=== PATIENT | male | born 1945 | race Caucasian/White ===

== ENCOUNTER → 2019-04-22 13:05 | Outpatient (BNVA) | payer MEDICARE, OTHER, SELFPAY | PROVIDERS: Family Provider Physician Assistant Medical; PCP Internal Medicine Medical Oncology; Visit Provider Nurse Practitioner Family | DX: R06.02 Shortness of breath (principal); R50.9 Fever, unspecified | CPT/HCPCS: 71046; 87804 ==

== ENCOUNTER 2019-05-22 06:00 | Outpatient (CLI) | payer OTHER, MEDICARE, SELFPAY ==
--- NOTE | 2019-05-25 07:37 | ONC FU_ITS ---
Dr. Linares Patient Follow-Up Note Patient: Sai Esqueda Unit #: [id number]: [id number] Dicatated By: Ajay Linares M.D.Date of Visit:May 22, 2019 Onc Med Follow-up/Prog Note Chief Complaint: Myeloma. History of Present Illness: This is a 74 year-old man with IGA myeloma. I had been following him for a low-level IgA kappa monoclonal gammopathy, initially discovered on protein electrophoresis in March of 2008. His previous evaluation, which included bone marrow aspiration/biopsy, had not shown any evidence of myeloma. However, on a followup electrophoresis study in January 2012, the kappa light chain was mildly elevated, and the kappa/lambda ratio was significantly elevated at 26.5. In addition, his IgA level was significantly elevated at 1700 mg/dL. Repeat bone marrow aspiration/biopsy on 01/25/2012 showed increased cellularity at 80% with plasma cells estimated at 14% of the differential. The plasma cells also showed moderate atypical features, including some with binucleation. The FISH panel for myeloma was abnormal, showing 3 copies of the CKS 1B locus at 1q 21 in 65% of the cells, 3 copies of ASS1 locus at 9q34 in 82.5% of the cells, 3 copies of the CCND1 locus at 11q13 in 80.5% of the cells, and 3 copies of the PML locus at 15q22 an 88.5% of cells. He had further staging with PET/CT which showed no evidence of lytic bone involvement. Based on the bone marrow aspiration/biopsy findings, he did appear to have multiple myeloma. His staging evaluation did not show any definite indication for treatment. However, he was increasingly symptomatic in terms of his extreme fatigue, generalized pain, and other symptoms. He was pretty much insistent on starting some form of treatment, and ultimately I did agree to give him a trial of therapy with Velcade/dexamethasone. He began his first cycle in March 2012. Treatment was stopped after the first week (second dose of Velcade) due to multiple side effects. As yet, he has not had any further treatment. He did have a second opinion evaluation at [facility] in October 2012. 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 He has had chronic complaints of profound fatigue and generalized pain. I have not been able to determine a specific cause it. It has been a long-standing problem, and he has attributed it to having had a significant exposure to agent orange during service in [place]. He does have posttraumatic stress disorder. In October of 2011 he was found to have multiple pulmonary emboli by CT pulmonary angiogram. He was anticoagulated initially with Lovenox and subsequently with warfarin, but he had poor tolerance for multiple anticoagulants, including warfarin, Pradaxa, and Xarelto. He has since then just remained on prophylaxis with aspirin, but with no further thromboembolism. In November 2014 he sustained a traumatic fracture of his right humerus. This apparently was a through and through but minimally displaced fracture of the mid humerus. He was seen by an orthopedic surgeon in [place]. There was no indication for surgery, and the fracture was managed conservatively with immobilization. A follow-up x-ray did show evidence of healing. He has continued observation/expectant management for the myeloma, thus far with no obvious progression. His medical illnesses, in addition to IgA myeloma, include COPD, peptic ulcer disease, and degenerative arthritis. He had an episode of pulmonary embolism in 2011. He has posttraumatic stress disorder, and he reports having had significant chemical exposure to agent orange during the [place]. He has chronic fatigue and chronic pain. He has a history of smoking 1 pack of cigarettes daily for approximately 25 years. He quit approximately 1984. He has had some alcohol use in the past, but never heavy. INTERIM HISTORY: A skeletal survey done through the [facility] on 10/19/2018 reported and ill defined lesion involving the midshaft of the right humerus with some expansion of the cortex and with the appearance of an expansile lesion. No other definite bone lesion was identified. There were degenerative changes noted to involve the spine, sacroiliac joints, shoulders, hips, knees, feet, wrists, and hands. He was seen for a scheduled visit on 11/21/2018. At that time he reported new pain in his upper back on the right side and in his lower back/left hip area. With the findings reported on the skeletal survey and with his having new bone pain, I had recommended a restaging PET/CT. That study was completed on 11/25/2018. It showed no findings to indicate osseous metastatic disease. However, compared to the prior study from December 2017, there was development of hypermetabolic lymph nodes in the subcarinal region, right hilum, and bilateral perihilar regions, suspicious for lymphoma. The largest was a right hilar node measuring 1.4 cm with SUV 7.7. As the adenopathy did not appear to correlate with his symptoms, I had recommended close observation/expectant management. He is seen for a scheduled visit. He complains that he is so tired that he cannot hardly lift up his feet. He is still doing light work at home. ECOG score is 1. He has good appetite. He has intermittent low-grade fever, maximum 101 degrees. He has chills and sweating. He recently has had 2 rounds of antibiotic therapy with Augmentin for symptoms of respiratory infection including productive cough and difficulty breathing. He has not been having chest pain. He says he has nausea all the time. He has ongoing problems with constipation. He has to take 4 Dulcolax tablets to get his bowels to move. He still sometimes has difficulty voiding, but his bladder function lately has been pretty good. His pain has been getting worse, and he says his pain pills aren't working. The pain is mainly in the lower back and legs. He also complains that for the past month and a half he has been getting pretty dizzy. He has no focal neurologic symptoms. Medications: B-6 1 (500 mg) Tablet Oral daily, Cholecalciferol 1 (5000 Units) Capsule Oral daily, Magnesium Capsule Oral daily, OxyCODONE HCl 1 (10 mg) Tablet Oral four times a day PRN, Pantoprazole Sodium 1 (40 mg) Tablet, enteric coated Oral daily, Spiriva HandiHaler Capsule Inhalation daily, Trelegy Ellipta 1 (100-62.5-25 mcg/inh) Aerosol Powder, Breath Activated Inhalation q 6 hours, Xanax 1 (0.5 mg) Tablet Oral t.i.d. Allergies: antiinflammatory drugs, Aspirin, Carafate, Codeine Sulfate, Pradaxa, and Prednisone. Review of Systems: Constitutional - He complains that he is so tired he can hardly lift up his feet. He is still doing light work at home. His appetite has been OK, and his weight is stable. He has had fever with his lung infection. The maximum has been 101???. He has chills and sweating. ECOG score is 1, ENMT - He is not having sinus congestion/drainage. No mouth sores. No sore throat or difficulty swallowing, Hematologic/Lymphatic - No abnormal bruising or bleeding, Respiratory - He has had bronchial infection and difficulty breathing. He has cough productive of green sputum. He has had 2 rounds of Augmenetin. He has no pleuritic pain or hemoptysis, Cardiovascular - He is not having chest pain or palpitations, Gastrointestinal - He complains that he is nauseated all the time. No vomiting. His acid reflux is managed adequately with Protonix. He has chronic constipation. No blood in the stool or black stools, Genitourinary (M) - His bladder function has been pretty good. He sometimes has trouble voiding when he first gets up in the morning. No dysuria or hematuria. No urinary frequency. No urgency or incontinence, Musculoskeletal - He has pain in his back and pain down the backs of his legs, Integumentary - He has a small area of skin rash on the left side of his neck, Neurologic - No headache. He has been pretty dizzy for the past 1 1/2 months. No numbness/paresthesias or other focal neurologic symptoms, Psychiatric - He has anxiety and depression. He has difficulty sleeping at night. Vital Signs: Blood pressure 102/68, pulse 73, respirations 17, temp 98.1 degrees, oxygen saturation 98%. Physical Examination: Constitutional - He appears somewhat weak generally, Eyes - Sclerae nonicteric. Conjunctivae clear, ENMT - No lesions noted in the oral cavity, Hematologic/Lymphatic - No cervical, clavicular, or axillary adenopathy, Respiratory - Lungs are clear with diminished air movement bilaterally, Cardiovascular - Heart rhythm is regular. There is no murmur, gallop, or rub noted, Abdomen - Soft. Liver and spleen are not enlarged. There is no abdominal mass or ascites noted and there is no inguinal adenopathy, Extremities - No edema, Neurologic - No focal neurologic deficits noted. Lab/Imaging: Test performed on May 15, 2019 13:25 LDH, Total 122 IU/L Test performed on May 15, 2019 10:51 Glucose 101 mg/dL BUN 13 mg/dL Creatinine 1.04 mg/dL Cr Clearance (Est) 72.27 mL/min Sodium 140 mmol/L Potassium 4.3 mmol/L Chloride 102 mmol/L CO2 27 mmol/L Calcium 9.0 mg/dL Protein, Total 7.2 g/dL Albumin 4.1 g/dL A/G Ratio 0.2 Absolute Value Bilirubin, Total 0.2 mg/dL Alkaline Phosphatase 90 IU/L AST (SGOT) 17 IU/L ALT (SGPT) 12 IU/L Sed Rate 14 mm/hr WBC 6.2 10^9/L RBC 4.36 10^12/L HGB 13.8 g/dL HCT 41.2 % MCV 94.5 fl MCH 31.7 pg MCHC 33.5 g/dL RDW 13.5 % Platelet Count 230 10^9/L MPV 9.4 fL Neutrophils (Gran) 3.34 10^9/L Lymphocytes 2.37 10^9/L Monocytes 0.37 10^9/L Eosinophils 0.04 10^9/L Basophils 0.02 10^9/L Manual Lymphocytes 39 % Manual Monocytes 6 % Manual Eosinophils 1 % Manual Basophils 0 % [place] / Lambda Ratio 26.69 Absolute Value Lambda Light Chain (Quant) 1.27 mg/dL [place] Light Chain (Quant) 33.90 mg/dL Test performed on May 15, 2019 10:50 IGA 2080 mg/dL IGG 230 mg/dL IGM 5 mg/dL PSA 4.24 ng/mL Impression: 1. The patient has IgA kappa monoclonal gammopathy. His previous evaluation was consistent with smoldering myeloma. He has not had any definite indication for treatment. Because of his multiple complaints, he did have a brief trial of therapy with Velcade/Dexamethasone beginning in March 2012. He tolerated it poorly, and he has since then been monitored on observation/expectant management. 2. He had an episode of pulmonary embolism in October 2011. He received suboptimal treatment due to intolerance to multiple anticoagulants. He has since then just remained on aspirin prophylaxis with no further thromboembolism. 3. He has multiple chronic complaints which appear to be unrelated. The most significant have been extreme weakness/fatigue and difficulty breathing. 4. He has had evidence of underlying COPD. 5. He has degenerative arthritis. 6. He has post traumatic stress disorder related to service in [place]. He had significant agent orange exposure during that time. 7. In July 2016 he was found to have a gastric ulcer by EGD, though he had been taking both Protonix and Tagamet. During followup he has continued to have multiple complaints, mainly profound weakness/fatigue and chronic pain. He also has had chronic shortness of breath. There has previously been no documented progression of the myeloma, but he is now reporting increased pain in his upper back on the right side and in his lower back/left hip area. A skeletal survey in October 2018 showed findings which were felt to be suspicious for an expansile lesion in the right humerus, though I had suspected that it was most likely related to the previous fracture. He was then seen on a follow-up visit on 11/21/2018. At that time reported new bone pain in the upper back on the right side and in the lower back/left hip area. With those complaints, he had a restaging PET/CT on 11/25/2018. It showed no evidence of any osseous metastatic disease. However, there was new FDG avid adenopathy in the subcarinal region, right hilum, and bilateral perihilar regions which was felt to be suspicious for lymphoma. The largest node was in the right hilum measuring 1.4 cm with SUV 7.7. As his symptoms did not appear to correlate with the PET/CT findings, I had initially recommended observation/expectant management. His repeat CT scans of the chest, abdomen, and pelvis on 03/09/2019 showed no progression of the lymphadenopathy in the mediastinum. There were inflammatory type changes in both lungs. There was no other lymphadenopathy noted and there were no lytic bone lesions reported. At this point he continues to complain of extreme fatigue. He has worsening pain in the lower back and in both legs, and he continues to complain of shortness of breath. His blood counts were normal, and he has normal renal function and normal calcium. His sed rate also is normal at 14 mm/hour. His quantitative immunoglobulin levels show significantly elevated IgA at 2080 mg/dL. The protein electrophoresis is still pending, but it does appear likely that the myeloma has progressed. It will still be very difficult to determine, though, to what extent it may actually be symptomatic. Plan: If he is confirmed to have a significant increase in the M protein, I will entertain the possibility of restarting treatment for the myeloma. The concerns are that it will be very difficult to determine which if any of his symptoms may actually be due to the myeloma and the fact that he tolerated his previous treatment very poorly. Signed By: Ajay Linares M.D. <<Signature on File>>
== END 2019-05-22 06:01 | disposition home or self-care (01) ==
PROVIDERS: Family Provider Physician Assistant Medical; PCP Physician Assistant Medical; Visit Provider Internal Medicine Medical Oncology
DX: C90.00 Multiple myeloma not having achieved remission (principal); F43.10 Post-traumatic stress disorder, unspecified; J44.9 Chronic obstructive pulmonary disease, unspecified; M19.90 Unspecified osteoarthritis, unspecified site; Z57.5 Occupational exposure to toxic agents in other industries; Z79.899 Other long term (current) drug therapy; Z79.891 Long term (current) use of opiate analgesic; Z79.82 Long term (current) use of aspirin; Z86.711 Personal history of pulmonary embolism; Z87.891 Personal history of nicotine dependence
CPT/HCPCS: 99214

== ENCOUNTER 2019-08-21 11:39 | Outpatient (CLI) | payer MEDICARE, OTHER, SELFPAY ==
--- NOTE | 2019-08-24 06:56 | ONC FU_ITS ---
Dr. Linares Patient Follow-Up Note Patient: Sai Esqueda Unit #: [id number]: 1945 Dicatated By: Ajay Linares M.D.Date of Visit:August 21, 2019 Onc Med Follow-up/Prog Note Chief Complaint: Myeloma. History of Present Illness: This is a 74 year-old man with IGA myeloma. I had been following him for a low-level IgA kappa monoclonal gammopathy, initially discovered on protein electrophoresis in March of 2008. His previous evaluation, which included bone marrow aspiration/biopsy, had not shown any evidence of myeloma. However, on a followup electrophoresis study in January 2012, the kappa light chain was mildly elevated, and the kappa/lambda ratio was significantly elevated at 26.5. In addition, his IgA level was significantly elevated at 1700 mg/dL. Repeat bone marrow aspiration/biopsy on 01/25/2012 showed increased cellularity at 80% with plasma cells estimated at 14% of the differential. The plasma cells also showed moderate atypical features, including some with binucleation. The FISH panel for myeloma was abnormal, showing 3 copies of the CKS 1B locus at 1q 21 in 65% of the cells, 3 copies of ASS1 locus at 9q34 in 82.5% of the cells, 3 copies of the CCND1 locus at 11q13 in 80.5% of the cells, and 3 copies of the PML locus at 15q22 an 88.5% of cells. He had further staging with PET/CT which showed no evidence of lytic bone involvement. Based on the bone marrow aspiration/biopsy findings, he did appear to have multiple myeloma. His staging evaluation did not show any definite indication for treatment. However, he was increasingly symptomatic in terms of his extreme fatigue, generalized pain, and other symptoms. He was pretty much insistent on starting some form of treatment, and ultimately I did agree to give him a trial of therapy with Velcade/dexamethasone. He began his first cycle in March 2012. Treatment was stopped after the first week (second dose of Velcade) due to multiple side effects. As yet, he has not had any further treatment. He did have a second opinion evaluation at [facility] in October 2012. 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 He has had chronic complaints of profound fatigue and generalized pain. I have not been able to determine a specific cause it. It has been a long-standing problem, and he has attributed it to having had a significant exposure to agent orange during service in [place]. He does have posttraumatic stress disorder. In October of 2011 he was found to have multiple pulmonary emboli by CT pulmonary angiogram. He was anticoagulated initially with Lovenox and subsequently with warfarin, but he had poor tolerance for multiple anticoagulants, including warfarin, Pradaxa, and Xarelto. He has since then just remained on prophylaxis with aspirin, but with no further thromboembolism. In November 2014 he sustained a traumatic fracture of his right humerus. This apparently was a through and through but minimally displaced fracture of the mid humerus. He was seen by an orthopedic surgeon in [place]. There was no indication for surgery, and the fracture was managed conservatively with immobilization. A follow-up x-ray did show evidence of healing. He has continued observation/expectant management for the myeloma, thus far with no obvious progression. His medical illnesses, in addition to IgA myeloma, include COPD, peptic ulcer disease, and degenerative arthritis. He had an episode of pulmonary embolism in 2011. He has posttraumatic stress disorder, and he reports having had significant chemical exposure to agent orange during the [place]. He has chronic fatigue and chronic pain. He has a history of smoking 1 pack of cigarettes daily for approximately 25 years. He quit approximately 1984. He has had some alcohol use in the past, but never heavy. INTERIM HISTORY: [facility] reported and ill defined lesion involving the midshaft of the right humerus with some expansion of the cortex and with the appearance of an expansile lesion. No other definite bone lesion was identified. There were degenerative changes noted to involve the spine, sacroiliac joints, shoulders, hips, knees, feet, wrists, and hands. He was seen for a scheduled visit on 11/21/2018. At that time he reported new pain in his upper back on the right side and in his lower back/left hip area. With the findings reported on the skeletal survey and with his having new bone pain, I had recommended a restaging PET/CT. That study was completed on 11/25/2018. It showed no findings to indicate osseous metastatic disease. However, compared to the prior study from December 2017, there was development of hypermetabolic lymph nodes in the subcarinal region, right hilum, and bilateral perihilar regions, suspicious for lymphoma. The largest was a right hilar node measuring 1.4 cm with SUV 7.7. As the adenopathy did not appear to correlate with his symptoms, I had recommended close observation/expectant management. Further evaluation with CT scans of the chest, abdomen, and pelvis on 03/09/2019 showed slightly prominent pretracheal and hilar lymph nodes, unchanged compared to the PET/CT from November 2018. The largest lymph nodes were noted to measure 8 to 9 mm. There were moderate chronic emphysematous changes with small micronodular infiltrates in the right middle lobe, right upper lobe, and anterior segment of the left upper lobe, felt to be most likely inflammatory/infectious. There was no adenopathy in the abdomen/pelvis. The prostate was noted to be enlarged measuring 5.6 x 4.1 x 4.3 cm. PSA was just slightly above normal range at 4.24 ng/mL. He was seen for a follow-up visit in May 2019. At that time he was having fever and symptoms of respiratory infection, for which he was given antibiotic therapy with azithromycin. There was no change in the monoclonal protein or in the free light chain studies. He is seen for a scheduled visit. He has still not been feeling good generally. He is still able to do light work. ECOG score is 1. His appetite lately has been okay. His weight is stable. 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 He has night sweating. He has allergy related sinus symptoms. He has had soreness in his mouth related to problems with lower dentures, specifically the posts. He also has had some sore throat. He has chronic shortness of breath, but his breathing has been pretty good with Trelegy. He has some cough productive of white or greenish phlegm. He does not complain of chest pain. He complains that he has nausea all the time. His acid reflux is adequately managed with Protonix. He has chronic constipation, but he has been able to manage that with Relistor, though he does have to take it every other day. His bladder function is not so good, but that is also chronic. He complains that his bones hurt, particularly in his lower back and down his hips and legs, especially the right leg. For the past several weeks he also has had numbness in his right leg. He has no other focal neurologic symptoms. Medications: B-6 1 (500 mg) Tablet Oral daily, Cholecalciferol 1 (5000 Units) Capsule Oral daily, Magnesium Capsule Oral daily, OxyCODONE HCl 1 (10 mg) Tablet Oral four times a day PRN, Pantoprazole Sodium 1 (40 mg) Tablet, enteric coated Oral daily, Spiriva HandiHaler Capsule Inhalation daily, Trelegy Ellipta 1 (100-62.5-25 mcg/inh) Aerosol Powder, Breath Activated Inhalation q 6 hours, Xanax 1 (0.5 mg) Tablet Oral t.i.d. Allergies: antiinflammatory drugs, Aspirin, Carafate, Codeine Sulfate, Pradaxa, and Prednisone. Review of Systems: Constitutional - His energy is okay. He does some light outside work. His appetite is good and weight is stable. He has low grade fevers. No chills. He has hot flashes with sweating at night. ECOG 1, ENMT - He has seasonal allergies. No mouth sores. His sore throat. No difficulty swallowing, Hematologic/Lymphatic - No abnormal bruising or bleeding, Respiratory - No shortness of breath. He has an occasional productive cough. No pleuritic pain or hemoptysis, Cardiovascular - No angina pain. No palpitations, Gastrointestinal - He has constant nausea. No vomiting. His heartburn is well managed with Protonix. No diarrhea. He takes Relistor to manage his constipation. No blood in the stool or black stools, Genitourinary (M) - No dysuria or hematuria. No urinary frequency. No urgency or incontinence, Musculoskeletal - He continues to have pain in his back, hip and legs. His bone pain is unchanged, Integumentary - No skin complications, Neurologic - No headache or dizziness. No numbness/paresthesias or other focal neurologic symptoms, Psychiatric - His anxiety is well managed with Alprazolam. No depression. He sleeps well with Alprazolam. Vital Signs: Performed on August 21, 2019 10:15 Height - 70.00 in Weight - 182.5 lbs (HIGH) BSA - 2.01 sq.m BMI - 26.19 Temperature - 97.8 F (LOW) Pulse - 72 /min Respiration - 16 /min BP - 120/60 mm(hg) O2 Sat - 98 % Pain - 9 Physical Examination: Constitutional - He looks pretty good generally, Eyes - Sclerae nonicteric. Conjunctivae clear, ENMT - No lesions noted in the oral cavity, Hematologic/Lymphatic - No cervical, clavicular, or axillary adenopathy, Respiratory - Lungs are clear with diminished air movement bilaterally, Cardiovascular - Heart rhythm is regular. There is no murmur, gallop, or rub noted, Abdomen - Soft. Liver and spleen are not enlarged. There is no abdominal mass or ascites noted and there is no inguinal adenopathy, Extremities - No edema, Neurologic - No focal neurologic deficits noted. Lab/Imaging: Test performed on August 17, 2019 10:55 Lambda Light Chain 1.07 Creighton Light Chain 27.62 Test performed on August 14, 2019 10:55 Glucose 126 mg/dL Protein, Total 7.4 g/dL Albumin, SPE 4.41 g/dL Creatinine 13 mg/dL Cr Clearance (Est) 5.78 mL/min BUN/Creatinine Ratio 1.10 Absolute Value Sodium 138 mmol/L Potassium 4.8 mmol/L Chloride 100 mmol/L CO2 27 mmol/L Calcium 9.1 mg/dL Albumin 4.1 g/dL Bilirubin, Total 0.3 mg/dL Alkaline Phosphatase 92 IU/L AST (SGOT) 16 IU/L ALT (SGPT) 10 IU/L WBC 6.0 10^9/L RBC 4.40 10^12/L HGB 14.0 g/dL HCT 41.2 % MCV 93.6 fl MCH 31.8 pg MCHC 34.0 g/dL RDW 12.9 % Platelet Count 221 10^9/L MPV 9.1 fL Neutrophils (Gran) 3.66 10^9/L Lymphocytes 1.94 10^9/L Monocytes 0.33 10^9/L Eosinophils 0.02 10^9/L Basophils 0.02 10^9/L Manual Lymphocytes 32 % Manual Monocytes 6 % Manual Eosinophils 0 % Manual Basophils 0 % Creighton / Lambda Ratio 25.81 Absolute Value Aeapm-0-gnngdfhc 0.21 g/dL Pseoj-3-oajupuhe 0.76 g/dL Beta Globulin 1.77 g/dL Gamma Globulin 0.24 g/dL SPE Interpretation No significant change in monoclonal proteinemia since prior study Impression: 1. The patient has IgA kappa monoclonal gammopathy. His previous evaluation was consistent with smoldering myeloma. He has not had any definite indication for treatment. Because of his multiple complaints, he did have a brief trial of therapy with Velcade/Dexamethasone beginning in March 2012. He tolerated it poorly, and he has since then been monitored on observation/expectant management. 2. He had an episode of pulmonary embolism in October 2011. He received suboptimal treatment due to intolerance to multiple anticoagulants. He has since then just remained on aspirin prophylaxis with no further thromboembolism. 3. He has multiple chronic complaints which appear to be unrelated. The most significant have been extreme weakness/fatigue and difficulty breathing. 4. He has had evidence of underlying COPD. 5. He has degenerative arthritis. 6. He has post traumatic stress disorder related to service in [place]. He had significant agent orange exposure during that time. 7. In July 2016 he was found to have a gastric ulcer by EGD, though he had been taking both Protonix and Tagamet. During followup he has continued to have multiple complaints, mainly profound weakness/fatigue and chronic pain. He also has had chronic shortness of breath. There has previously been no documented progression of the myeloma, but he is now reporting increased pain in his upper back on the right side and in his lower back/left hip area. A skeletal survey in October 2018 showed findings which were felt to be suspicious for an expansile lesion in the right humerus, though I had suspected that it was most likely related to the previous fracture. He was then seen on a follow-up visit on 11/21/2018. At that time reported new bone pain in the upper back on the right side and in the lower back/left hip area. With those complaints, he had a restaging PET/CT on 11/25/2018. It showed no evidence of any osseous metastatic disease. However, there was new FDG avid adenopathy in the subcarinal region, right hilum, and bilateral perihilar regions which was felt to be suspicious for lymphoma. The largest node was in the right hilum measuring 1.4 cm with SUV 7.7. As his symptoms did not appear to correlate with the PET/CT findings, I had initially recommended observation/expectant management. His repeat CT scans of the chest, abdomen, and pelvis on 03/09/2019 showed no progression of the lymphadenopathy in the mediastinum. There were inflammatory type changes in both lungs. There was no other lymphadenopathy noted and there were no lytic bone lesions reported. As of his follow-up visit in May 2019 there was no change in his monoclonal protein nor in his free light chain studies. His overall clinical status has since then remained stable. He has chronic fatigue and chronic pain, which is unchanged. He also has chronic constipation, which currently is being managed adequately with Relistor. His M protein remains stable, and his serum free light chain assay shows normal kappa/lambda ratio. Plan: He remains on observation/expectant management for the myeloma. His medications remain the same. He will continue to Relistor for the constipation. I will see him again in 3 months, or sooner as needed. Signed By: Ajay Linares M.D. <<Signature on File>>
== END 2019-08-21 11:40 | disposition home or self-care (01) ==
LOC: ONCMED 11:39
PROVIDERS: PCP Physician Assistant Medical; Visit Provider Internal Medicine Medical Oncology
DX: C90.00 Multiple myeloma not having achieved remission (principal); D47.2 Monoclonal gammopathy; J44.9 Chronic obstructive pulmonary disease, unspecified; M19.90 Unspecified osteoarthritis, unspecified site; F43.10 Post-traumatic stress disorder, unspecified; Y37.90XS Military operations, unspecified, sequela; Z77.098 Contact with and (suspected) exposure to other hazardous, chiefly nonmedicinal, chemicals; G89.29 Other chronic pain; K59.00 Constipation, unspecified; R53.82 Chronic fatigue, unspecified; Z86.711 Personal history of pulmonary embolism; Z79.82 Long term (current) use of aspirin; Z87.11 Personal history of peptic ulcer disease
CPT/HCPCS: 99214

== ENCOUNTER 2019-11-20 13:33 | Outpatient (CLI) | payer MEDICARE, OTHER, SELFPAY ==
--- NOTE | 2019-11-26 16:12 | ONC FU_ITS ---
Dr. Linares Patient Follow-Up Note Patient: Sai Esqueda Unit #: [id number]: 1945 Dicatated By: Ajay Linares M.D.Date of Visit:Nov 20, 2019 Onc Med Follow-up/Prog Note Chief Complaint: Myeloma. History of Present Illness: This is a 74 year-old man with IGA myeloma. I had been following him for a low-level IgA kappa monoclonal gammopathy, initially discovered on protein electrophoresis in March of 2008. His previous evaluation, which included bone marrow aspiration/biopsy, had not shown any evidence of myeloma. However, on a followup electrophoresis study in January 2012, the kappa light chain was mildly elevated, and the kappa/lambda ratio was significantly elevated at 26.5. In addition, his IgA level was significantly elevated at 1700 mg/dL. Repeat bone marrow aspiration/biopsy on 01/25/2012 showed increased cellularity at 80% with plasma cells estimated at 14% of the differential. The plasma cells also showed moderate atypical features, including some with binucleation. The FISH panel for myeloma was abnormal, showing 3 copies of the CKS 1B locus at 1q 21 in 65% of the cells, 3 copies of ASS1 locus at 9q34 in 82.5% of the cells, 3 copies of the CCND1 locus at 11q13 in 80.5% of the cells, and 3 copies of the PML locus at 15q22 an 88.5% of cells. He had further staging with PET/CT which showed no evidence of lytic bone involvement. Based on the bone marrow aspiration/biopsy findings, he did appear to have multiple myeloma. His staging evaluation did not show any definite indication for treatment. However, he was increasingly symptomatic in terms of his extreme fatigue, generalized pain, and other symptoms. He was pretty much insistent on starting some form of treatment, and ultimately I did agree to give him a trial of therapy with Velcade/dexamethasone. He began his first cycle in March 2012. Treatment was stopped after the first week (second dose of Velcade) due to multiple side effects. As yet, he has not had any further treatment. He did have a second opinion evaluation at [facility] in October 2012. 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 He has had chronic complaints of profound fatigue and generalized pain. I have not been able to determine a specific cause it. It has been a long-standing problem, and he has attributed it to having had a significant exposure to agent orange during service in [place]. He does have posttraumatic stress disorder. In October of 2011 he was found to have multiple pulmonary emboli by CT pulmonary angiogram. He was anticoagulated initially with Lovenox and subsequently with warfarin, but he had poor tolerance for multiple anticoagulants, including warfarin, Pradaxa, and Xarelto. He has since then just remained on prophylaxis with aspirin, but with no further thromboembolism. In November 2014 he sustained a traumatic fracture of his right humerus. This apparently was a through and through but minimally displaced fracture of the mid humerus. He was seen by an orthopedic surgeon in [place]. There was no indication for surgery, and the fracture was managed conservatively with immobilization. A follow-up x-ray did show evidence of healing. He has continued observation/expectant management for the myeloma, thus far with no obvious progression. His medical illnesses, in addition to IgA myeloma, include COPD, peptic ulcer disease, and degenerative arthritis. He had an episode of pulmonary embolism in 2011. He has posttraumatic stress disorder, and he reports having had significant chemical exposure to agent orange during the [place]. He has chronic fatigue and chronic pain. He has a history of smoking 1 pack of cigarettes daily for approximately 25 years. He quit approximately 1984. He has had some alcohol use in the past, but never heavy. INTERIM HISTORY: [facility]2018 reported and ill defined lesion involving the midshaft of the right humerus with some expansion of the cortex and with the appearance of an expansile lesion. No other definite bone lesion was identified. There were degenerative changes noted to involve the spine, sacroiliac joints, shoulders, hips, knees, feet, wrists, and hands. He was seen for a scheduled visit on 11/21/2018. At that time he reported new pain in his upper back on the right side and in his lower back/left hip area. With the findings reported on the skeletal survey and with his having new bone pain, I had recommended a restaging PET/CT. That study was completed on 11/25/2018. It showed no findings to indicate osseous metastatic disease. However, compared to the prior study from December 2017, there was development of hypermetabolic lymph nodes in the subcarinal region, right hilum, and bilateral perihilar regions, suspicious for lymphoma. The largest was a right hilar node measuring 1.4 cm with SUV 7.7. As the adenopathy did not appear to correlate with his symptoms, I had recommended close observation/expectant management. Further evaluation with CT scans of the chest, abdomen, and pelvis on 03/09/2019 showed slightly prominent pretracheal and hilar lymph nodes, unchanged compared to the PET/CT from November 2018. The largest lymph nodes were noted to measure 8 to 9 mm. There were moderate chronic emphysematous changes with small micronodular infiltrates in the right middle lobe, right upper lobe, and anterior segment of the left upper lobe, felt to be most likely inflammatory/infectious. There was no adenopathy in the abdomen/pelvis. The prostate was noted to be enlarged measuring 5.6 x 4.1 x 4.3 cm. PSA was just slightly above normal range at 4.24 ng/mL. He was seen for a follow-up visit in May 2019. At that time he was having fever and symptoms of respiratory infection, for which he was given antibiotic therapy with azithromycin. There was no change in the monoclonal protein or in the free light chain studies. He is seen for a scheduled visit. He feels terrible. He complains that he has no energy, though he is still doing light work at home. ECOG score is 1. His appetite is not as good, but his weight is up a couple of pounds. He does not have fever. He says he has sweating every night. He has really bad sinus drainage. He also complains of sore mouth and sore throat. He says he runs out of air with any activity. He has a COPD cough. He reports having episodes of pain that started in his right shoulder and radiated across to his heart. He says it hits him all of a sudden, does not last long. He has been having the episodes about every 2 to 3 days. He has nausea every morning. He has ongoing problems with constipation. His bowels have been moving with Relistor. He says his bladder function is no good. He reports having prostate infection all the time . He has real sharp pain in his bones, enough that it brings him to his knees. His most significant pain is in the back and legs. Medications: B-6 1 (500 mg) Tablet Oral daily, Cholecalciferol 1 (5000 Units) Capsule Oral daily, Magnesium Capsule Oral daily, OxyCODONE HCl 1 (10 mg) Tablet Oral four times a day PRN, Pantoprazole Sodium 1 (40 mg) Tablet, enteric coated Oral daily, Spiriva HandiHaler Capsule Inhalation daily, Trelegy Ellipta 1 (100-62.5-25 mcg/inh) Aerosol Powder, Breath Activated Inhalation q 6 hours, Xanax 1 (0.5 mg) Tablet Oral t.i.d. Allergies: antiinflammatory drugs, Aspirin, Carafate, Codeine Sulfate, Pradaxa, and Prednisone. Review of Systems: Constitutional - He has no energy. He is still doing light work at home. Appetite is not as good, but his weight is stable. No fever. He has sweating every night. ECOG score is 1, ENMT - He has sinus congestion/drainage. He has sore mouth and sore throat. No difficulty swallowing, Hematologic/Lymphatic - No abnormal bruising or bleeding, Respiratory - He has shortness of breath with any activity. He has COPD cough. No pleuritic pain or hemoptysis, Cardiovascular - He has been having pain from his right shoulder across his chest to his heart. No palpitations, Gastrointestinal - He has nausea every morning. No heartburn or acid reflux. He has chronic constipation. No blood in the stool or black stools, Genitourinary (M) - He says he has prostate infection all the time, and he says his prostate swells up. He is having more difficulty voiding, Musculoskeletal - He has pain in his back and legs, Integumentary - No skin rash, Neurologic - No headache or dizziness. He has a little numbness in both legs. No other focal neurologic symptoms, Psychiatric - He has anxiety and depression. He says his nerves are terrible. He takes alprazolam for the anxiety. It also helps with his insomnia. Vital Signs: Performed on Nov 20, 2019 13:57 Height - 70.00 in Weight - 184 lbs (HIGH) BSA - 2.01 sq.m BMI - 26.40 Temperature - 98.2 F (LOW) Pulse - 70 /min Respiration - 18 /min BP - 118/70 mm(hg) O2 Sat - 97 % Pain - 8 Physical Examination: Constitutional - He looks pretty good generally, Eyes - Sclerae nonicteric. Conjunctivae clear, ENMT - No lesions noted in the oral cavity, Hematologic/Lymphatic - No cervical, clavicular, or axillary adenopathy, Respiratory - Lungs are clear with diminished air movement bilaterally, Cardiovascular - Heart rhythm is regular. There is no murmur, gallop, or rub noted, Abdomen - Soft. Liver and spleen are not enlarged. There is no abdominal mass or ascites noted and there is no inguinal adenopathy, Extremities - No edema. He has some thickening in the palms of both hands, consistent with developing Dupuytren's contractures, Neurologic - No focal neurologic deficits noted. Lab/Imaging: Test performed on Nov 13, 2019 13:27 Glucose 103 mg/dL Protein, Total 7.3 g/dL Albumin, SPE 3.87 g/dL BUN 14 mg/dL Creatinine 1.28 mg/dL Cr Clearance (Est) 58.72 mL/min Sodium 141 mmol/L Potassium 4.7 mmol/L Chloride 107 mmol/L CO2 25 mmol/L Calcium 9.3 mg/dL Albumin 4.0 g/dL Bilirubin, Total 0.2 mg/dL Alkaline Phosphatase 94 IU/L AST (SGOT) 15 IU/L ALT (SGPT) 13 IU/L WBC 7.4 10^9/L RBC 4.33 10^12/L HGB 13.8 g/dL HCT 40.8 % MCV 94.2 fl MCH 31.9 pg MCHC 33.8 g/dL RDW 12.8 % Platelet Count 239 10^9/L MPV 9.5 fL Neutrophils (Gran) 5.00 10^9/L Lymphocytes 1.98 10^9/L Monocytes 0.35 10^9/L Eosinophils 0.01 10^9/L Basophils 0.01 10^9/L Manual Lymphocytes 27 % Manual Monocytes 5 % Manual Eosinophils 0 % Manual Basophils 0 % [place] / Lambda Ratio 24.87 Absolute Value Lambda Light Chain 1.47 [place] Light Chain 36.56 [id number] 0.25 g/dL Nvjlg-[id number] 0.69 g/dL Beta Globulin 2.34 g/dL Gamma Globulin 0.13 g/dL SPE Interpretation Significant increase in monoclonal proteinemia since prior study Impression: 1. The patient has IgA kappa monoclonal gammopathy. His previous evaluation was consistent with smoldering myeloma. He has not had any definite indication for treatment. Because of his multiple complaints, he did have a brief trial of therapy with Velcade/Dexamethasone beginning in March 2012. He tolerated it poorly, and he has since then been monitored on observation/expectant management. 2. He had an episode of pulmonary embolism in October 2011. He received suboptimal treatment due to intolerance to multiple anticoagulants. He has since then just remained on aspirin prophylaxis with no further thromboembolism. 3. He has multiple chronic complaints which appear to be unrelated. The most significant have been extreme weakness/fatigue and difficulty breathing. 4. He has had evidence of underlying COPD. 5. He has degenerative arthritis. 6. He has post traumatic stress disorder related to service in [place]. He had significant agent orange exposure during that time. 7. In July 2016 he was found to have a gastric ulcer by EGD, though he had been taking both Protonix and Tagamet. During followup he has continued to have multiple complaints, mainly profound weakness/fatigue and chronic pain. He also has had chronic shortness of breath. There has previously been no documented progression of the myeloma, but he is now reporting increased pain in his upper back on the right side and in his lower back/left hip area. A skeletal survey in October 2018 showed findings which were felt to be suspicious for an expansile lesion in the right humerus, though I had suspected that it was most likely related to the previous fracture. He was then seen on a follow-up visit on 11/21/2018. At that time reported new bone pain in the upper back on the right side and in the lower back/left hip area. With those complaints, he had a restaging PET/CT on 11/25/2018. It showed no evidence of any osseous metastatic disease. However, there was new FDG avid adenopathy in the subcarinal region, right hilum, and bilateral perihilar regions which was felt to be suspicious for lymphoma. The largest node was in the right hilum measuring 1.4 cm with SUV 7.7. As his symptoms did not appear to correlate with the PET/CT findings, I had initially recommended observation/expectant management. His repeat CT scans of the chest, abdomen, and pelvis on 03/09/2019 showed no progression of the lymphadenopathy in the mediastinum. There were inflammatory type changes in both lungs. There was no other lymphadenopathy noted and there were no lytic bone lesions reported. As of his follow-up visit in May 2019 there was no change in his monoclonal protein nor in his free light chain studies. During followup he has continued to complain of extreme fatigue. He also complains of shortness of breath, and he has chronic pain. He also has chronic constipation, which he has been able to manage adequately with Relistor. His M protein has been increasing gradually, but his blood counts remain normal and his renal function remains stable, so that it appears unlikely that his myeloma is symptomatic. Plan: He remains on observation/expectant management for the myeloma. His medications remain the same. He will continue to Relistor for the constipation. I will see him again in 3 months. Signed By: Ajay Linares M.D. <<Signature on File>>
== END 2019-11-20 13:34 | disposition home or self-care (01) ==
LOC: ONCMED 13:33
PROVIDERS: PCP Physician Assistant Medical; Visit Provider Internal Medicine Medical Oncology
DX: C90.00 Multiple myeloma not having achieved remission (principal); R53.1 Weakness; K59.00 Constipation, unspecified; J44.9 Chronic obstructive pulmonary disease, unspecified; M19.90 Unspecified osteoarthritis, unspecified site; F43.10 Post-traumatic stress disorder, unspecified; Y37.90XS Military operations, unspecified, sequela; Z77.098 Contact with and (suspected) exposure to other hazardous, chiefly nonmedicinal, chemicals
CPT/HCPCS: 99214

== ENCOUNTER 2020-02-19 12:55 | Outpatient (CLI) | payer MEDICARE, OTHER, SELFPAY ==
--- NOTE | 2020-02-22 08:01 | ONC FU_ITS ---
Dr. Linares Patient Follow-Up Note Patient: Sai Esqueda Unit #: [id number]: 1945 Dicatated By: Ajay Linares M.D.Date of Visit:Feb 19, 2020 Onc Med Follow-up/Prog Note Chief Complaint: Myeloma. History of Present Illness: This is a 74 year-old man with IGA myeloma. I had been following him for a low-level IgA kappa monoclonal gammopathy, initially discovered on protein electrophoresis in March of 2008. His previous evaluation, which included bone marrow aspiration/biopsy, had not shown any evidence of myeloma. However, on a followup electrophoresis study in January 2012, the kappa light chain was mildly elevated, and the kappa/lambda ratio was significantly elevated at 26.5. In addition, his IgA level was significantly elevated at 1700 mg/dL. Repeat bone marrow aspiration/biopsy on 01/25/2012 showed increased cellularity at 80% with plasma cells estimated at 14% of the differential. The plasma cells also showed moderate atypical features, including some with binucleation. The FISH panel for myeloma was abnormal, showing 3 copies of the CKS 1B locus at 1q 21 in 65% of the cells, 3 copies of ASS1 locus at 9q34 in 82.5% of the cells, 3 copies of the CCND1 locus at 11q13 in 80.5% of the cells, and 3 copies of the PML locus at 15q22 an 88.5% of cells. He had further staging with PET/CT which showed no evidence of lytic bone involvement. Based on the bone marrow aspiration/biopsy findings, he did appear to have multiple myeloma. His staging evaluation did not show any definite indication for treatment. However, he was increasingly symptomatic in terms of his extreme fatigue, generalized pain, and other symptoms. He was pretty much insistent on starting some form of treatment, and ultimately I did agree to give him a trial of therapy with Velcade/dexamethasone. He began his first cycle in March 2012. Treatment was stopped after the first week (second dose of Velcade) due to multiple side effects. As yet, he has not had any further treatment. He did have a second opinion evaluation at [facility] in October 2012. 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 He has had chronic complaints of profound fatigue and generalized pain. I have not been able to determine a specific cause it. It has been a long-standing problem, and he has attributed it to having had a significant exposure to agent orange during service in [place]. He does have posttraumatic stress disorder. In October of 2011 he was found to have multiple pulmonary emboli by CT pulmonary angiogram. He was anticoagulated initially with Lovenox and subsequently with warfarin, but he had poor tolerance for multiple anticoagulants, including warfarin, Pradaxa, and Xarelto. He has since then just remained on prophylaxis with aspirin, but with no further thromboembolism. In November 2014 he sustained a traumatic fracture of his right humerus. This apparently was a through and through but minimally displaced fracture of the mid humerus. He was seen by an orthopedic surgeon in [place]. There was no indication for surgery, and the fracture was managed conservatively with immobilization. A follow-up x-ray did show evidence of healing. He has continued observation/expectant management for the myeloma, thus far with no obvious progression. His medical illnesses, in addition to IgA myeloma, include COPD, peptic ulcer disease, and degenerative arthritis. He had an episode of pulmonary embolism in 2011. He has posttraumatic stress disorder, and he reports having had significant chemical exposure to agent orange during the [place]. He has chronic fatigue and chronic pain. He has a history of smoking 1 pack of cigarettes daily for approximately 25 years. He quit approximately 1984. He has had some alcohol use in the past, but never heavy. INTERIM HISTORY: [facility] reported and ill defined lesion involving the midshaft of the right humerus with some expansion of the cortex and with the appearance of an expansile lesion. No other definite bone lesion was identified. There were degenerative changes noted to involve the spine, sacroiliac joints, shoulders, hips, knees, feet, wrists, and hands. He was seen for a scheduled visit on 11/21/2018. At that time he reported new pain in his upper back on the right side and in his lower back/left hip area. With the findings reported on the skeletal survey and with his having new bone pain, I had recommended a restaging PET/CT. That study was completed on 11/25/2018. It showed no findings to indicate osseous metastatic disease. However, compared to the prior study from December 2017, there was development of hypermetabolic lymph nodes in the subcarinal region, right hilum, and bilateral perihilar regions, suspicious for lymphoma. The largest was a right hilar node measuring 1.4 cm with SUV 7.7. As the adenopathy did not appear to correlate with his symptoms, I had recommended close observation/expectant management. Further evaluation with CT scans of the chest, abdomen, and pelvis on 03/09/2019 showed slightly prominent pretracheal and hilar lymph nodes, unchanged compared to the PET/CT from November 2018. The largest lymph nodes were noted to measure 8 to 9 mm. There were moderate chronic emphysematous changes with small micronodular infiltrates in the right middle lobe, right upper lobe, and anterior segment of the left upper lobe, felt to be most likely inflammatory/infectious. There was no adenopathy in the abdomen/pelvis. The prostate was noted to be enlarged measuring 5.6 x 4.1 x 4.3 cm. PSA was just slightly above normal range at 4.24 ng/mL. He was seen for a follow-up visit in May 2019. At that time he was having fever and symptoms of respiratory infection, for which he was given antibiotic therapy with azithromycin. There was no change in the monoclonal protein or in the free light chain studies. He continued on observation/expectant management for the myeloma, as there appeared to be no indication for treatment. He is seen for a scheduled visit. He continues to complain that he has no energy. He reports being extremely fatigued, though he is able to do light work at home. His ECOG score is 1. His appetite comes and goes. His weight is up a few pounds. He does not have fever. He does have some night sweating. He is short of breath, complains that his breathing has been pretty bad. He does not have cough and he does not complain of chest pain. He complains that he is nauseated all the time. His acid reflux is adequately managed with pantoprazole. He has chronic constipation, which he says is terrible. He is managing it with Relistor. He sometimes has hesitancy with urination, mainly in the mornings. Bladder function, though, remains adequate. He does complain that he is having no semen output with orgasms. He continues to complain that he has pain all the time. The most significant is in his hips going up and down his spine on both sides. Is also been having pain in his right rib cage with turning or straining. He has muscle cramps in his hands. He does not complain of headache. He sometimes has dizziness. He has no focal neurologic symptoms. Medications: B-6 1 (500 mg) Tablet Oral daily, Cholecalciferol 1 (5000 Units) Capsule Oral daily, Magnesium Capsule Oral daily, OxyCODONE HCl 1 (10 mg) Tablet Oral four times a day PRN, Pantoprazole Sodium 1 (40 mg) Tablet, enteric coated Oral daily, Spiriva HandiHaler Capsule Inhalation daily, Trelegy Ellipta 1 (100-62.5-25 mcg/inh) Aerosol Powder, Breath Activated Inhalation q 6 hours, Xanax 1 (0.5 mg) Tablet Oral t.i.d. Allergies: antiinflammatory drugs, Aspirin, Carafate, Codeine Sulfate, Pradaxa, and Prednisone. Review of Systems: Constitutional - He has no energy, but he is able to do some light work at home. Appetite comes and goes. His weight is up a few pounds. He does not have fever, he does have some night sweating. ECOG score is 1, ENMT - No sinus congestion/drainage. No mouth sores. No sore throat or difficulty swallowing, Hematologic/Lymphatic - No abnormal bruising or bleeding, Respiratory - He says his breathing has been pretty bad lately, presumably due to the weather changes. No cough. No pleuritic pain or hemoptysis, Cardiovascular - No angina pain. No palpitations, Gastrointestinal - He has nausea all the time. Acid reflux is adequately managed with Protonix. He has constipation, and he complains that his bowels have been terrible. He is managing it with Relistor. No blood in the stool or black stools, Genitourinary (M) - He has some hesitancy with urination when he first gets up in the morning. Bladder function is otherwise okay.No dysuria or hematuria. No urgency or incontinence. He does complain that he does not produce any semen when he has an orgasm, Musculoskeletal - He has chronic pain, he complains that he hurts all the time. The most significant pain is in the hips going up his spine on both sides. He also has muscle cramps in his hands, Integumentary - No skin rash, Neurologic - No headache. He sometimes has dizziness. No numbness or tingling. No other focal neurologic symptoms, Psychiatric - He has anxiety/depression. He has insomnia. He is able to sleep with alprazolam. Vital Signs: Performed on Feb 19, 2020 12:48 Height - 70.00 in Weight - 190 lbs (HIGH) BSA - 2.04 sq.m BMI - 27.26 Temperature - 97.9 F (LOW) Pulse - 70 /min Respiration - 17 /min BP - 118/70 mm(hg) O2 Sat - 97 % Pain - 9 Physical Examination: Constitutional - He does not appear acutely ill, Eyes - Sclerae nonicteric. Conjunctivae clear, ENMT - No lesions noted in the oral cavity, Hematologic/Lymphatic - No cervical, clavicular, or axillary adenopathy, Respiratory - Lungs are clear with diminished air movement bilaterally, Cardiovascular - Heart rhythm is regular. There is no murmur, gallop, or rub noted, Abdomen - Soft. Liver and spleen are not enlarged. There is no abdominal mass or ascites noted and there is no inguinal adenopathy, Extremities - No edema, Neurologic - No focal neurologic deficits noted. Lab/Imaging: Test performed on Feb 14, 2020 09:27 Sed Rate 14 mm/hr Test performed on Feb 14, 2020 09:23 Glucose 111 mg/dL BUN 14 mg/dL Creatinine 1.29 mg/dL Cr Clearance (Est) 58.26 mL/min Sodium 138 mmol/L Potassium 4.5 mmol/L Chloride 102 mmol/L CO2 28 mmol/L Calcium 9 mg/dL Protein, Total 7.3 g/dL Albumin 4.1 g/dL Bilirubin, Total 0.2 mg/dL Alkaline Phosphatase 100 IU/L AST (SGOT) 12 IU/L ALT (SGPT) 12 IU/L WBC 6.1 10^9/L RBC 4.23 10^12/L HGB 13.3 g/dL HCT 40.6 % MCV 96 fl MCH 31.4 pg MCHC 32.8 g/dL RDW 13.2 % Platelet Count 257 10^9/L Neutrophils (Gran) 3.78 10^9/L Lymphocytes 1.99 10^9/L Monocytes 0.29 10^9/L Eosinophils 0.02 10^9/L Basophils 0.02 10^9/L PSA 2.8 ng/mL Test performed on Feb 14, 2020 08:56 Albumin, SPE 3.67 g/dL [place] / Lambda Ratio 22.58 Absolute Value Lambda Light Chain 1.70 [place] Light Chain 38.38 Ucila-3-khztpqiy 0.28 g/dL Sqoiw-5-[id number] 0.75 g/dL Beta Globulin 2.40 g/dL Gamma Globulin 0.15 g/dL M-Steffen 1.60 g/dL Impression: 1. The patient has IgA kappa monoclonal gammopathy. His previous evaluation was consistent with smoldering myeloma. He has not had any definite indication for treatment. Because of his multiple complaints, he did have a brief trial of therapy with Velcade/Dexamethasone beginning in March 2012. He tolerated it poorly, and he has since then been monitored on observation/expectant management. 2. He had an episode of pulmonary embolism in October 2011. He received suboptimal treatment due to intolerance to multiple anticoagulants. He has since then just remained on aspirin prophylaxis with no further thromboembolism. 3. He has multiple chronic complaints which appear to be unrelated. The most significant have been extreme weakness/fatigue and difficulty breathing. 4. He has had evidence of underlying COPD. 5. He has degenerative arthritis. 6. He has post traumatic stress disorder related to service in [place]. He had significant agent orange exposure during that time. 7. In July 2016 he was found to have a gastric ulcer by EGD, though he had been taking both Protonix and Tagamet. During followup he has continued to have multiple complaints, mainly profound weakness/fatigue and chronic pain. He also has had chronic shortness of breath. There has previously been no documented progression of the myeloma, but he is now reporting increased pain in his upper back on the right side and in his lower back/left hip area. A skeletal survey in October 2018 showed findings which were felt to be suspicious for an expansile lesion in the right humerus, though I had suspected that it was most likely related to the previous fracture. He was then seen on a follow-up visit on 11/21/2018. At that time reported new bone pain in the upper back on the right side and in the lower back/left hip area. With those complaints, he had a restaging PET/CT on 11/25/2018. It showed no evidence of any osseous metastatic disease. However, there was new FDG avid adenopathy in the subcarinal region, right hilum, and bilateral perihilar regions which was felt to be suspicious for lymphoma. The largest node was in the right hilum measuring 1.4 cm with SUV 7.7. As his symptoms did not appear to correlate with the PET/CT findings, I had initially recommended observation/expectant management. His repeat CT scans of the chest, abdomen, and pelvis on 03/09/2019 showed no progression of the lymphadenopathy in the mediastinum. There were inflammatory type changes in both lungs. There was no other lymphadenopathy noted and there were no lytic bone lesions reported. As of his follow-up visit in May 2019 there was no change in his monoclonal protein nor in his free light chain studies. During followup he has continued to complain of extreme fatigue. He also complains of shortness of breath. He has chronic pain and he also has chronic constipation, which he manages with Relistor. During follow-up there has been a very gradual increase in his M protein, though the current level does appear stable. Despite his multiple chronic complaints, there has been no indication for treatment of the myeloma. He has a new complaint of having no ejaculate with orgasms. Plan: He remains on observation/expectant management for the myeloma. His medications remain the same. I will check a testosterone level today and I will arrange for referral to a urologist as indicated. He will be scheduled for a follow-up visit in 3 months. Signed By: Ajay Linares M.D. <<Signature on File>>
== END 2020-02-19 12:56 | disposition home or self-care (01) ==
LOC: ONCMED 12:56
PROVIDERS: PCP Physician Assistant Medical; Visit Provider Internal Medicine Medical Oncology
DX: C90.00 Multiple myeloma not having achieved remission (principal); N53.19 Other ejaculatory dysfunction; J44.9 Chronic obstructive pulmonary disease, unspecified; M19.90 Unspecified osteoarthritis, unspecified site; F43.10 Post-traumatic stress disorder, unspecified; Y37.90XS Military operations, unspecified, sequela; Z87.11 Personal history of peptic ulcer disease; Z77.098 Contact with and (suspected) exposure to other hazardous, chiefly nonmedicinal, chemicals
CPT/HCPCS: 99214

== ENCOUNTER 2020-07-15 08:57 | Outpatient (CLI) | payer MEDICARE, OTHER, SELFPAY ==
--- NOTE | 2020-07-15 10:45 | ONC FU_ITS ---
Dr. Linares Patient Follow-Up Note Patient: Sai Esqueda Unit #: [id number]: [id number] Dicatated By: Ajay Linares M.D.Date of Visit:Jul 15, 2020 Onc Med Follow-up/Prog Note Chief Complaint: Myeloma. History of Present Illness: This is a 75 year-old man with IGA myeloma. I had been following him for a low-level IgA kappa monoclonal gammopathy, initially discovered on protein electrophoresis in March of 2008. His previous evaluation, which included bone marrow aspiration/biopsy, had not shown any evidence of myeloma. However, on a followup electrophoresis study in January 2012, the kappa light chain was mildly elevated, and the kappa/lambda ratio was significantly elevated at 26.5. In addition, his IgA level was significantly elevated at 1700 mg/dL. Repeat bone marrow aspiration/biopsy on 01/25/2012 showed increased cellularity at 80% with plasma cells estimated at 14% of the differential. The plasma cells also showed moderate atypical features, including some with binucleation. The FISH panel for myeloma was abnormal, showing 3 copies of the CKS 1B locus at 1q 21 in 65% of the cells, 3 copies of ASS1 locus at 9q34 in 82.5% of the cells, 3 copies of the CCND1 locus at 11q13 in 80.5% of the cells, and 3 copies of the PML locus at 15q22 an 88.5% of cells. He had further staging with PET/CT which showed no evidence of lytic bone involvement. Based on the bone marrow aspiration/biopsy findings, he did appear to have multiple myeloma. His staging evaluation did not show any definite indication for treatment. However, he was increasingly symptomatic in terms of his extreme fatigue, generalized pain, and other symptoms. He was pretty much insistent on starting some form of treatment, and ultimately I did agree to give him a trial of therapy with Velcade/dexamethasone. He began his first cycle in March 2012. Treatment was stopped after the first week (second dose of Velcade) due to multiple side effects. As yet, he has not had any further treatment. He did have a second opinion evaluation at [facility] in October 2012. 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 He has had chronic complaints of profound fatigue and generalized pain. I have not been able to determine a specific cause it. It has been a long-standing problem, and he has attributed it to having had a significant exposure to agent orange during service in [place]. He does have posttraumatic stress disorder. In October of 2011 he was found to have multiple pulmonary emboli by CT pulmonary angiogram. He was anticoagulated initially with Lovenox and subsequently with warfarin, but he had poor tolerance for multiple anticoagulants, including warfarin, Pradaxa, and Xarelto. He has since then just remained on prophylaxis with aspirin, but with no further thromboembolism. In November 2014 he sustained a traumatic fracture of his right humerus. This apparently was a through and through but minimally displaced fracture of the mid humerus. He was seen by an orthopedic surgeon in [place]. There was no indication for surgery, and the fracture was managed conservatively with immobilization. A follow-up x-ray did show evidence of healing. He has continued observation/expectant management for the myeloma, thus far with no obvious progression. His medical illnesses, in addition to IgA myeloma, include COPD, peptic ulcer disease, and degenerative arthritis. He had an episode of pulmonary embolism in 2011. He has posttraumatic stress disorder, and he reports having had significant chemical exposure to agent orange during the [place]. He has chronic fatigue and chronic pain. He has a history of smoking 1 pack of cigarettes daily for approximately 25 years. He quit approximately 1984. He has had some alcohol use in the past, but never heavy. INTERIM HISTORY: A skeletal survey done through the [facility] on 10/19/2018 reported an ill-defined lesion involving the midshaft of the right humerus with some expansion of the cortex and with the appearance of an expansile lesion. No other definite bone lesion was identified. There were degenerative changes noted to involve the spine, sacroiliac joints, shoulders, hips, knees, feet, wrists, and hands. He was seen for a scheduled visit on 11/21/2018. At that time he reported new pain in his upper back on the right side and in his lower back/left hip area. With the findings reported on the skeletal survey and with his having new bone pain, I had recommended a restaging PET/CT. That study was completed on 11/25/2018. It showed no findings to indicate osseous metastatic disease. However, compared to the prior study from December 2017, there was development of hypermetabolic lymph nodes in the subcarinal region, right hilum, and bilateral perihilar regions, suspicious for lymphoma. The largest was a right hilar node measuring 1.4 cm with SUV 7.7. As the adenopathy did not appear to correlate with his symptoms, I had recommended close observation/expectant management. Further evaluation with CT scans of the chest, abdomen, and pelvis on 03/09/2019 showed slightly prominent pretracheal and hilar lymph nodes, unchanged compared to the PET/CT from November 2018. The largest lymph nodes were noted to measure 8 to 9 mm. There were moderate chronic emphysematous changes with small micronodular infiltrates in the right middle lobe, right upper lobe, and anterior segment of the left upper lobe, felt to be most likely inflammatory/infectious. There was no adenopathy in the abdomen/pelvis. The prostate was noted to be enlarged measuring 5.6 x 4.1 x 4.3 cm. PSA was just slightly above normal range at 4.24 ng/mL. He was seen for a follow-up visit in May 2019. At that time he was having fever and symptoms of respiratory infection, for which he was given antibiotic therapy with azithromycin. There was no change in the monoclonal protein or in the free light chain studies. He continued on observation/expectant management for the myeloma, as there appeared to be no indication for treatment. He is seen for a scheduled visit. He says that he has been feeling okay other than for the past 6 to 7 months his stomach has been killing him. He has pain in the mid abdominal area which typically wakes him up at night, around 3 or 4 AM. It does not bother him particularly during the daytime. Eating does seem to make it worse, though does not really matter what he eats. He has chronic constipation, but his bowel function also does not seem to affect it. He does have some nausea with it. He has not been having acid reflux symptoms. He has been taking his pantoprazole daily. He does he may get some relief taking ondansetron. His energy is about the same. He has chronic fatigue, but he is able to do light work. ECOG score is 1. He has a good appetite. He had some fever with his COVID-19 vaccination, but none since then. He does not have night sweating. He has sinus drainage and he has sore mouth and sore throat. He has some cough, which is chronic. He also has shortness of breath, but that is unchanged. He does not complain of chest pain. Bladder function has been good. He has musculoskeletal pain all the time, mainly in the back and lower extremities. He says it is an 8-10 all the time. He has tried to cut down on his pain medication. He does not complain of headache or dizziness. He has numbness/tingling in his legs and feet. He has PTSD with chronic anxiety. Medications: B-6 1 (500 mg) Tablet Oral daily, Cholecalciferol 1 (5000 Units) Capsule Oral daily, Magnesium Capsule Oral daily, OxyCODONE HCl 1 (10 mg) Tablet Oral four times a day PRN, Pantoprazole Sodium 1 (40 mg) Tablet, enteric coated Oral b.i.d., Spiriva HandiHaler Capsule Inhalation daily, Trelegy Ellipta 1 (100-62.5-25 mcg/inh) Aerosol Powder, Breath Activated Inhalation q 6 hours, Xanax 1 (0.5 mg) Tablet Oral t.i.d., Zofran 1 (8 mg) Tablet Oral b.i.d. Allergies: antiinflammatory drugs, Aspirin, Carafate, Codeine Sulfate, Pradaxa, and Prednisone. Vital Signs: Performed on Jul 15, 2020 08:54 Height - 70.00 in Weight - 186 lbs (LOW) BSA - 2.02 sq.m BMI - 26.69 Temperature - 97.2 F (LOW) Pulse - 71 /min Respiration - 16 /min BP - 130/70 mm(hg) O2 Sat - 99 % Pain - 8 Physical Examination: Constitutional - He does not appear acutely ill, Eyes - Sclerae nonicteric. Conjunctivae clear, ENMT - No lesions noted in the oral cavity, Hematologic/Lymphatic - No cervical, clavicular, or axillary adenopathy, Respiratory - Lungs are clear with diminished air movement bilaterally, Cardiovascular - Heart rhythm is regular. There is no murmur, gallop, or rub noted, Abdomen - Mildly distended but soft. There is mild tenderness in the mid abdominal area. Liver and spleen are not enlarged. There is no abdominal mass or ascites noted. Bowel sounds are normal. There is no inguinal adenopathy noted, Extremities - No edema, Neurologic - No focal neurologic deficits noted. Lab/Imaging: Test performed on May 13, 2020 10:56 Glucose 125 mg/dL Protein, Total 7.4 g/dL Albumin, SPE 3.84 g/dL BUN 14 mg/dL Creatinine 1.37 mg/dL Cr Clearance (Est) 54.00 mL/min Sodium 138 mmol/L Potassium 4.5 mmol/L Chloride 103 mmol/L CO2 27 mmol/L Calcium 9.2 mg/dL Albumin 3.8 g/dL Bilirubin, Total 0.2 mg/dL Alkaline Phosphatase 115 IU/L AST (SGOT) 20 IU/L ALT (SGPT) 20 IU/L WBC 6.1 10^9/L RBC 4.60 10^12/L HGB 14.8 g/dL HCT 44.7 % MCV 97.2 fl MCH 32.2 pg MCHC 33.1 g/dL RDW 13.7 % Platelet Count 256 10^9/L MPV 9.1 fL Neutrophils (Gran) 3.77 10^9/L Lymphocytes 1.83 10^9/L Monocytes 0.42 10^9/L Eosinophils 0.03 10^9/L Basophils 0.02 10^9/L Manual Lymphocytes 30 % Manual Monocytes 7 % Manual Eosinophils 1 % Manual Basophils 0 % [place] / Lambda Ratio 28.23 Absolute Value Lambda Light Chain 1.35 [place] Light Chain 38.11 Fwmnm-1-gfdpotiv 0.26 g/dL Epzab-4-vvmnybaj 0.77 g/dL Beta Globulin 2.38 g/dL Gamma Globulin 0.11 g/dL SPE Interpretation No significant change in monoclonal proteinemia since prior study Problem List: 1. IgA kappa monoclonal gammopathy. His previous evaluation was consistent with smoldering myeloma. 2. He had an episode of pulmonary embolism in October 2011. He received suboptimal treatment due to intolerance to multiple anticoagulants. He has since then just remained on aspirin prophylaxis with no further thromboembolism. 3. He has COPD with chronic shortness of breath and cough. 4. He has chronic pain which appears to be due primarily to degenerative arthritis/degenerative disease of the spine. 5. He has symptoms of peripheral neuropathy. 6. He has post traumatic stress disorder related to service in [place]. He had significant agent orange exposure during that time. He has associated chronic anxiety. 7. In July 2016 he was found to have a gastric ulcer by EGD, though he had been taking both Protonix and Tagamet. 8. A restaging PET/CT on 11/25/2018 showed new FDG avid adenopathy in the subcarinal region, right hilum, and bilateral perihilar regions which was felt to be suspicious for lymphoma. Problems Addressed with this Encounter and Plan: 1. Patient with IgA kappa monoclonal gammopathy. His previous evaluation was consistent with smoldering myeloma. He has not had any definite indication for treatment. Because of his multiple complaints, he did have a brief trial of therapy with Velcade/Dexamethasone beginning in March 2012. He tolerated it poorly, and he was then followed on expectant management. Thus far during follow-up there has been no evidence of symptomatic myeloma. He will have repeat CBC, protein electrophoresis, serum free light chain assay, and sed rate today. In the absence of any evidence of progression of the myeloma, he will remain on observation/expectant management. He will be scheduled for a follow-up visit in 3 months. 2. He comes in now with 6 to 7-month history of pain in the mid abdominal area which typically wakes him up around 3 or 4 AM. The cause is uncertain. His laboratory studies today will include CMP and a serum lipase. He will be scheduled for CT of the abdomen/pelvis. He will have further evaluation as indicated. 3. A restaging PET/CT on 11/25/2018 showed new FDG avid adenopathy in the subcarinal region, right hilum, and bilateral perihilar regions which was felt to be suspicious for lymphoma. The largest node was in the right hilum measuring 1.4 cm with SUV 7.7. As his symptoms did not appear to correlate with the PET/CT findings, I had initially recommended observation/expectant management. His repeat CT scans of the chest, abdomen, and pelvis on 03/09/2019 showed no progression of the lymphadenopathy in the mediastinum. There were inflammatory type changes in both lungs. There was no other lymphadenopathy noted and there were no lytic bone lesions reported. He continued expectant management. He will be scheduled now for repeat chest CT. He will have further evaluation as indicated. 4. He has had multiple chronic complaints which appear to be unrelated to the myeloma. The most significant have been extreme weakness/fatigue, chronic pain, and difficulty breathing. The cause has not been entirely certain, but at least some component of the symptoms are likely related to underlying degenerative arthritis/degenerative disease of the spine and to underlying COPD. He also has symptoms of peripheral neuropathy. He continues symptomatic management. 5. He has post traumatic stress disorder related to service in [place]. He had significant agent orange exposure during that time. He has associated chronic anxiety. He manages it adequately with alprazolam. 6. He had an episode of pulmonary embolism in October 2011. He received suboptimal treatment due to intolerance to multiple anticoagulants. He has since then just remained on aspirin prophylaxis with no further thromboembolism. Signed By: Ajay Linares M.D. <<Signature on File>>
== END 2020-07-15 08:58 | disposition home or self-care (01) ==
LOC: ONCMED 08:58
PROVIDERS: PCP Physician Assistant Medical; Visit Provider Internal Medicine Medical Oncology
DX: C90.00 Multiple myeloma not having achieved remission (principal); D47.2 Monoclonal gammopathy; K59.09 Other constipation; E86.0 Dehydration; F43.12 Post-traumatic stress disorder, chronic; G89.4 Chronic pain syndrome; R53.82 Chronic fatigue, unspecified; I25.2 Old myocardial infarction; J44.9 Chronic obstructive pulmonary disease, unspecified; G62.9 Polyneuropathy, unspecified; Z86.711 Personal history of pulmonary embolism; Z79.899 Other long term (current) drug therapy; Z77.098 Contact with and (suspected) exposure to other hazardous, chiefly nonmedicinal, chemicals
CPT/HCPCS: 99214

== ENCOUNTER 2020-10-21 12:00 | Outpatient (CLI) | payer MEDICARE, OTHER, SELFPAY ==
--- NOTE | 2020-11-03 07:37 | ONC FU_ITS ---
Dr. Linares Patient Follow-Up Note Patient: Sai Esqueda Unit #: [id number]: 1945 Dicatated By: Ajay Linares M.D.Date of Visit:Oct 21, 2020 Onc Med Follow-up/Prog Note Chief Complaint: Myeloma. History of Present Illness: This is a 75 year-old man with IGA myeloma. I had been following him for a low-level IgA kappa monoclonal gammopathy, initially discovered on protein electrophoresis in March of 2008. His previous evaluation, which included bone marrow aspiration/biopsy, had not shown any evidence of myeloma. However, on a followup electrophoresis study in January 2012, the kappa light chain was mildly elevated, and the kappa/lambda ratio was significantly elevated at 26.5. In addition, his IgA level was significantly elevated at 1700 mg/dL. Repeat bone marrow aspiration/biopsy on 01/25/2012 showed increased cellularity at 80% with plasma cells estimated at 14% of the differential. The plasma cells also showed moderate atypical features, including some with binucleation. The FISH panel for myeloma was abnormal, showing 3 copies of the CKS 1B locus at 1q 21 in 65% of the cells, 3 copies of ASS1 locus at 9q34 in 82.5% of the cells, 3 copies of the CCND1 locus at 11q13 in 80.5% of the cells, and 3 copies of the PML locus at 15q22 an 88.5% of cells. He had further staging with PET/CT which showed no evidence of lytic bone involvement. Based on the bone marrow aspiration/biopsy findings, he did appear to have multiple myeloma. His staging evaluation did not show any definite indication for treatment. However, he was increasingly symptomatic in terms of his extreme fatigue, generalized pain, and other symptoms. He was pretty much insistent on starting some form of treatment, and ultimately I did agree to give him a trial of therapy with Velcade/dexamethasone. He began his first cycle in March 2012. Treatment was stopped after the first week (second dose of Velcade) due to multiple side effects. As yet, he has not had any further treatment. He did have a second opinion evaluation at [facility] in October 2012. 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 He has had chronic complaints of profound fatigue and generalized pain. I have not been able to determine a specific cause it. It has been a long-standing problem, and he has attributed it to having had a significant exposure to agent orange during service in [place]. He does have posttraumatic stress disorder. In October of 2011 he was found to have multiple pulmonary emboli by CT pulmonary angiogram. He was anticoagulated initially with Lovenox and subsequently with warfarin, but he had poor tolerance for multiple anticoagulants, including warfarin, Pradaxa, and Xarelto. He has since then just remained on prophylaxis with aspirin, but with no further thromboembolism. In November 2014 he sustained a traumatic fracture of his right humerus. This apparently was a through and through but minimally displaced fracture of the mid humerus. He was seen by an orthopedic surgeon in [place]. There was no indication for surgery, and the fracture was managed conservatively with immobilization. A follow-up x-ray did show evidence of healing. He has continued observation/expectant management for the myeloma, thus far with no obvious progression. His medical illnesses, in addition to IgA myeloma, include COPD, peptic ulcer disease, and degenerative arthritis. He had an episode of pulmonary embolism in 2011. He has posttraumatic stress disorder, and he reports having had significant chemical exposure to agent orange during the [place]. He has chronic fatigue and chronic pain. He has a history of smoking 1 pack of cigarettes daily for approximately 25 years. He quit approximately 1984. He has had some alcohol use in the past, but never heavy. INTERIM HISTORY: A skeletal survey done through the [place] on 10/19/2018 reported an ill-defined lesion involving the midshaft of the right humerus with some expansion of the cortex and with the appearance of an expansile lesion. No other definite bone lesion was identified. There were degenerative changes noted to involve the spine, sacroiliac joints, shoulders, hips, knees, feet, wrists, and hands. He was seen for a scheduled visit on 11/21/2018. At that time he reported new pain in his upper back on the right side and in his lower back/left hip area. With the findings reported on the skeletal survey and with his having new bone pain, I had recommended a restaging PET/CT. That study was completed on 11/25/2018. It showed no findings to indicate osseous metastatic disease. However, compared to the prior study from December 2017, there was development of hypermetabolic lymph nodes in the subcarinal region, right hilum, and bilateral perihilar regions, suspicious for lymphoma. The largest was a right hilar node measuring 1.4 cm with SUV 7.7. As the adenopathy did not appear to correlate with his symptoms, I had recommended close observation/expectant management. Further evaluation with CT scans of the chest, abdomen, and pelvis on 03/09/2019 showed slightly prominent pretracheal and hilar lymph nodes, unchanged compared to the PET/CT from November 2018. The largest lymph nodes were noted to measure 8 to 9 mm. There were moderate chronic emphysematous changes with small micronodular infiltrates in the right middle lobe, right upper lobe, and anterior segment of the left upper lobe, felt to be most likely inflammatory/infectious. There was no adenopathy in the abdomen/pelvis. The prostate was noted to be enlarged measuring 5.6 x 4.1 x 4.3 cm. PSA was just slightly above normal range at 4.24 ng/mL. He was seen for a follow-up visit in May 2019. At that time he was having fever and symptoms of respiratory infection, for which he was given antibiotic therapy with azithromycin. There was no change in the monoclonal protein or in the free light chain studies. He continued on observation/expectant management for the myeloma, as there appeared to be no indication for treatment. He is seen for a scheduled visit. He feels like he is getting a little worse, as he has more aches and pains and he feels like his bones are hurting. He has very limited activity and he is now doing just minimal housework. ECOG score is 2. He has good appetite. He has not had fever. He has sweating all the time during the day and he also has some sweating at night. He says his sinus drainage is real bad. His mouth is still occasionally sore. He has shortness of breath and cough. He is now using Trelegy. He does not complain of chest pain. He has nausea, mainly at night, and he has acid reflux. He has ongoing problems with constipation, currently managed with Movantik and Dulcolax. Bladder function has been okay. He does not complain of headache. He occasionally has dizziness. He has numbness/tingling in his hands and feet and he also complains that the bottoms of his feet get really hot. He has easy bruising. He complains that his nervous are terrible. Medications: B-6 1 (500 mg) Tablet Oral daily, Cholecalciferol 1 (5000 Units) Capsule Oral daily, Magnesium Capsule Oral daily, OxyCODONE HCl 1 (10 mg) Tablet Oral four times a day PRN, Pantoprazole Sodium 1 (40 mg) Tablet, enteric coated Oral b.i.d., Spiriva HandiHaler Capsule Inhalation daily, Trelegy Ellipta 1 (100-62.5-25 mcg/inh) Aerosol Powder, Breath Activated Inhalation q 6 hours, Xanax 1 (0.5 mg) Tablet Oral t.i.d., Zofran 1 (8 mg) Tablet Oral b.i.d. Allergies: antiinflammatory drugs, Aspirin, Carafate, Codeine Sulfate, Pradaxa, and Prednisone. Vital Signs: Performed on Oct 21, 2020 11:52 Height - 70.00 in Weight - 184 lbs (LOW) BSA - 2.01 sq.m BMI - 26.40 Temperature - 99 F (HIGH) Pulse - 84 /min Respiration - 18 /min BP - 120/70 mm(hg) O2 Sat - 96 % Pain - 8 Physical Examination: Constitutional - He does not appear acutely ill, Eyes - Sclerae nonicteric. Conjunctivae clear, ENMT - No lesions noted in the oral cavity, Hematologic/Lymphatic - No cervical, clavicular, or axillary adenopathy, Respiratory - Lungs are clear with diminished air movement bilaterally, Cardiovascular - Heart rhythm is regular. There is no murmur, gallop, or rub noted, Abdomen - Soft. There is mild tenderness in the upper abdomen. Liver and spleen are not enlarged. There is no abdominal mass or ascites noted. There is no inguinal adenopathy, Extremities - No edema, Neurologic - No focal neurologic deficits noted. Lab/Imaging: Test performed on Oct 14, 2020 11:00 Glucose 111 mg/dL BUN 13 mg/dL Creatinine 1.15 mg/dL Cr Clearance (Est) 64.33 mL/min Sodium 137 mmol/L Potassium 4.3 mmol/L Chloride 102 mmol/L CO2 26 mmol/L Calcium 8.6 mg/dL Protein, Total 7.6 g/dL Albumin 3.9 g/dL Bilirubin, Total 0.3 mg/dL Alkaline Phosphatase 104 IU/L AST (SGOT) 21 IU/L ALT (SGPT) 19 IU/L Sed Rate 12 mm/hr WBC 5.5 10^9/L RBC 4.52 10^12/L HGB 14.6 g/dL HCT 43.6 % MCV 96.5 fl MCH 32.3 pg MCHC 33.5 g/dL RDW 12.9 % Platelet Count 208 10^9/L MPV 9.5 fL Neutrophils (Gran) 3.81 10^9/L Lymphocytes 1.375 10^9/L Monocytes 0.275 10^9/L Eosinophils 0 10^9/L Basophils 0 10^9/L Problem List: 1. IgA kappa monoclonal gammopathy. His previous evaluation was consistent with smoldering myeloma. 2. He had an episode of pulmonary embolism in October 2011. He received suboptimal treatment due to intolerance to multiple anticoagulants. He has since then just remained on aspirin prophylaxis with no further thromboembolism. 3. He has COPD with chronic shortness of breath and cough. 4. He has chronic pain which appears to be due primarily to degenerative arthritis/degenerative disease of the spine. 5. He has symptoms of peripheral neuropathy. 6. He has post traumatic stress disorder related to service in [place]. He had significant agent orange exposure during that time. He has associated chronic anxiety. 7. In July 2016 he was found to have a gastric ulcer by EGD, though he had been taking both Protonix and Tagamet. 8. A restaging PET/CT on 11/25/2018 showed new FDG avid adenopathy in the subcarinal region, right hilum, and bilateral perihilar regions which was felt to be suspicious for lymphoma. Problems Addressed with this Encounter and Plan: 1. Patient with IgA kappa monoclonal gammopathy. His previous evaluation was consistent with smoldering myeloma. He has not had any definite indication for treatment. Because of his multiple complaints, he did have a brief trial of therapy with Velcade/Dexamethasone beginning in March 2012. He tolerated it poorly, and he was then followed on expectant management. During follow-up he has continued to have numerous complaints and he has fairly marginal performance status. There has been no evidence, though, of symptomatic progression of the myeloma. As such, he continues on expectant management. He will be scheduled for a follow-up visit in 3 months. 2. He had an episode of pulmonary embolism in October 2011. He received suboptimal treatment due to intolerance to multiple anticoagulants. He has since then just remained on aspirin prophylaxis with no further thromboembolism. 3. A restaging PET/CT on 11/25/2018 showed new FDG avid adenopathy in the subcarinal region, right hilum, and bilateral perihilar regions which was felt to be suspicious for lymphoma. The largest node was in the right hilum measuring 1.4 cm with SUV 7.7. As his symptoms did not appear to correlate with the PET/CT findings, I had initially recommended observation/expectant management. His repeat CT scans of the chest, abdomen, and pelvis on 03/09/2019 showed no progression of the lymphadenopathy in the mediastinum. There were inflammatory type changes in both lungs. There was no other lymphadenopathy noted and there were no lytic bone lesions reported. It is being followed expectantly. 4. He has had multiple chronic complaints which appear to be unrelated to the myeloma. The most significant have been extreme weakness/fatigue, chronic pain, and difficulty breathing. The cause has not been entirely certain, but at least some component of the symptoms are likely related to underlying degenerative arthritis/degenerative disease of the spine and to underlying COPD. He also has symptoms of peripheral neuropathy. He continues symptomatic management. 5. He has post traumatic stress disorder related to service in [place]. He had significant agent orange exposure during that time. He has associated chronic anxiety. He also reports having increasing difficulty sleeping. He has been managing the anxiety with alprazolam. He is now reporting increasing problems associated with insomnia. Signed By: Ajay Linares M.D. <<Signature on File>>
== END 2020-10-21 12:01 | disposition home or self-care (01) ==
LOC: ONCMED 10-22 07:03
PROVIDERS: PCP Physician Assistant Medical; Visit Provider Internal Medicine Medical Oncology
DX: D47.2 Monoclonal gammopathy (principal); Z79.899 Other long term (current) drug therapy; J44.9 Chronic obstructive pulmonary disease, unspecified; Z86.711 Personal history of pulmonary embolism; M47.9 Spondylosis, unspecified; G62.9 Polyneuropathy, unspecified; K25.9 Gastric ulcer, unspecified as acute or chronic, without hemorrhage or perforation; F41.9 Anxiety disorder, unspecified
CPT/HCPCS: 99214

== ENCOUNTER → 2021-01-08 08:51 | Outpatient (BNVA) | payer MEDICARE, OTHER, SELFPAY | PROVIDERS: PCP Physician Assistant Medical; Visit Provider Internal Medicine Medical Oncology | DX: C90.00 Multiple myeloma not having achieved remission (principal) | CPT/HCPCS: 80053; 80061; 83883; 84155; 84165; 85025; 85651 ==

== ENCOUNTER 2021-01-19 13:26 | Outpatient (CLI) | payer OTHER, SELFPAY ==
--- NOTE | 2021-01-20 06:56 | ONC FU_ITS ---
Dr. Linares Patient Follow-Up Note Patient: Sai Esqueda Unit #: [id number]: 1945 Dicatated By: Ajay Linares M.D.Date of Visit:Jan 19, 2021 Onc Med Follow-up/Prog Note Chief Complaint: Myeloma. History of Present Illness: This is a 75 year-old man with IGA myeloma. I had been following him for a low-level IgA kappa monoclonal gammopathy, initially discovered on protein electrophoresis in March of 2008. His previous evaluation, which included bone marrow aspiration/biopsy, had not shown any evidence of myeloma. However, on a followup electrophoresis study in January 2012, the kappa light chain was mildly elevated, and the kappa/lambda ratio was significantly elevated at 26.5. In addition, his IgA level was significantly elevated at 1700 mg/dL. Repeat bone marrow aspiration/biopsy on 01/25/2012 showed increased cellularity at 80% with plasma cells estimated at 14% of the differential. The plasma cells also showed moderate atypical features, including some with binucleation. The FISH panel for myeloma was abnormal, showing 3 copies of the CKS 1B locus at 1q 21 in 65% of the cells, 3 copies of ASS1 locus at 9q34 in 82.5% of the cells, 3 copies of the CCND1 locus at 11q13 in 80.5% of the cells, and 3 copies of the PML locus at 15q22 an 88.5% of cells. He had further staging with PET/CT which showed no evidence of lytic bone involvement. Based on the bone marrow aspiration/biopsy findings, he did appear to have multiple myeloma. His staging evaluation did not show any definite indication for treatment. However, he was increasingly symptomatic in terms of his extreme fatigue, generalized pain, and other symptoms. He was pretty much insistent on starting some form of treatment, and ultimately I did agree to give him a trial of therapy with Velcade/dexamethasone. He began his first cycle in March 2012. Treatment was stopped after the first week (second dose of Velcade) due to multiple side effects. As yet, he has not had any further treatment. He did have a second opinion evaluation at [facility] in October 2012. 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 He has had chronic complaints of profound fatigue and generalized pain. I have not been able to determine a specific cause it. It has been a long-standing problem, and he has attributed it to having had a significant exposure to agent orange during service in [place]. He does have posttraumatic stress disorder. In October of 2011 he was found to have multiple pulmonary emboli by CT pulmonary angiogram. He was anticoagulated initially with Lovenox and subsequently with warfarin, but he had poor tolerance for multiple anticoagulants, including warfarin, Pradaxa, and Xarelto. He has since then just remained on prophylaxis with aspirin, but with no further thromboembolism. In November 2014 he sustained a traumatic fracture of his right humerus. This apparently was a through and through but minimally displaced fracture of the mid humerus. He was seen by an orthopedic surgeon in [place]. There was no indication for surgery, and the fracture was managed conservatively with immobilization. A follow-up x-ray did show evidence of healing. He has continued observation/expectant management for the myeloma, thus far with no obvious progression. His medical illnesses, in addition to IgA myeloma, include COPD, peptic ulcer disease, and degenerative arthritis. He had an episode of pulmonary embolism in 2011. He has posttraumatic stress disorder, and he reports having had significant chemical exposure to agent orange during the [place]. He has chronic fatigue and chronic pain. He has a history of smoking 1 pack of cigarettes daily for approximately 25 years. He quit approximately 1984. He has had some alcohol use in the past, but never heavy. INTERIM HISTORY: A skeletal survey done through the [facility] on 10/19/2018 reported an ill-defined lesion involving the midshaft of the right humerus with some expansion of the cortex and with the appearance of an expansile lesion. No other definite bone lesion was identified. There were degenerative changes noted to involve the spine, sacroiliac joints, shoulders, hips, knees, feet, wrists, and hands. He was seen for a scheduled visit on 11/21/2018. At that time he reported new pain in his upper back on the right side and in his lower back/left hip area. With the findings reported on the skeletal survey and with his having new bone pain, I had recommended a restaging PET/CT. That study was completed on 11/25/2018. It showed no findings to indicate osseous metastatic disease. However, compared to the prior study from December 2017, there was development of hypermetabolic lymph nodes in the subcarinal region, right hilum, and bilateral perihilar regions, suspicious for lymphoma. The largest was a right hilar node measuring 1.4 cm with SUV 7.7. As the adenopathy did not appear to correlate with his symptoms, I had recommended close observation/expectant management. Further evaluation with CT scans of the chest, abdomen, and pelvis on 03/09/2019 showed slightly prominent pretracheal and hilar lymph nodes, unchanged compared to the PET/CT from November 2018. The largest lymph nodes were noted to measure 8 to 9 mm. There were moderate chronic emphysematous changes with small micronodular infiltrates in the right middle lobe, right upper lobe, and anterior segment of the left upper lobe, felt to be most likely inflammatory/infectious. There was no adenopathy in the abdomen/pelvis. The prostate was noted to be enlarged measuring 5.6 x 4.1 x 4.3 cm. PSA was just slightly above normal range at 4.24 ng/mL. He was seen for a follow-up visit in May 2019. At that time he was having fever and symptoms of respiratory infection, for which he was given antibiotic therapy with azithromycin. There was no change in the monoclonal protein or in the free light chain studies. He continued on observation/expectant management for the myeloma, as there appeared to be no indication for treatment. His repeat chest CT on 07/17/2020 showed no evidence of pulmonary infiltrate or suspicious pulmonary nodules and there were no pathologically enlarged mediastinal, hilar, or axillary lymph nodes. There were no acute findings in the abdomen/pelvis. There were no suspicious osseous lesions noted. His laboratory studies in November 2020 did show an increase in his M protein and in his free kappa light chain, but he appeared stable clinically. He is seen for a scheduled visit. He complains that he is real tired and that he has severe fatigue. He complains of having a lot of pain in his joints and in his bones. He complains of having pain in his abdominal area and that he cannot get his stomach to work. He says he cannot hardly eat. He has been losing weight gradually. He has limited activity, but he is able to do a few chores. ECOG score is 1. He does not have fever or night sweats. He has real bad sinus drainage and he has some cough associated with it. He has chronic shortness of breath and he feels that his breathing is a little worse. He does not complain of chest pain. He has nausea all the time. He has ongoing problems with constipation. Bladder function remains adequate. He has headaches and he also complains of having dizziness. He has no focal neurologic symptoms, but he does complain of having nerve pain going down both legs. Medications: B-6 1 (500 mg) Tablet Oral daily, Cholecalciferol 1 (5000 Units) Capsule Oral daily, Magnesium Capsule Oral daily, OxyCODONE HCl 1 (10 mg) Tablet Oral four times a day PRN, Pantoprazole Sodium 1 (40 mg) Tablet, enteric coated Oral b.i.d., Spiriva HandiHaler Capsule Inhalation daily, Trelegy Ellipta 1 (100-62.5-25 mcg/inh) Aerosol Powder, Breath Activated Inhalation q 6 hours, Xanax 1 (0.5 mg) Tablet Oral t.i.d., Zofran 1 (8 mg) Tablet Oral b.i.d. Allergies: antiinflammatory drugs, Aspirin, Carafate, Codeine Sulfate, Pradaxa, and Prednisone. Vital Signs: Performed on Jan 19, 2021 14:03 Height - 70.00 in Weight - 181 lbs (LOW) BSA - 2.00 sq.m BMI - 25.97 Temperature - 98.4 F Pulse - 76 /min Respiration - 18 /min BP - 115/70 mm(hg) O2 Sat - 97 % Pain - 8 Fatigue - 8 Physical Examination: Constitutional - He appears somewhat weak generally, Eyes - Sclerae nonicteric. Conjunctivae clear, ENMT - No lesions noted in the oral cavity, Hematologic/Lymphatic - No cervical, clavicular, or axillary adenopathy, Respiratory - Lungs are clear with diminished air movement bilaterally, Cardiovascular - Heart rhythm is regular. There is no murmur, gallop, or rub noted, Abdomen - Soft. Liver and spleen are not enlarged. There is no abdominal mass or ascites noted. There is no inguinal adenopathy, Extremities - There is some mild swelling of the left knee joint. There is otherwise no edema, Neurologic - No focal neurologic deficits noted. Lab/Imaging: CBC shows hemoglobin 14.5 g, white blood cell count 5400, and platelet count 229,000. Comprehensive metabolic profile shows normal renal function with BUN 14 and creatinine 0.9 mg/dL. Bilirubin and liver enzymes are normal. The serum protein electrophoresis shows stable M protein quantitating at 1.7 g/dL. The serum free light chain assay shows elevated free kappa light chain at 90.9 mg/L and elevated kappa/lambda ratio at 28.41, both also stable. Problem List: 1. IgA kappa monoclonal gammopathy. His previous evaluation was consistent with smoldering myeloma. 2. He had an episode of pulmonary embolism in October 2011. He received suboptimal treatment due to intolerance to multiple anticoagulants. He has since then just remained on aspirin prophylaxis with no further thromboembolism. 3. He has COPD with chronic shortness of breath and cough. 4. He has chronic pain which appears to be due primarily to degenerative arthritis/degenerative disease of the spine. 5. He has symptoms of peripheral neuropathy. 6. He has post traumatic stress disorder related to service in [place]. He had significant agent orange exposure during that time. He has associated chronic anxiety. 7. In July 2016 he was found to have a gastric ulcer by EGD, though he had been taking both Protonix and Tagamet. 8. A restaging PET/CT on 11/25/2018 showed new FDG avid adenopathy in the subcarinal region, right hilum, and bilateral perihilar regions which was felt to be suspicious for lymphoma. Problems Addressed with this Encounter and Plan: 1. Patient with IgA kappa monoclonal gammopathy. His previous evaluation was consistent with smoldering myeloma. By objective assessment there was no definite indication for treatment. Because of his multiple complaints, he did have a brief trial of therapy with Velcade/Dexamethasone beginning in March 2012. He tolerated it poorly, and he was then followed on expectant management. During follow-up he has continued to have numerous complaints and he has fairly marginal performance status. There has been no evidence, though, of symptomatic progression of the myeloma. In November 2020 there was an increase in his M protein and in his free kappa light chain. At that point he appeared stable clinically and thus far there has been no further increase in his laboratory parameters. As such, he continues on expectant management. He will be scheduled for a follow-up visit in 3 months. 2. He had an episode of pulmonary embolism in October 2011. He received suboptimal treatment due to intolerance to multiple anticoagulants. He has since then just remained on aspirin prophylaxis with no further thromboembolism. 3. A restaging PET/CT on 11/25/2018 showed new FDG avid adenopathy in the subcarinal region, right hilum, and bilateral perihilar regions which was felt to be suspicious for lymphoma. The largest node was in the right hilum measuring 1.4 cm with SUV 7.7. As his symptoms did not appear to correlate with the PET/CT findings, I had initially recommended observation/expectant management. His repeat CT scans of the chest, abdomen, and pelvis on 03/09/2019 showed no progression of the lymphadenopathy in the mediastinum. There were inflammatory type changes in both lungs. There was no other lymphadenopathy noted and there were no lytic bone lesions reported. It is being followed expectantly. 4. He has had multiple chronic complaints which appear to be unrelated to the myeloma. The most significant have been extreme weakness/fatigue, chronic pain, and difficulty breathing. The cause has not been entirely certain, but at least some component of the symptoms are likely related to underlying degenerative arthritis/degenerative disease of the spine and to underlying COPD. He also has symptoms of peripheral neuropathy. He continues symptomatic management. 5. He has post traumatic stress disorder related to service in [place]. He had significant agent orange exposure during that time. He has associated chronic anxiety. He also reports having increasing difficulty sleeping. He has been managing the anxiety with alprazolam. Signed By: Ajay Linares M.D. <<Signature on File>>
== END 2021-01-19 13:27 | disposition home or self-care (01) ==
PROVIDERS: Visit Provider Internal Medicine Medical Oncology
DX: C90.01 Multiple myeloma in remission (principal); D47.2 Monoclonal gammopathy; J44.9 Chronic obstructive pulmonary disease, unspecified; M47.9 Spondylosis, unspecified; G62.9 Polyneuropathy, unspecified; F43.10 Post-traumatic stress disorder, unspecified; F41.9 Anxiety disorder, unspecified; Z86.711 Personal history of pulmonary embolism; Z79.82 Long term (current) use of aspirin; Z79.899 Other long term (current) drug therapy
CPT/HCPCS: 99214

== ENCOUNTER 2021-04-23 10:24 | Outpatient (CLI) | payer OTHER, SELFPAY ==
[2021-04-23 12:02] LABS: Basophils % 0.2 %; Eosinophils % 0.2 %; Hematocrit 43.5 % (42.0-52.0); Hemoglobin 14.2 g/dL (11.7-16.6); Lymphocytes # 1.6 10^3/uL (0.8-4.8); Lymphocytes % 27.5 %; Mean Corpuscular HGB Conc 32.6 g/dL (30.0-36.0); Mean Corpuscular Hemoglobin 31.2 pg (28.0-34.0); Mean Corpuscular Volume 95.6 fl (80-94); Mean Platelet Volume 9.7 fL (7.4-10.4); Monocytes # 0.3 10^3/uL (0.2-0.9); Monocytes % 5.2 %; Neutrophils # 3.85 10^3/uL (1.8-7.7); Neutrophils % 66.6 %; Nucleated Red Blood Cells % 0 %; Platelet Count 253 10^3/cmm (130-400); Red Blood Count 4.55 10^6/uL (4.1-5.3); Red Cell Distribution Width 13.1 % (12.1-15.1); White Blood Count 5.8 10^3/uL (4.0-10.0)
[2021-04-23 12:47] LABS: Alanine Aminotransferase 18 U/L (0-41); Albumin Level 4.1 g/dL (3.5-5.2); Alkaline Phosphatase 97 IU/L (40-130); Aspartate Amino Transferase 19 U/L (0-40); Blood Urea Nitrogen 11 mg/dL (8-23); Calcium 8.6 mg/dL (8.5-10.5); Carbon Dioxide 24 mmol/L (22-29); Globulin 3.6 g/dL (1.3-4.6); Glucose 94 mg/dL (65-115); Osmolality Calculated 287 mOsm/kg (285-295); Total Bilirubin 0.3 mg/dL (0.15-1.2); Total Protein 7.7 g/dL (6.6-8.7)
[2021-04-23 13:27] LABS: Immunoglobulin IGM 25 mg/dL (40-230)
[2021-04-23 13:30] LABS: Chloride 100 mmol/L (98-107); Sodium 139 mmol/L (136-145)
[2021-04-23 13:31] LABS: Anion Gap 19.5 (5-19); Potassium 4.5 mmol/L (3.5-5.1)
[2021-04-23 13:53] LABS: Immunoglobulin IGA 2491 mg/dL (70-400); Immunoglobulin IGG < 300 mg/dL (700-1600)
[2021-04-24 14:22] LABS: KAPPA LIGHT CHAIN, FREE, SERUM 101.6 mg/L (3.3-19.4); KAPPA/LAMBDA LIGHT CHAINS FREE 33.87 (0.26-1.65)
[2021-04-25 04:22] LABS: PROTEIN, TOTAL 7.9 g/dL (6.1-8.1)
--- NOTE | 2021-04-26 11:57 | ONC FU_ITS ---
Dr. Linares Patient Follow-Up Note Patient: Sai Esqueda Unit #: [id number]: [id number] Dicatated By: Ajay Linares M.D.Date of Visit:Apr 23, 2021 Onc Med Follow-up/Prog Note Chief Complaint: Myeloma. History of Present Illness: This is a 76 year-old man with IGA myeloma. I had been following him for a low-level IgA kappa monoclonal gammopathy, initially discovered on protein electrophoresis in March of 2008. His previous evaluation, which included bone marrow aspiration/biopsy, had not shown any evidence of myeloma. However, on a followup electrophoresis study in January 2012, the kappa light chain was mildly elevated, and the kappa/lambda ratio was significantly elevated at 26.5. In addition, his IgA level was significantly elevated at 1700 mg/dL. Repeat bone marrow aspiration/biopsy on 01/25/2012 showed increased cellularity at 80% with plasma cells estimated at 14% of the differential. The plasma cells also showed moderate atypical features, including some with binucleation. The FISH panel for myeloma was abnormal, showing 3 copies of the CKS 1B locus at 1q 21 in 65% of the cells, 3 copies of ASS1 locus at 9q34 in 82.5% of the cells, 3 copies of the CCND1 locus at 11q13 in 80.5% of the cells, and 3 copies of the PML locus at 15q22 an 88.5% of cells. He had further staging with PET/CT which showed no evidence of lytic bone involvement. Based on the bone marrow aspiration/biopsy findings, he did appear to have multiple myeloma. His staging evaluation did not show any definite indication for treatment. However, he was increasingly symptomatic in terms of his extreme fatigue, generalized pain, and other symptoms. He was pretty much insistent on starting some form of treatment, and ultimately I did agree to give him a trial of therapy with Velcade/dexamethasone. He began his first cycle in March 2012. Treatment was stopped after the first week (second dose of Velcade) due to multiple side effects. As yet, he has not had any further treatment. He did have a second opinion evaluation at [facility] in October 2012. 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 He has had chronic complaints of profound fatigue and generalized pain. I have not been able to determine a specific cause it. It has been a long-standing problem, and he has attributed it to having had a significant exposure to agent orange during service in [place]. He does have posttraumatic stress disorder. In October of 2011 he was found to have multiple pulmonary emboli by CT pulmonary angiogram. He was anticoagulated initially with Lovenox and subsequently with warfarin, but he had poor tolerance for multiple anticoagulants, including warfarin, Pradaxa, and Xarelto. He has since then just remained on prophylaxis with aspirin, but with no further thromboembolism. In November 2014 he sustained a traumatic fracture of his right humerus. This apparently was a through and through but minimally displaced fracture of the mid humerus. He was seen by an orthopedic surgeon in [place]. There was no indication for surgery, and the fracture was managed conservatively with immobilization. A follow-up x-ray did show evidence of healing. He has continued observation/expectant management for the myeloma, thus far with no obvious progression. His medical illnesses, in addition to IgA myeloma, include COPD, peptic ulcer disease, and degenerative arthritis. He had an episode of pulmonary embolism in 2011. He has posttraumatic stress disorder, and he reports having had significant chemical exposure to agent orange during the [place]. He has chronic fatigue and chronic pain. He has a history of smoking 1 pack of cigarettes daily for approximately 25 years. He quit approximately 1984. He has had some alcohol use in the past, but never heavy. INTERIM HISTORY: A skeletal survey done through the [facility] on 10/19/2018 reported an ill-defined lesion involving the midshaft of the right humerus with some expansion of the cortex and with the appearance of an expansile lesion. No other definite bone lesion was identified. There were degenerative changes noted to involve the spine, sacroiliac joints, shoulders, hips, knees, feet, wrists, and hands. He was seen for a scheduled visit on 11/21/2018. At that time he reported new pain in his upper back on the right side and in his lower back/left hip area. With the findings reported on the skeletal survey and with his having new bone pain, I had recommended a restaging PET/CT. That study was completed on 11/25/2018. It showed no findings to indicate osseous metastatic disease. However, compared to the prior study from December 2017, there was development of hypermetabolic lymph nodes in the subcarinal region, right hilum, and bilateral perihilar regions, suspicious for lymphoma. The largest was a right hilar node measuring 1.4 cm with SUV 7.7. As the adenopathy did not appear to correlate with his symptoms, I had recommended close observation/expectant management. Further evaluation with CT scans of the chest, abdomen, and pelvis on 03/09/2019 showed slightly prominent pretracheal and hilar lymph nodes, unchanged compared to the PET/CT from November 2018. The largest lymph nodes were noted to measure 8 to 9 mm. There were moderate chronic emphysematous changes with small micronodular infiltrates in the right middle lobe, right upper lobe, and anterior segment of the left upper lobe, felt to be most likely inflammatory/infectious. There was no adenopathy in the abdomen/pelvis. The prostate was noted to be enlarged measuring 5.6 x 4.1 x 4.3 cm. PSA was just slightly above normal range at 4.24 ng/mL. He was seen for a follow-up visit in May 2019. At that time he was having fever and symptoms of respiratory infection, for which he was given antibiotic therapy with azithromycin. There was no change in the monoclonal protein or in the free light chain studies. He continued on observation/expectant management for the myeloma, as there appeared to be no indication for treatment. His repeat chest CT on 07/17/2020 showed no evidence of pulmonary infiltrate or suspicious pulmonary nodules and there were no pathologically enlarged mediastinal, hilar, or axillary lymph nodes. There were no acute findings in the abdomen/pelvis. There were no suspicious osseous lesions noted. His laboratory studies in November 2020 did show an increase in his M protein and in his free kappa light chain, but he appeared stable clinically, and he continued expectant management. He is seen for a scheduled visit. He complains that he has been feeling really bad. His most significant complaints have been nausea and constipation. The constipation did not improve significantly even with going off his pain medicine for several weeks. He continues to have severe weakness/fatigue, but he is able to do some light work. ECOG score is 1. Appetite is pretty good. He has not had fever. He has had some sweating at night, but not bad. He does report having bad sinus congestion/drainage and he has had sore throat. He says his breathing is terrible. He does not complain of cough, and he has not been having chest pain. He says he is nauseated all the time. He has constipation, and he has been having mucus discharge from the rectum. He has not had any rectal bleeding. Bladder function is not good. He has chronic pain in his back and legs. He also has pain in his shoulders. He complains that he hurts all over his body and he says the pain stays at a level of 8-10. Medications: B-6 1 (500 mg) Tablet Oral daily, Cholecalciferol 1 (5000 Units) Capsule Oral daily, Magnesium Capsule Oral daily, OxyCODONE HCl 1 (10 mg) Tablet Oral four times a day PRN, Pantoprazole Sodium 1 (40 mg) Tablet, enteric coated Oral b.i.d., Spiriva HandiHaler Capsule Inhalation daily, Trelegy Ellipta 1 (100-62.5-25 mcg/inh) Aerosol Powder, Breath Activated Inhalation q 6 hours, Xanax 1 (0.5 mg) Tablet Oral t.i.d., Zofran 1 (8 mg) Tablet Oral b.i.d. Allergies: antiinflammatory drugs, Aspirin, Carafate, Codeine Sulfate, Pradaxa, and Prednisone. Vital Signs: Performed on Apr 23, 2021 11:23 Height - 70.00 in Weight - 181.8 lbs (HIGH) BSA - 2.00 sq.m BMI - 26.09 Temperature - 98.0 F (LOW) Pulse - 72 /min Respiration - 16 /min BP - 158/76 mm(hg) (HIGH) O2 Sat - 99 % Pain - 9 Fatigue - 10 Physical Examination: Constitutional - He appears somewhat weak generally, Eyes - Sclerae nonicteric. Conjunctivae clear, ENMT - No lesions noted in the oral cavity, Hematologic/Lymphatic - No cervical, clavicular, or axillary adenopathy, Respiratory - Lungs are clear with diminished air movement bilaterally, Cardiovascular - Heart rhythm is regular. There is no murmur, gallop, or rub noted, Abdomen - Soft. Liver and spleen are not enlarged. There is no abdominal mass or ascites noted. There is no inguinal adenopathy, Extremities - No edema, Neurologic - No focal neurologic deficits noted. Lab/Imaging: Test performed on Apr 23, 2021 11:10 Sodium 139 mmol/L Potassium 4.5 mmol/L Chloride 100 mmol/L CO2 24 mmol/L Anion Gap 19.5 BUN 11 mg/dL Creatinine 0.9 mg/dL Cr Clearance (Est) 80.9000 mL/min Glucose 94 mg/dL Osmolality - Calculated 287 mOsm/kg Calcium 8.6 mg/dL Protein, Total 7.7 g/dL Albumin 4.1 g/dL Globulin 3.6 g/dL Bilirubin, Total 0.3 mg/dL ALT (SGPT) 18 U/L AST (SGOT) 19 U/L Alkaline Phosphatase 97 IU/L WBC 5.8 10 3/uL RBC 4.55 10 6/uL HGB 14.2 g/dL HCT 43.5 % MCV 95.6 fl MCH 31.2 pg MCHC 32.6 g/dL RDW 13.1 % Platelet Count 253 10 3/cmm MPV 9.7 fL Neutrophils 3.85 10 3/uL Lymphocytes 1.6 10 3/uL Monocytes 0.3 10 3/uL Eosinophils 0.0 10 3/uL Basophils 0.0 10 3/uL Neutrophil % 66.6 % Lymphocyte % 27.5 % Monocyte % 5.2 % Eosinophil % 0.2 % Basophils % 0.2 % NRBC % 0 % [place] Free Light Chains 101.6 mg/L Lambda Free Light Chains 3.0 mg/L IgA 2491 mg/dL [place]/Lambda Free Ratio 33.87 Problem List: 1. IgA kappa monoclonal gammopathy. His previous evaluation was consistent with smoldering myeloma. 2. He had an episode of pulmonary embolism in October 2011. He received suboptimal treatment due to intolerance to multiple anticoagulants. He has since then just remained on aspirin prophylaxis with no further thromboembolism. 3. He has COPD with chronic shortness of breath and cough. 4. He has chronic pain which appears to be due primarily to degenerative arthritis/degenerative disease of the spine. 5. He has symptoms of peripheral neuropathy. 6. He has post traumatic stress disorder related to service in [place]. He had significant agent orange exposure during that time. He has associated chronic anxiety. 7. In July 2016 he was found to have a gastric ulcer by EGD, though he had been taking both Protonix and Tagamet. 8. A restaging PET/CT on 11/25/2018 showed new FDG avid adenopathy in the subcarinal region, right hilum, and bilateral perihilar regions which was felt to be suspicious for lymphoma. Problems Addressed with this Encounter and Plan: 1. Patient with IgA kappa monoclonal gammopathy. His previous evaluation was consistent with smoldering myeloma. By objective assessment there was no definite indication for treatment. Because of his multiple complaints, he did have a brief trial of therapy with Velcade/Dexamethasone beginning in March 2012. He tolerated it poorly, and he was then followed expectantly. During follow-up he has continued to have numerous complaints and he has fairly marginal performance status. There has been no evidence, though, of symptomatic progression of the myeloma. In November 2020 there was an increase in his M protein and in his free kappa light chain. However, as he appeared stable clinically he continued on expectant management. His current protein electrophoresis studies are pending. There appears to be no significant change in his clinical status, but that it is somewhat difficult to assess given his multiple chronic complaints. In the absence of any evidence of symptomatic progression of the myeloma, we will continue to follow him on observation/symptomatic management. I will tentatively plan a follow-up visit in 3 months. 2. He had an episode of pulmonary embolism in October 2011. He received suboptimal treatment due to intolerance to multiple anticoagulants. He has since then just remained on aspirin prophylaxis with no further thromboembolism. 3. A restaging PET/CT on 11/25/2018 showed new FDG avid adenopathy in the subcarinal region, right hilum, and bilateral perihilar regions which was felt to be suspicious for lymphoma. The largest node was in the right hilum measuring 1.4 cm with SUV 7.7. As his symptoms did not appear to correlate with the PET/CT findings, I had initially recommended observation/expectant management. His repeat CT scans of the chest, abdomen, and pelvis on 03/09/2019 showed no progression of the lymphadenopathy in the mediastinum. There were inflammatory type changes in both lungs. There was no other lymphadenopathy noted and there were no lytic bone lesions reported. It has been followed expectantly. 4. He has had multiple chronic complaints which appear to be unrelated to the myeloma. The most significant have been extreme weakness/fatigue, chronic pain, and difficulty breathing. The cause has not been entirely certain, but at least some component of the symptoms are likely related to underlying degenerative arthritis/degenerative disease of the spine and to underlying COPD. He also has symptoms of peripheral neuropathy. He continues symptomatic management. 5. He has post traumatic stress disorder related to service in [place]. He had significant agent orange exposure during that time. He has associated chronic anxiety. He also reports having increasing difficulty sleeping. He has been managing the anxiety with alprazolam. Signed By: Ajay Linares M.D. <<Signature on File>>
[2021-04-27 10:03] LABS: ABNORMAL PROTEIN BAND 1 1.9 g/dL (NONE DETECTED); ABNORMAL PROTEIN BAND 2 0.1 g/dL (NONE DETECTED); ALBUMIN 3.9 g/dL (3.8-4.8); ALPHA 1 GLOBULIN 0.3 g/dL (0.2-0.3); ALPHA 2 GLOBULIN 0.8 g/dL (0.5-0.9); BETA 1 GLOBULIN 0.4 g/dL (0.4-0.6); BETA 2 GLOBULIN 0.3 g/dL (0.2-0.5); GAMMA GLOBULIN 2.1 g/dL (0.8-1.7)
== END 2021-04-23 10:25 | disposition home or self-care (01) ==
LOC: ONCMED 10:33
PROVIDERS: PCP Nurse Practitioner Family; Visit Provider Internal Medicine Medical Oncology
DX: D47.2 Monoclonal gammopathy (principal); Z86.711 Personal history of pulmonary embolism; J44.9 Chronic obstructive pulmonary disease, unspecified; G89.29 Other chronic pain; F43.10 Post-traumatic stress disorder, unspecified; Y37.90XA Military operations, unspecified, initial encounter; K25.9 Gastric ulcer, unspecified as acute or chronic, without hemorrhage or perforation; R59.9 Enlarged lymph nodes, unspecified; F41.9 Anxiety disorder, unspecified; Z77.29 Contact with and (suspected) exposure to other hazardous substances; Z79.82 Long term (current) use of aspirin; Z79.899 Other long term (current) drug therapy
CPT/HCPCS: 36415; 80053; 82784; 83883; 84155; 84165; 85025; 99214

== ENCOUNTER 2021-06-18 12:28 | Emergency (ER) | payer OTHER, MEDICARE, SELFPAY ==
[2021-06-18 12:46] VITALS: BP 145/80; PULSE 73; RESP 16; TEMP 36.6; O2SAT 97; BMI 24.7
--- NOTE | 2021-06-18 14:26 | CTR_ITS ---
PROCEDURE INFORMATION: Exam: CT Chest With Contrast; Diagnostic Exam date and time: 06/18/2021 3:16 PM Age: 76 years old Clinical indication: Abdominal pain; Localized; Right upper quadrant (ruq); Right-sided; Additional info: Ruq pain, HX of myeloma- request Dr. Linares TECHNIQUE: Imaging protocol: Diagnostic computed tomography of the chest with contrast. Radiation optimization: All CT scans at this facility use at least one of these dose optimization techniques: automated exposure control; mA and/or kV adjustment per patient size (includes targeted exams where dose is matched to clinical indication); or iterative reconstruction. Contrast material: VISI 320; Contrast volume: 95 ml; Contrast route: INTRAVENOUS (IV); COMPARISON: CT Chest/Abdomen/Pelvis wo IV 03/09/2019 2:11 PM RADIATION DOSE METRICS: Total DLP (mGy-cm): 1155.71 FINDINGS: Lungs: Curvilinear scarring at the posterior right lung base. No consolidation. No masses. Pleural spaces: No pneumothorax. No pleural effusion. Heart: No cardiomegaly. No pericardial effusion. Aorta: No aortic aneurysm. Lymph nodes: No enlarged lymph nodes. Bones/joints: No acute fracture. No aggressive osseous lesion. Soft tissues: Unremarkable. PROCEDURE INFORMATION: Exam: CT Abdomen And Pelvis With Contrast Exam date and time: 06/18/2021 3:16 PM Age: 76 years old Clinical indication: Abdominal pain; Localized; Right upper quadrant (ruq); Right-sided; Additional info: Ruq pain, HX of myeloma- request Dr. Linares TECHNIQUE: Imaging protocol: Computed tomography of the abdomen and pelvis with contrast. Radiation optimization: All CT scans at this facility use at least one of these dose optimization techniques: automated exposure control; mA and/or kV adjustment per patient size (includes targeted exams where dose is matched to clinical indication); or iterative reconstruction. Contrast material: VISI 320; Contrast volume: 95 ml; Contrast route: INTRAVENOUS (IV); COMPARISON: CT Chest/Abdomen/Pelvis wo IV 03/09/2019 2:11 PM RADIATION DOSE METRICS: Total DLP (mGy-cm): 1155.71 FINDINGS: Liver: Normal. No mass. Gallbladder and bile ducts: Cholecystectomy. No ductal dilation. Pancreas: Fatty atrophy. No ductal dilation. Spleen: Normal. No splenomegaly. Adrenal glands: Normal. No mass. Kidneys and ureters: 1.2 cm simple appearing cyst noted along the mid polar region of the left kidney. No hydronephrosis. Stomach and bowel: No obstruction. No mucosal thickening. Appendix: No evidence of appendicitis. Intraperitoneal space: No free air. No significant fluid collection. Vasculature: No abdominal aortic aneurysm. Lymph nodes: No enlarged lymph nodes. Urinary bladder: Under distended, grossly unremarkable. Reproductive: Enlarged prostate. Bones/joints: No acute fracture. No aggressive osseous lesion. Soft tissues: Unremarkable. CT/CT chest abd pel w con* IMPRESSION: No acute findings. IMPRESSION: No acute findings.
--- NOTE | 2021-06-18 14:28 | ED_ITS ---
HPI - Abdominal Pain General: Chief Complaint: Abdominal Pain Stated Complaint: ABD pain Time Seen by Provider: 06/18/21 14:06 History of Present Illness: She presents with worsening right upper quadrant pain over the last few months. Been worse last couple weeks. Sent here by Dr. Linares's office. Patient has a history of a constipation also. History of multiple myeloma and COPD patient denies fever has had some nausea and vomiting over the last 6 months. Feels nauseous a lot, pain is worse now occurring at night. Patient has history of taking Protonix has been on Nexium and Prilosec. Has had scope done. Has been exposed to agent orange. [facility] Patient denies any history of heartburn or reflux though. Associated Symptoms: Reports nausea, vomiting and other (Constipation chronic); Denies chills and fever(s) Review of Systems Const: Denies: fever(s), chills or body aches Eyes: Denies: eye discomfort ENMT: Denies: throat pain Card: Denies: chest pain Resp: Denies: dyspnea GI: Reports: abdominal pain, nausea, vomiting and other (Constipation chronic) Skin/Breast: Denies: rash Neuro: Denies: headache(s) Psych: Denies: depression or suicidal ideation PFS ED PFSH: Social History (Updated 04/22/19 @ 12:36 by Lisa Chiu LPN) Smoking and tobacco status: never smoked Physical Exam Const: COMMON NORMALS: no acute distress, patient oriented x3 and alert HENMT: COMMON NORMALS: normocephalic and external ears normal HEAD & SCALP: normocephalic EXTERNAL EAR: Yes external ears normal Eye: COMMON NORMALS: EOMs intact bilaterally Neck/C-Spine: COMMON NORMALS: no JVD Resp: COMMON NORMALS: normal respiratory effort and No use of accessory muscles AUSCULTATION: diminished lung sounds bilateral Cardio: COMMON NORMALS: no JVD GI: INSPECTION: Yes normal to inspection AUSCULTATION: Yes normoactive bowel sounds PALPATION: Yes Tenderness to palpation present (GI) Details: RUQ Extremity: COMMON NORMALS: normal to inspection and full ROM Neuro: COMMON NORMALS: patient oriented x3 SENSORIUM/ORIENTATION: Yes alert Psych: COMMON NORMALS: mental status grossly normal Skin: COMMON NORMALS: no rashes or lesions noted GENERAL SKIN EXAM: no rashes or lesions noted Course 2 Vital Signs: Vital signs: Vital Signs Temperature 97.8 F 06/18/21 12:46 Pulse Rate 73 06/18/21 12:46 Respiratory Rate 16 06/18/21 12:46 Blood Pressure 145/80 06/18/21 12:46 Pulse Oximetry 97 06/18/21 12:46 MDM - Abdominal Pain Medical Decision Making Patient presents here with abdominal pain intermittent for the last 6 months. He said is been worse in the last few weeks in his right upper quadrant specially at nighttime. Sent here by Dr. Linares's office. Laboratory studies [facility] radiology studies CT of chest and abdomen were all negative for any concerning factors. Patient has symptoms signs and symptoms consistent with gastritis. Patient struck to stop Protonix because did not appear like it is helping and try the Pepcid AC and then Mylanta at night follow-up with his primary care provider. Lab Data : 06/18/21 14:24 06/18/21 14:24 Labs/Radiology: Radiology Impressions Chest/Abdomen/Pelvis CT 06/18/21 14:26 IMPRESSION: No acute findings. IMPRESSION: No acute findings. Laboratory Results WBC 5.2 10^3/uL (4.0-10.0) 06/18/21 14:24 RBC 4.62 10^6/uL (4.1-5.3) 06/18/21 14:24 Hgb 14.8 g/dL (11.7-16.6) 06/18/21 14:24 Hct 44.7 % (42.0-52.0) 06/18/21 14:24 MCV 96.8 fl (80-94) H 06/18/21 14:24 MCH 32.0 pg (28.0-34.0) 06/18/21 14:24 MCHC 33.1 g/dL (30.0-36.0) 06/18/21 14:24 RDW 13.1 % (12.1-15.1) 06/18/21 14:24 Plt Count 226 10^3/cmm (130-400) 06/18/21 14:24 MPV 9.6 fL (7.4-10.4) 06/18/21 14:24 Neut % (Auto) 74.8 % 06/18/21 14:24 Lymph % (Auto) 20.7 % 06/18/21 14:24 [place] % (Auto) 4.1 % 06/18/21 14:24 Eos % (Auto) 0.0 % 06/18/21 14:24 Baso % (Auto) 0.2 % 06/18/21 14:24 Neut # (Auto) 3.88 10^3/uL (1.8-7.7) 06/18/21 14:24 Lymph # (Auto) 1.1 10^3/uL (0.8-4.8) 06/18/21 14:24 [place] # (Auto) 0.2 10^3/uL (0.2-0.9) 06/18/21 14:24 Eos # (Auto) 0.0 10^3/uL (0.0-0.8) 06/18/21 14:24 Baso # (Auto) 0.0 10^3/uL (0.0-0.1) 06/18/21 14:24 Nucleated RBC % (auto) 0 % 06/18/21 14:24 Nucleated RBCs # 0.0 /100WBC 06/18/21 14:24 Sodium 137 mmol/L (136-145) 06/18/21 14:24 Potassium 4.5 mmol/L (3.5-5.1) 06/18/21 14:24 Chloride 101 mmol/L (98-107) 06/18/21 14:24 Carbon Dioxide 24 mmol/L (22-29) 06/18/21 14:24 Anion Gap 16.5 (5-19) 06/18/21 14:24 BUN 6 mg/dL (8-23) L 06/18/21 14:24 Creatinine 1.2 mg/dL (0.7-1.2) 06/18/21 14:24 GFR Calculation Not Reportable 06/18/21 14:24 Glucose 130 mg/dL (65-115) H 06/18/21 14:24 Calculated Osmolality 283 mOsm/kg (285-295) L 06/18/21 14:24 Calcium 9.4 mg/dL (8.5-10.5) 06/18/21 14:24 Total Bilirubin 0.4 mg/dL (0.15-1.2) 06/18/21 14:24 AST 20 U/L (0-40) 06/18/21 14:24 ALT 22 U/L (0-41) 06/18/21 14:24 Alkaline Phosphatase 102 IU/L (40-130) 06/18/21 14:24 Total Protein 7.9 g/dL (6.6-8.7) 06/18/21 14:24 Albumin 4.4 g/dL (3.5-5.2) 06/18/21 14:24 Globulin 3.5 g/dL (1.3-4.6) 06/18/21 14:24 Lipase 15 U/L (13-60) 06/18/21 14:24 Urine Color Yellow (Yellow) 06/18/21 14:53 Urine Appearance Clear (CLEAR) 06/18/21 14:53 Urine pH 8 (5-7) H 06/18/21 14:53 Ur Specific [place] 1.015 (1.005-1.030) 06/18/21 14:53 Urine Protein Neg (Negative) 06/18/21 14:53 Urine Glucose (UA) Norm (Normal) 06/18/21 14:53 Urine Ketones Negative (Negative) 06/18/21 14:53 Urine Blood Neg (Negative) 06/18/21 14:53 Urine Nitrate Negative (Negative) 06/18/21 14:53 Urine Bilirubin Neg (Negative) 06/18/21 14:53 Prot Sulfosalicylic Acd Negative (Negative) 06/18/21 14:53 Urine Urobilinogen Norm mg/dL (Negative) 06/18/21 14:53 Ur Leukocyte Esterase Negative (Negative) 06/18/21 14:53 Discharge Plan Discharge Patient Disposition: Home Clinical Impression: Gastritis Condition: Stable Prescriptions: New Pepcid 40 mg tablet 40 mg PO BID Qty: 30 0RF No Action oxycodone 20 mg tablet 20 mg PO BID 0RF Spiriva Respimat 2.5 mcg/actuation mist 2 inh INHALATION QAM 0RF albuterol sulfate [ProAir HFA] 90 mcg/actuation HFA aerosol inhaler 2 puff INHALATION Q6H [id number] Discharge Orders: Discharge ED (Routine); Ordered 06/18/21 Ordered By: José Rogers Discharge Diet: Usual diet Patient Instructions: Gastritis (ED) Activity Restrictions/Additional Instructions: Follow-up with medical provider as directed. Take medications as prescribed. Return to the ER or your medical provider if condition worsens. Please read and understand discharge instructions. If any questions ask please. Stop Protonix. Take Maalox or before bedtime. Follow-up Dr. Vijay ayaal. Coding Level of Care Code ED Food Service Representative for [place] Fwd Exam Comprehensive
[2021-06-18 14:35] LABS: Basophils % 0.2 %; Hematocrit 44.7 % (42.0-52.0); Hemoglobin 14.8 g/dL (11.7-16.6); Lymphocytes # 1.1 10^3/uL (0.8-4.8); Lymphocytes % 20.7 %; Mean Corpuscular HGB Conc 33.1 g/dL (30.0-36.0); Mean Corpuscular Volume 96.8 fl (80-94); Mean Platelet Volume 9.6 fL (7.4-10.4); Monocytes # 0.2 10^3/uL (0.2-0.9); Monocytes % 4.1 %; Neutrophils # 3.88 10^3/uL (1.8-7.7); Neutrophils % 74.8 %; Nucleated Red Blood Cells % 0 %; Platelet Count 226 10^3/cmm (130-400); Red Blood Count 4.62 10^6/uL (4.1-5.3); Red Cell Distribution Width 13.1 % (12.1-15.1); White Blood Count 5.2 10^3/uL (4.0-10.0)
[2021-06-18 15:00] LABS: Alanine Aminotransferase 22 U/L (0-41); Albumin Level 4.4 g/dL (3.5-5.2); Alkaline Phosphatase 102 IU/L (40-130); Anion Gap 16.5 (5-19); Aspartate Amino Transferase 20 U/L (0-40); Blood Urea Nitrogen 6 mg/dL (8-23); Calcium 9.4 mg/dL (8.5-10.5); Carbon Dioxide 24 mmol/L (22-29); Chloride 101 mmol/L (98-107); Globulin 3.5 g/dL (1.3-4.6); Glucose 130 mg/dL (65-115); Lipase 15 U/L (13-60); Osmolality Calculated 283 mOsm/kg (285-295); Potassium 4.5 mmol/L (3.5-5.1); Sodium 137 mmol/L (136-145); Total Bilirubin 0.4 mg/dL (0.15-1.2); Total Protein 7.9 g/dL (6.6-8.7)
[2021-06-18 15:04] LABS: Add Urine Microscopic? NO; Charge for UA Resulting for Rev
[2021-06-18] MEDS: iodixanol 320 mg/mL 100mL Btl IV (15:25)
[2021-06-18 15:36] LABS: Bilirubin Urine Neg (Negative); Blood Urine Neg (Negative); Glucose Urine UA Norm (Normal); Ketones Urine Negative (Negative); Leukocyte Esterase Urine Negative (Negative); Nitrate Urine Negative (Negative); Protein Urine Neg (Negative); Specific Gravity, Urine 1.015 (1.005-1.030); Sulfosalicylic Acid Urine Negative (Negative); Urine Appearance Clear (CLEAR); Urine Color Yellow (Yellow); Urobilinogen Urine Norm (Negative); pH Urine 8 (5-7)
== END 2021-06-18 17:04 | disposition home or self-care (01) ==
PROVIDERS: Emergency Provider Nurse Practitioner Family
DX: K29.70 Gastritis, unspecified, without bleeding (principal)
CPT/HCPCS: 71260; 74177; 80053; 81003; 83690; 85025; 99282; Q9967

== ENCOUNTER 2021-06-19 09:17 | Outpatient (CLI) | payer OTHER, MEDICARE, SELFPAY ==
--- NOTE | 2021-06-19 09:28 | ONC FU_ITS ---
Taylor Bergeron Progress Note Patient: Sai Esqueda Unit #: [id number]: [id number] Dicatated By: Taylor Bergeron N.P.Date of Visit:Jun 19, 2021 Onc MED Follow-up/Prog Note Chief Complaint: Myeloma. History of Present Illness: This is a 76 year-old man with IGA myeloma. I had been following him for a low-level IgA kappa monoclonal gammopathy, initially discovered on protein electrophoresis in March of 2008. His previous evaluation, which included bone marrow aspiration/biopsy, had not shown any evidence of myeloma. However, on a followup electrophoresis study in January 2012, the kappa light chain was mildly elevated, and the kappa/lambda ratio was significantly elevated at 26.5. In addition, his IgA level was significantly elevated at 1700 mg/dL. Repeat bone marrow aspiration/biopsy on 01/25/2012 showed increased cellularity at 80% with plasma cells estimated at 14% of the differential. The plasma cells also showed moderate atypical features, including some with binucleation. The FISH panel for myeloma was abnormal, showing 3 copies of the CKS 1B locus at 1q 21 in 65% of the cells, 3 copies of ASS1 locus at 9q34 in 82.5% of the cells, 3 copies of the CCND1 locus at 11q13 in 80.5% of the cells, and 3 copies of the PML locus at 15q22 an 88.5% of cells. He had further staging with PET/CT which showed no evidence of lytic bone involvement. Based on the bone marrow aspiration/biopsy findings, he did appear to have multiple myeloma. His staging evaluation did not show any definite indication for treatment. However, he was increasingly symptomatic in terms of his extreme fatigue, generalized pain, and other symptoms. He was pretty much insistent on starting some form of treatment, and ultimately I did agree to give him a trial of therapy with Velcade/dexamethasone. He began his first cycle in March 2012. Treatment was stopped after the first week (second dose of Velcade) due to multiple side effects. As yet, he has not had any further treatment. He did have a second opinion evaluation at [facility] in October 2012. 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 He has had chronic complaints of profound fatigue and generalized pain. I have not been able to determine a specific cause it. It has been a long-standing problem, and he has attributed it to having had a significant exposure to agent orange during service in [place]. He does have posttraumatic stress disorder. In October of 2011 he was found to have multiple pulmonary emboli by CT pulmonary angiogram. He was anticoagulated initially with Lovenox and subsequently with warfarin, but he had poor tolerance for multiple anticoagulants, including warfarin, Pradaxa, and Xarelto. He has since then just remained on prophylaxis with aspirin, but with no further thromboembolism. In November 2014 he sustained a traumatic fracture of his right humerus. This apparently was a through and through but minimally displaced fracture of the mid humerus. He was seen by an orthopedic surgeon in [place]. There was no indication for surgery, and the fracture was managed conservatively with immobilization. A follow-up x-ray did show evidence of healing. He has continued observation/expectant management for the myeloma, thus far with no obvious progression. His medical illnesses, in addition to IgA myeloma, include COPD, peptic ulcer disease, and degenerative arthritis. He had an episode of pulmonary embolism in 2011. He has posttraumatic stress disorder, and he reports having had significant chemical exposure to agent orange during the [place]. He has chronic fatigue and chronic pain. He has a history of smoking 1 pack of cigarettes daily for approximately 25 years. He quit approximately 1984. He has had some alcohol use in the past, but never heavy. INTERIM HISTORY: [facility] reported an ill-defined lesion involving the midshaft of the right humerus with some expansion of the cortex and with the appearance of an expansile lesion. No other definite bone lesion was identified. There were degenerative changes noted to involve the spine, sacroiliac joints, shoulders, hips, knees, feet, wrists, and hands. He was seen for a scheduled visit on 11/21/2018. At that time he reported new pain in his upper back on the right side and in his lower back/left hip area. With the findings reported on the skeletal survey and with his having new bone pain, I had recommended a restaging PET/CT. That study was completed on 11/25/2018. It showed no findings to indicate osseous metastatic disease. However, compared to the prior study from December 2017, there was development of hypermetabolic lymph nodes in the subcarinal region, right hilum, and bilateral perihilar regions, suspicious for lymphoma. The largest was a right hilar node measuring 1.4 cm with SUV 7.7. As the adenopathy did not appear to correlate with his symptoms, I had recommended close observation/expectant management. Further evaluation with CT scans of the chest, abdomen, and pelvis on 03/09/2019 showed slightly prominent pretracheal and hilar lymph nodes, unchanged compared to the PET/CT from November 2018. The largest lymph nodes were noted to measure 8 to 9 mm. There were moderate chronic emphysematous changes with small micronodular infiltrates in the right middle lobe, right upper lobe, and anterior segment of the left upper lobe, felt to be most likely inflammatory/infectious. There was no adenopathy in the abdomen/pelvis. The prostate was noted to be enlarged measuring 5.6 x 4.1 x 4.3 cm. PSA was just slightly above normal range at 4.24 ng/mL. He was seen for a follow-up visit in May 2019. At that time he was having fever and symptoms of respiratory infection, for which he was given antibiotic therapy with azithromycin. There was no change in the monoclonal protein or in the free light chain studies. He continued on observation/expectant management for the myeloma, as there appeared to be no indication for treatment. His repeat chest CT on 07/17/2020 showed no evidence of pulmonary infiltrate or suspicious pulmonary nodules and there were no pathologically enlarged mediastinal, hilar, or axillary lymph nodes. There were no acute findings in the abdomen/pelvis. There were no suspicious osseous lesions noted. His laboratory studies in November 2020 did show an increase in his M protein and in his free kappa light chain, but he appeared stable clinically, and he continued expectant management. Patient presents today for an unscheduled visit. He was seen yesterday in the emergency room for right upper quadrant abdominal pain that started approximately 3 to 4 weeks ago but became much worse yesterday. He states he got to the point where he cannot eat anything and it was keeping him awake at night. The notes from the emergency room were reviewed. He had a CT scan of chest abdomen pelvis that was negative, he had a UA that was negative and his blood work was all within normal limits. They due to his Protonix which he states he is not supposed to take anyway due to his agent orange that he was exposed to. He was started on Pepcid 40 mg p.o. twice daily and he states he is feeling better this morning. Review Of Symptoms: See above. Past Medical History: Monoclonal gammopathy Post traumatic stress sydrome Pulmonary emboli Acute GA in 1999 Past Surgical History: Excision right side of neck, benign Covid19 Vacc (Moderna Booster) in 2020 Flu Vaccine in 2012 Pneumovax in 2012 Bone marrow biopsy in 2011 Pneumovax in 2011 Bone marrow biopsy in 2007 Cholecystectomy in 2004 Sub total thyroidectomy in 1990 Allergies: antiinflammatory drugs, Aspirin, Carafate, Codeine Sulfate, Pradaxa, and Prednisone. Medications: B-6 1 (500 mg) Tablet Oral daily Cholecalciferol 1 (5000 Units) Capsule Oral daily Magnesium Capsule Oral daily OxyCODONE HCl 1 (10 mg) Tablet Oral four times a day PRN Pepcid 1 Tablet (of 40 mg) Oral b.i.d. Trelegy Ellipta 1 (100-62.5-25 mcg/inh) Aerosol Powder, Breath Activated Inhalation q 6 hours Xanax 1 (0.5 mg) Tablet Oral t.i.d. Zofran 1 (8 mg) Tablet Oral b.i.d. Family History: Mr. Esqueda does not know if his mother is alive. Mr. Esqueda's father at age 90: medical history includes natural causes . Mr. Esqueda has 3 brothers: 3 unknown. Mr. Esqueda's first brother's medical history includes diabetes. Another brother's medical history includes diabetes. Another brother's medical history includes diabetes and melanoma. He has 1 daughter with an unknown alive status: medical history includes diabetes. Social History: Mr. Esqueda is single and he is a disabled. Mr. Esqueda quit smoking 35 years ago but had smoked 1.0 pack/day for 25 years. He quit drinking 12 years ago. Mr. Esqueda reports contact with hazardous material. He has indicated exposure to the following products: cigarettes. Mr. Esqueda reports the following support systems: lives alone, lives in own house, and adequate transportation available for expected visits. His diet consists of regular meals. He indicates his activity level as: daily activities. exposure to Agent [place]. Physical Examination: Performed on Jun 19, 2021 08:25: Height - 70.00 in, Weight - 176.6 lbs (LOW), BSA - 1.98 sq.m, BMI - 25.34, Temperature - 99.3 F (HIGH), Pulse - 80 /min, Respiration - 16 /min, BP - 148/74 mm(hg) (HIGH), O2 Sat - 98 %, Pain - 8, and Fatigue - 3. Performance Status: 1 - No physically strenuous activity, but ambulatory and able to carry out light or sedentary work (e.g. office work, light house work). (ECOG) Constitutional Alert, cooperative, oriented. Mood and affect appropriate. Appears close to chronological age. Well nourished. Well developed. Head Normocephalic; no scars. Respiratory Lungs are clear to auscultation without rhonchi or wheezing. Cardiovascular Regular rate and rhythm of heart without murmurs, gallops or rubs. Abdomen mild tenderness RUQ, bowel sounds positive Extremities No visible deformities, no cyanosis, clubbing or edema. Pulses 3+ and equal bilaterally. Musculoskeletal No tenderness or swelling, normal range of motion without obvious weakness. Psychiatric Alert and oriented times three. Coherent speech. Verbalizes understanding of our discussions today. Laboratory: Test performed on Apr 23, 2021 11:10 Sodium 139 mmol/L Potassium 4.5 mmol/L Chloride 100 mmol/L CO2 24 mmol/L Anion Gap 19.5 BUN 11 mg/dL Creatinine 0.9 mg/dL Cr Clearance (Est) 80.9000 mL/min Glucose 94 mg/dL Osmolality - Calculated 287 mOsm/kg Calcium 8.6 mg/dL Protein, Total 7.7 g/dL Albumin 4.1 g/dL Globulin 3.6 g/dL Bilirubin, Total 0.3 mg/dL ALT (SGPT) 18 U/L AST (SGOT) 19 U/L Alkaline Phosphatase 97 IU/L WBC 5.8 10 3/uL RBC 4.55 10 6/uL HGB 14.2 g/dL HCT 43.5 % MCV 95.6 fl MCH 31.2 pg MCHC 32.6 g/dL RDW 13.1 % Platelet Count 253 10 3/cmm MPV 9.7 fL Neutrophils 3.85 10 3/uL Lymphocytes 1.6 10 3/uL Monocytes 0.3 10 3/uL Eosinophils 0.0 10 3/uL Basophils 0.0 10 3/uL Neutrophil % 66.6 % Lymphocyte % 27.5 % Monocyte % 5.2 % Eosinophil % 0.2 % Basophils % 0.2 % NRBC % 0 % [place] Free Light Chains 101.6 mg/L Lambda Free Light Chains 3.0 mg/L IgA 2491 mg/dL [place]/Lambda Free Ratio 33.87 Impression: 1. IgA kappa monoclonal gammopathy. His previous evaluation was consistent with smoldering myeloma. 2. He had an episode of pulmonary embolism in October 2011. He received suboptimal treatment due to intolerance to multiple anticoagulants. He has since then just remained on aspirin prophylaxis with no further thromboembolism. 3. He has COPD with chronic shortness of breath and cough. 4. He has chronic pain which appears to be due primarily to degenerative arthritis/degenerative disease of the spine. 5. He has symptoms of peripheral neuropathy. 6. He has post traumatic stress disorder related to service in [place]. He had significant agent orange exposure during that time. He has associated chronic anxiety. 7. In July 2016 he was found to have a gastric ulcer by EGD, though he had been taking both Protonix and Tagamet. 8. A restaging PET/CT on 11/25/2018 showed new FDG avid adenopathy in the subcarinal region, right hilum, and bilateral perihilar regions which was felt to be suspicious for lymphoma. Plan: 1. Patient with IgA kappa monoclonal gammopathy. His previous evaluation was consistent with smoldering myeloma. By objective assessment there was no definite indication for treatment. Because of his multiple complaints, he did have a brief trial of therapy with Velcade/Dexamethasone beginning in March 2012. He tolerated it poorly, and he was then followed expectantly. During follow-up he has continued to have numerous complaints and he has fairly marginal performance status. There has been no evidence, though, of symptomatic progression of the myeloma. In November 2020 there was an increase in his M protein and in his free kappa light chain. However, as he appeared stable clinically he continued on expectant management. His current protein electrophoresis studies are pending. There appears to be no significant change in his clinical status, but that it is somewhat difficult to assess given his multiple chronic complaints. In the absence of any evidence of symptomatic progression of the myeloma, we will continue to follow him on observation/symptomatic management. I will tentatively plan a follow-up visit in 3 months. 2. He had an episode of pulmonary embolism in October 2011. He received suboptimal treatment due to intolerance to multiple anticoagulants. He has since then just remained on aspirin prophylaxis with no further thromboembolism. 3. A restaging PET/CT on 11/25/2018 showed new FDG avid adenopathy in the subcarinal region, right hilum, and bilateral perihilar regions which was felt to be suspicious for lymphoma. The largest node was in the right hilum measuring 1.4 cm with SUV 7.7. As his symptoms did not appear to correlate with the PET/CT findings, I had initially recommended observation/expectant management. His repeat CT scans of the chest, abdomen, and pelvis on 03/09/2019 showed no progression of the lymphadenopathy in the mediastinum. There were inflammatory type changes in both lungs. There was no other lymphadenopathy noted and there were no lytic bone lesions reported. It has been followed expectantly. He had a repeat PET scan on 05/16/2021 which indicated no findings for osseous lesions typical for multiple myeloma. There were stable FDG positive bilateral mediastinal lymph nodes more consistent with chronic inflammation the malignancy and stable since November 2018. He also had a stable FDG positive left thyroid nodule. 4. He has had multiple chronic complaints which appear to be unrelated to the myeloma. The most significant have been extreme weakness/fatigue, chronic pain, and difficulty breathing. The cause has not been entirely certain, but at least some component of the symptoms are likely related to underlying degenerative arthritis/degenerative disease of the spine and to underlying COPD. He also has symptoms of peripheral neuropathy. He continues symptomatic management. 5. He has post traumatic stress disorder related to service in [place]. He had significant agent orange exposure during that time. He has associated chronic anxiety. He also reports having increasing difficulty sleeping. He has been managing the anxiety with alprazolam. 6 he presented today for follow-up after being evaluated in the emergency room for what appeared to be gastritis. His Protonix was discontinued and he was started on Pepcid 40 mg p.o. twice daily. He states he is feeling much better this morning. He continues to have a mild amount of pain but it has been greatly improved. Instructed patient to continue the Pepcid 40 mg p.o. twice daily for the next couple of weeks and when symptoms have resolved decrease Pepcid to 20 mg p.o. twice daily. Patient is to keep scheduled follow-up appointment in 3 months. But if symptoms do not resolve he will call to be seen sooner. Signed By: Taylor Bergeron N.P. <<Signature on File>>
== END 2021-06-19 09:18 | disposition home or self-care (01) ==
LOC: ONCMED 09:18
PROVIDERS: Visit Provider Nurse Practitioner Family
DX: D47.2 Monoclonal gammopathy (principal); J44.9 Chronic obstructive pulmonary disease, unspecified; F43.10 Post-traumatic stress disorder, unspecified; I25.2 Old myocardial infarction; Z79.82 Long term (current) use of aspirin; Z86.711 Personal history of pulmonary embolism; Z79.899 Other long term (current) drug therapy
CPT/HCPCS: 99214

== ENCOUNTER 2021-09-21 14:20 | Oncology outpatient (recurring) (ONCR) | payer OTHER, SELFPAY | END 2021-10-01 23:59 | disposition home or self-care (01) | PROVIDERS: Visit Provider Nurse Practitioner Family | DX: C90.00 Multiple myeloma not having achieved remission (principal); D47.2 Monoclonal gammopathy; Z86.718 Personal history of other venous thrombosis and embolism; Z79.82 Long term (current) use of aspirin; F43.10 Post-traumatic stress disorder, unspecified; F41.9 Anxiety disorder, unspecified; G89.29 Other chronic pain; Z79.891 Long term (current) use of opiate analgesic; J44.9 Chronic obstructive pulmonary disease, unspecified | CPT/HCPCS: 80053; 82784; 83883; 84155; 84165; 85025; 99214 ==

== ENCOUNTER 2021-11-20 09:02 | Oncology outpatient (recurring) (ONCR) | payer OTHER, SELFPAY ==
--- NOTE | 2021-11-20 10:00 | CT_ITS ---
WS: [id number] CT ABDOMEN CONTRAST TECHNIQUE: Contrast enhanced CT of the abdomen with coronal and sagittal reformatted images. CLINICAL INFORMATION: abdominal pain COMPARISON: CT 3 and PET/CT May 16, 2021 DLP: 437.[address] scans at [facility] use at least one of these dose optimization techniques: automated e xposure control; mA and/or kV adjustment per patient size (includes targeted exams where dose is matc hed to clinical indication); or iterative reconstruction. FINDINGS: Prior cholecystectomy. Mild diffuse fatty infiltration liver. Normal portal vein and splenic vein. Mi ld prominence of the common bile duct measuring 7 mm unchanged from previous. This tapers normally at the distal common bile duct. Subsegmental atelectasis fibrosis RIGHT lower lobe. Fatty atrophy of th e pancreas. Normal GE junction. Adrenal glands are normal. Normal renal parenchymal enhancement. No h ydronephrosis in either kidney. Small LEFT renal cyst. No obstructing ureteral calculi visualized. Pelvis imaging not included on thi s examination. Abdominal aorta is normal. Normal celiac and SMA. Fat-containing umbilical hernia. Dis c space narrowing L5-S1. Moderate bilateral bony foraminal narrowing L5-S1. No evidence of high-grade small or large bowel obstruction. Normal appendix in the RIGHT lower quadrant. CT/CT abdomen w con* [id number] IMPRESSION: 1. Cholecystectomy with mild dilatation common bile duct likely physiologic po stcholecystectomy similar to previous. 2. Mild diffuse fatty infiltration liver. 3. No hydronephrosis in either kidney. No obstructing ureteral calculi visuali zed. Pelvis is not included on this examination. 4. Normal caliber abdominal aorta. 5. Normal appendix in the RIGHT lower quadrant. 6. Tiny fat-containing umbilical hernia. 7. No other acute findings.
[2021-11-20 11:18] LABS: Blood Urea Nitrogen 8 mg/dL (8-23)
[2021-11-20] MEDS: iohexol 350 mg/mL 100 mL Btl IV (13:08)
== END 2021-12-02 23:59 | disposition home or self-care (01) ==
PROVIDERS: Visit Provider Nurse Practitioner Family
DX: C90.00 Multiple myeloma not having achieved remission (principal); R10.9 Unspecified abdominal pain; K59.00 Constipation, unspecified; R11.0 Nausea; R63.4 Abnormal weight loss; Z68.23 Body mass index [BMI] 23.0-23.9, adult; Z79.899 Other long term (current) drug therapy
CPT/HCPCS: 74160; 82565; 84520; 99214; Q9967

== ENCOUNTER → 2021-12-08 10:55 | Outpatient (BNVA) | payer OTHER, SELFPAY | PROVIDERS: Visit Provider Surgery | DX: R10.9 Unspecified abdominal pain (principal); R11.0 Nausea; K59.03 Drug induced constipation; T40.2X5A Adverse effect of other opioids, initial encounter; X58.XXXA Exposure to other specified factors, initial encounter | CPT/HCPCS: 99203 ==

== ENCOUNTER 2021-12-28 10:20 | Oncology outpatient (recurring) (ONCR) | payer OTHER, SELFPAY ==
[2021-12-28 10:50] LABS: Basophils % 0.2 %; Eosinophils % 0.4 %; Hematocrit 39.6 % (42.0-52.0); Lymphocytes # 1.4 10^3/uL (0.8-4.8); Lymphocytes % 26.3 %; Mean Corpuscular HGB Conc 32.8 g/dL (30.0-36.0); Mean Corpuscular Hemoglobin 32.3 pg (28.0-34.0); Mean Corpuscular Volume 98.3 fl (80-94); Mean Platelet Volume 9.5 fL (7.4-10.4); Monocytes # 0.3 10^3/uL (0.2-0.9); Monocytes % 5.8 %; Neutrophils # 3.44 10^3/uL (1.8-7.7); Neutrophils % 67.1 %; Nucleated Red Blood Cells % 0 %; Platelet Count 198 10^3/cmm (130-400); Red Blood Count 4.03 10^6/uL (4.1-5.3); Red Cell Distribution Width 13.4 % (12.1-15.1); White Blood Count 5.1 10^3/uL (4.0-10.0)
[2021-12-28 11:11] LABS: Alanine Aminotransferase 28 U/L (0-41); Albumin Level 3.8 g/dL (3.5-5.2); Alkaline Phosphatase 100 U/L (40-130); Anion Gap 12.5 (5-19); Aspartate Amino Transferase 20 U/L (0-40); Blood Urea Nitrogen 8 mg/dL (8-23); Calcium 8.8 mg/dL (8.5-10.5); Carbon Dioxide 30 mmol/L (22-29); Chloride 104 mmol/L (98-107); Globulin 3.5 g/dL (1.3-4.6); Glucose 99 mg/dL (65-115); Osmolality Calculated 292 mOsm/kg (285-295); Potassium 4.5 mmol/L (3.5-5.1); Sodium 142 mmol/L (136-145); Total Bilirubin 0.2 mg/dL (0.15-1.2); Total Protein 7.3 g/dL (6.6-8.7)
[2021-12-28 13:38] LABS: Erythrocyte Sedimentation Rate 5 mm/hr (0-10)
[2021-12-29 12:38] LABS: KAPPA LIGHT CHAIN, FREE, SERUM 85.3 mg/L (3.3-19.4); KAPPA/LAMBDA LIGHT CHAINS FREE 26.66 (0.26-1.65); LAMBDA LIGHT CHAIN, FREE, SERU 3.2 mg/L (5.7-26.3)
[2021-12-30 05:13] LABS: PROTEIN, TOTAL 6.8 g/dL (6.1-8.1)
[2021-12-30 09:33] LABS: ABNORMAL PROTEIN BAND 1 1.5 g/dL (NONE DETECTED); ABNORMAL PROTEIN BAND 2 0.1 g/dL (NONE DETECTED); ALBUMIN 3.6 g/dL (3.8-4.8); ALPHA 1 GLOBULIN 0.3 g/dL (0.2-0.3); ALPHA 2 GLOBULIN 0.7 g/dL (0.5-0.9); BETA 1 GLOBULIN 0.3 g/dL (0.4-0.6); BETA 2 GLOBULIN 0.3 g/dL (0.2-0.5); GAMMA GLOBULIN 1.7 g/dL (0.8-1.7)
== END 2022-01-01 23:59 | disposition home or self-care (01) ==
PROVIDERS: Internal Medicine Medical Oncology; Visit Provider Nurse Practitioner Family
DX: C90.00 Multiple myeloma not having achieved remission (principal); R10.9 Unspecified abdominal pain; K59.00 Constipation, unspecified; R11.0 Nausea; R63.4 Abnormal weight loss; Z68.23 Body mass index [BMI] 23.0-23.9, adult; Z79.899 Other long term (current) drug therapy; R53.83 Other fatigue; G89.29 Other chronic pain; Z79.82 Long term (current) use of aspirin; D47.2 Monoclonal gammopathy; Z86.711 Personal history of pulmonary embolism; Z86.16 Personal history of COVID-19
CPT/HCPCS: 36415; 80053; 83883; 84155; 84165; 85025; 85651; 99214

== ENCOUNTER 2022-04-27 14:05 | Oncology outpatient (recurring) (ONCR) | payer OTHER, SELFPAY ==
[2022-04-27 15:51] LABS: Basophils % 0.2 %; Eosinophils # 0.1 10^3/uL (0.0-0.8); Eosinophils % 1.3 %; Hematocrit 39.7 % (42.0-52.0); Hemoglobin 12.8 g/dL (11.7-16.6); Lymphocytes # 1.9 10^3/uL (0.8-4.8); Lymphocytes % 35.4 %; Mean Corpuscular HGB Conc 32.2 g/dL (30.0-36.0); Mean Corpuscular Hemoglobin 32.3 pg (28.0-34.0); Mean Corpuscular Volume 100.3 fl (80-94); Mean Platelet Volume 9.9 fL (7.4-10.4); Monocytes # 0.4 10^3/uL (0.2-0.9); Monocytes % 6.9 %; Neutrophils # 2.92 10^3/uL (1.8-7.7); Nucleated Red Blood Cells % 0 %; Platelet Count 217 10^3/cmm (130-400); Red Blood Count 3.96 10^6/uL (4.1-5.3); Red Cell Distribution Width 13.1 % (12.1-15.1); White Blood Count 5.2 10^3/uL (4.0-10.0)
[2022-04-27 16:26] LABS: Alanine Aminotransferase 19 U/L (0-41); Alkaline Phosphatase 90 U/L (40-130); Blood Urea Nitrogen 11 mg/dL (8-23); Calcium 8.4 mg/dL (8.5-10.5); Carbon Dioxide 25 mmol/L (22-29); Chloride 100 mmol/L (98-107); Globulin 3.6 g/dL (1.3-4.6); Glucose 118 mg/dL (65-115); Immunoglobulin IGG 300 mg/dL (700-1600); Immunoglobulin IGM 25 mg/dL (40-230); Osmolality Calculated 284 mOsm/kg (285-295); Sodium 137 mmol/L (136-145); Thyroid Stimulating Hormone 2.08 uIU/mL (0.27-4.20); Total Bilirubin 0.2 mg/dL (0.15-1.2); Total Protein 7.6 g/dL (6.6-8.7)
[2022-04-27 16:29] LABS: Erythrocyte Sedimentation Rate 34 mm/hr (0-10)
[2022-04-27 16:33] LABS: Anion Gap 16.4 (5-19); Potassium 4.4 mmol/L (3.5-5.1)
[2022-04-27 16:41] LABS: Aspartate Amino Transferase 23 U/L (0-40); Immunoglobulin IGA 2402 mg/dL (70-400)
[2022-04-27 18:08] LABS: Vitamin B12 1002 pg/mL (232-1245)
[2022-04-29 06:09] LABS: PROTEIN, TOTAL 7.2 g/dL (6.1-8.1)
[2022-04-29 14:18] LABS: LAMBDA LIGHT CHAIN, FREE, SERU 3.5 mg/L (5.7-26.3)
[2022-04-29 15:29] LABS: ABNORMAL PROTEIN BAND 1 1.8 g/dL (NONE DETECTED); ABNORMAL PROTEIN BAND 2 0.1 g/dL (NONE DETECTED); ALBUMIN 3.6 g/dL (3.8-4.8); ALPHA 1 GLOBULIN 0.3 g/dL (0.2-0.3); ALPHA 2 GLOBULIN 0.7 g/dL (0.5-0.9); BETA 1 GLOBULIN 0.4 g/dL (0.4-0.6); BETA 2 GLOBULIN 0.3 g/dL (0.2-0.5); GAMMA GLOBULIN 1.9 g/dL (0.8-1.7)
== END 2022-05-04 23:59 | disposition home or self-care (01) ==
LOC: ONCMED 14:06
PROVIDERS: Internal Medicine Medical Oncology; Visit Provider Nurse Practitioner Family
DX: C90.00 Multiple myeloma not having achieved remission (principal); D47.2 Monoclonal gammopathy; R53.1 Weakness; R53.83 Other fatigue; M54.50 Low back pain, unspecified; K59.00 Constipation, unspecified; E87.8 Other disorders of electrolyte and fluid balance, not elsewhere classified; R51.9 Headache, unspecified; H53.9 Unspecified visual disturbance; Z79.899 Other long term (current) drug therapy; Z87.891 Personal history of nicotine dependence
CPT/HCPCS: 36415; 80053; 82607; 82784; 83883; 84155; 84165; 84443; 85025; 85651; 99214

== ENCOUNTER 2022-05-27 12:35 | Outpatient (CLI) | payer OTHER, SELFPAY ==
--- NOTE | 2022-05-27 13:00 | MR_ITS ---
WS: [id number] MRI BRAIN WITH AND WITHOUT CONTRAST HISTORY: Headache and disequilibrium, history of multiple myeloma. COMPARISON: 12/10/2011 TECHNIQUE: Multiplanar imaging performed through the brain with MultiHance 16 ml's IV. No acute infarcts are seen. Mena-white matter differentiation is well preserved. Very minimal atrophy and small vessel ischemic disease. No prior infarct. No susceptibility artifacts or prior lacunar infarcts. Ventricles and extra-axial spaces are normal. Clivus and pituitary gland are normal. Visualized posterior fossa and brainstem are also normal. Postcontrast images are negative for masses or vascular malformations. Dural venous sinuses are normal. Paranasal sinuses: Small amount mucoperiosteal thickening throughout the RIGHT maxillary sinus. No ai r-fluid levels. Mastoid air cells: Normal. Calvarium and scalp: Normal. MR/MR head wo/w con [id number] IMPRESSION: 1. No evidence for metastatic disease to the brain or acute infarct. 2. Mild atrophy and small vessel ischemic disease. 3. Mild RIGHT mucoperiosteal thickening maxillary sinus.
--- NOTE | 2022-05-27 13:45 | MR_ITS ---
WS: [id number] MRI LUMBAR SPINE WITH AND WITHOUT CONTRAST HISTORY: Multiple myeloma with back pain, chronic low back pain. No injury. COMPARISON: 02/24/2011 TECHNIQUE: Sagittal and axial multisequence imaging is submitted. Postcontrast imaging with MultiHanc e 16 mL IV. Marked increase in thoracic kyphosis and cervical lordosis. Disc spaces are narrowed. Seen on the loc alizer is a 5 mm lucency in the T4 vertebral body. Additional area of decreased T1 signal with mild i ncreased signal around the border in the T11 vertebral body measuring 17 x 14 mm. On the STIR sequenc e there is enhancement on the postcontrast images. There is diffuse enhancement throughout the T11 lisa ne lesion. 3 mm retrolisthesis of L5. Moderate disc space narrowing at L5-S1. Conus terminates normally at L1-2 disc level. L1-L2: Mild bilateral facet arthritis. No high-grade stenosis. L2-L3: Mild bilateral facet joint arthritis and ligamentum flavum hypertrophy. No stenosis. L3-L4: Mild annular disc bulging with bilateral facet joint and ligamentum flavum hypertrophy. Very s light asymmetric bulging into the LEFT foramen. L4-L5: Mild annular disc bulging is slightly asymmetric to the LEFT. Moderate ligamentum flavum hyper trophy and facet arthritis. Mild encroachment in the subarticular recesses. There is increased T2 sig nal and mild enhancement within the L4-5 facet joint. Favor synovitis in the facet joint hypertrophy and arthritis. L5-S1: Mild annular disc bulging with mild facet and ligamentum flavum hypertrophy. Osteophyte and fa cet encroachment into the lateral recesses and foramina causing [id number] stenosis. There is m ild encroachment upon the S1 nerve roots and the L5 nerve roots. No osteomyelitis or discitis on the postcontrast imaging. MR/MR lumbar spine wo/w con [id number] IMPRESSION: 1. Mild encroachment into the subarticular recesses at L4-5. 2. Facet joint arthritis with enhancement at L4-5. Most consistent with synovi tis. 3. Mild to moderate bilateral subarticular recess and foraminal stenosis at L5 -S1. Mild encroachment upon the L5 and S1 nerve roots. 4. Lytic area with enhancement in the T11 vertebral body. With history of mult iple myeloma this is likely a bone lesion associated with multiple myeloma. 5. Seen only on the localizer is a very small lytic lesion in the T4 vertebral body which may be an additional lesion associated with multiple myeloma.
[2022-05-27] MEDS: gadobenate dimeglumine 20 mL vial IV (14:13)
== END 2022-05-27 12:36 | disposition home or self-care (01) ==
LOC: RAD 12:37
PROVIDERS: Visit Provider Internal Medicine Medical Oncology
DX: R42 Dizziness and giddiness (principal); C90.00 Multiple myeloma not having achieved remission; M54.50 Low back pain, unspecified; M48.07 Spinal stenosis, lumbosacral region; M47.816 Spondylosis without myelopathy or radiculopathy, lumbar region; G31.9 Degenerative disease of nervous system, unspecified; I67.82 Cerebral ischemia
CPT/HCPCS: 70553; 72158; A9577

== ENCOUNTER 2022-07-24 06:13 | Outpatient (CLI) | payer OTHER, SELFPAY ==
--- NOTE | 2022-07-24 08:30 | PETR_ITS ---
PROCEDURE INFORMATION: Exam: PET/CT Skull Base to Mid-thigh Exam date and time: 07/24/2022 9:02 AM Age: 77 years old Clinical indication: Abnormal findings; Abnormal mri of the spine; Patient HX: HX of myeloma LABS AND CLINICAL REPORTS: Glucose: 125 mg/dl Treatment strategy for malignancy (PET staging): Initial Staging (PI) TECHNIQUE: Imaging protocol: Following at least four-hour fasting and following the injection of radiopharmaceutical, low dose CT images were obtained. Then, PET images were obtained. Attenuation corrected images were constructed using the CT scan. Fused images of PET and CT were reviewed. The standardized uptake values (SUV) reported below are maximum values within a region of interest, expressed in gm/ml. Exam includes orbital meatal line to mid-thigh. Radiopharmaceutical: 13.79 mCi F-18 FDG (Fluorodeoxyglucose), IV. Time of imaging post radiopharmaceutical administration: 1 hour Injection site: Right antecubital COMPARISON: MRI head 05/27/2022, MRI lumbar spine 05/27/2022, CT abdomen and pelvis 11/20/2021, CT chest, abdomen and pelvis 06/18/2021, PT PET Scan 05/16/2021 10:16 AM FINDINGS: Brain: Visualized brain has normal physiologic uptake. Pharynx: No abnormal uptake. Larynx: No abnormal uptake. Thyroid: A focus of uptake in the low-density 1 cm nodule in the left thyroid lobe is noted, SUV max 4.4 (previously 3.6) on series 4, image 36. The right lobe of the thyroid gland appears to been resected. Lungs, pleura and trachea: No abnormal uptake.Mild dependent streaky density in the lungs is consistent with atelectasis. Heart: Normal physiologic uptake. Mediastinal space: No abnormal uptake. Liver: No abnormal uptake. Gallbladder and bile ducts: No abnormal uptake. Cholecystectomy clips are present. Pancreas: No abnormal uptake. Spleen: No abnormal uptake. Adrenal glands: No abnormal uptake. Kidneys and ureters: Normal physiologic uptake. Stomach and bowel: No abnormal uptake. Urinary bladder: Mild thickening of the wall of the urinary bladder is noted without definite uptake. Assessment of the urinary bladder is limited by PET-CT. Reproductive: Mild prominence of the prostate gland without elevated uptake. Vasculature: No abnormal uptake. There are diffuse atherosclerotic changes. Lymph nodes: Persistent uptake in mediastinal and bilateral hilar lymph nodes for example in the subcarinal space measuring approximately 1.1 cm, SUV max 4.0 (previous SUV max 5.0) on PET series 4, image 52, in the superior right perihilar space measuring approximately 9 mm with an SUV max 5.5 on series 4, image 50 (previous SUV max 7.2) and in the inferior left hilar region measuring approximately 1 cm, SUV max 4.3 on series 4, image 50 (previous SUV max 3.6). Uptake in the mid left hilar region demonstrates an SUV max 4.6 (previously 5.2) on PET series 4, image 49. Assessment of lymph node size in this region is limited without intravenous contrast. Bones/joints: A focal region of elevated uptake to the left of midline in the T11 vertebral body is noted, SUV max 4.5 without a well-defined correlating lesion on the CT images. SUV max in the T11 vertebral body on the prior exam was 4.5 in a slightly decreased distribution posteriorly within the vertebral body. This lesion corresponds to the enhancing lesion noted on the comparison MRI of 05/27/2022. Mild uptake in the left lateral aspect of the T9 vertebral body is noted superiorly which appears to correspond to an ovoid region of mild hypodensity on CT series 3, image 61 measuring 0.9 x 0.7 cm, SUV max 3.6. This region of hypodensity appears similar to 05/16/2021 however the uptake in this region appears new. No definite additional areas abnormal uptake in the osseous structures. Mild diffuse degenerative changes in the spine are noted with moderate thoracic spine kyphosis. Soft tissues: No abnormal uptake in the visualized head, neck, chest, abdomen, pelvis, and extremities. METRICS: Mediastinal blood pool: SUV max 2.7 [id number] IMPRESSION: 1. A focus of abnormal uptake to the left of midline in the T11 vertebral body (SUV max 4.5) is noted without a well-defined lesion on the CT images. This does however correspond to the region of an enhancing lesion on the comparison MRI and is concerning for neoplastic involvement. Possible additional newly radiotracer avid lesion in the left lateral aspect of the T9 vertebral body. This region was not imaged on the prior MRI. Consider MRI of the thoracic spine with and without contrast for further assessment. 2. Persistence of radiotracer avid mediastinal and bilateral hilar lymph nodes, some of which demonstrate decreased uptake while others demonstrate slightly increased uptake is detailed above.This may be reactive, secondary to infectious or inflammatory involvement. Neoplastic involvement cannot be entirely excluded. 3. Slight increase in abnormal uptake within a left thyroid nodule. 4. Additional nonurgent findings as detailed above.
== END 2022-07-24 06:14 | disposition home or self-care (01) ==
LOC: RAD 07-26 06:13
PROVIDERS: Visit Provider Internal Medicine Medical Oncology
DX: R93.89 Abnormal findings on diagnostic imaging of other specified body structures (principal)
CPT/HCPCS: 78815; A9552

== ENCOUNTER 2022-07-30 10:35 | Outpatient (CLI) | payer OTHER, SELFPAY ==
--- NOTE | 2022-07-30 11:00 | MR_ITS ---
WS: [id number] MRI THORACIC SPINE with and without contrast. HISTORY: Multiple myeloma. Back pain with no injury. Positive PET/CT. COMPARISON: Prior MRI 04/02/2008. PET/CT 07/24/2022. TECHNIQUE: Multiplanar sequences are performed in sagittal and axial planes. MultiHance 16 mL IV. Marked increase in thoracic kyphosis. Mild progression since 2007. Very mild anterior wedging of T4, T5, T6 and T8. Disc spaces are narrowed throughout the thoracic spine. Again identified is a low signal in the posterior mid T11 vertebral body. This lesion measures 12 x 1 0 mm and diffusely enhances. This corresponds to the abnormality described on a prior MRI of and the positive PET/CT. There is no additional abnormality identified within the T9 vertebral body as suspected on the PET/CT. There is an additional STIR hyperintense lesion in the posterior T5 vert ebral body to the RIGHT of midline measuring 8 mm which does enhance also. No additional enhancing lesions or cord compression. MR/MR thoracic spine wo/w [id number] IMPRESSION: 1. Enhancing bone lesions in the T11 and T5 vertebral bodies as described abov e. Suspicious for metastatic sites of multiple myeloma. 2. No enhancement or signal abnormality within the T9 vertebral body as questi oned on the recent PET/CT. 3. No cord compression or soft tissue component.
[2022-07-30] MEDS: gadobenate dimeglumine 20 mL vial IV (11:52)
== END 2022-07-30 10:36 | disposition home or self-care (01) ==
LOC: RAD 10:40
PROVIDERS: PCP Internal Medicine Medical Oncology; Visit Provider Internal Medicine Medical Oncology
DX: C90.00 Multiple myeloma not having achieved remission (principal)
CPT/HCPCS: 72157; A9577

== ENCOUNTER 2022-08-13 13:34 | Outpatient (CLI) | payer OTHER, SELFPAY ==
--- NOTE | 2022-08-13 14:15 | USCV_ITS ---
Sai Esqueda Age: 77 Gender: M : 1945 Exam Date: 08/13/2022 13:58 Ordering Phys: Ajay Linares MD Technologist: Jose Carlos Herrera [place] [facility] [place]ication: high risk med BP: 120 / 75 HR: 67 Rhythm: Sinus Technical Quality: Adequate MEASUREMENTS (Male / Female) Normal Values 2D ECHO LV Diastolic Diameter PLAX 3.1 cm 4.2 - 5.9 / 3.9 - 5.3 cm LV Systolic Diameter PLAX 2.3 cm IVS Diastolic Thickness 1.1 cm 0.6 - 1.0 / 0.6 - 0.9 cm IVS Systolic Thickness 1.6 cm LVPW Diastolic Thickness 1.0 cm 0.6 - 1.0 / 0.6 - 0.9 cm LVPW Systolic Thickness 1.8 cm LVOT Diameter 2.0 cm LV Ejection Fraction 2D Teich 53.5 % LV Ejection Fraction MOD 2C 57.3 % LV Ejection Fraction 2C AL 57.8 % LA Diameter 3.3 cm IVC Diameter 1.2 cm M-MODE Aortic Annulus Diameter 4.0 cm LA Ao Ratio MM 0.8 MV E Point Septal Separation 0.6 cm DOPPLER AV Peak Velocity 105.0 cm/s LVOT Peak Velocity 83.0 cm/s AV Area Cont Eq vti 3.0 cm squared AV Area Cont Eq pk 2.6 cm squared MV Area PHT 3.3 cm squared Mitral E to A Ratio 0.7 MV E' Velocity 36.0 cm/s Mitral E to MV E' Ratio 5.6 Mitral E to LV E' Lateral Ratio 6.8 Mitral E to LV E' Septal Ratio 4.8 TR Peak Velocity 216.7 cm/s TR Peak Gradient 18.8 mmHg TV Peak E Velocity 77.0 cm/s Right Atrial Pressure 3.0 mmHg Pulmonary Artery Systolic Pressu 21.8 mmHg FINDINGS Left Ventricle Normal left ventricular size and systolic function, EF 57 %. No regional wall motion abnormalities. Grade I/IV diastolic dysfunction (abnormal relaxation filling pattern), normal to mildly elevated filling pressures. Right Ventricle The right ventricle is normal in size and function. Right Atrium The right atrium is normal in size. Left Atrium The left atrium is normal in size. Mitral Valve Trace to mild mitral valve regurgitation. Aortic Valve Trace aortic valve regurgitation. Tricuspid Valve No gross abnormalities noted. Trace tricuspid valve regurgitation. Estimated pulmonary artery peak systolic pressure within normal limits Pulmonic Valve Pulmonic valve not well visualized. Pericardium Normal pericardium without effusion. Aorta Normal ascending aorta dimension. IVC Normal inferior vena cava. CONCLUSIONS Normal left ventricular size and systolic function, EF 57 %. No regional wall motion abnormalities. Grade I/IV diastolic dysfunction (abnormal relaxation filling pattern), normal to mildly elevated filling pressures. Trace aortic valve regurgitation. Trace to mild mitral valve regurgitation. Trace tricuspid valve regurgitation. Estimated pulmonary artery peak systolic pressure within normal limits There is no pericardial effusion. There are no intracardiac masses. No similar previous studies are available for comparison. Dr Alanna Schneider MD FACC (Electronically Signed) Final Date: 17 Aug 2022 09:58 S
== END 2022-08-13 13:35 | disposition home or self-care (01) ==
LOC: RAD 13:36
PROVIDERS: PCP Internal Medicine Medical Oncology; Visit Provider Internal Medicine Medical Oncology
DX: C90.00 Multiple myeloma not having achieved remission (principal); C79.51 Secondary malignant neoplasm of bone; Z79.899 Other long term (current) drug therapy
CPT/HCPCS: 93306

== ENCOUNTER 2022-08-26 08:00 | Oncology outpatient (recurring) (ONCR) | payer OTHER, SELFPAY ==
[2022-08-05 13:06] LABS: Basophils % 0.2 %; Eosinophils % 0.3 %; Hematocrit 40.7 % (42.0-52.0); Hemoglobin 13.2 g/dL (11.7-16.6); Lymphocytes # 1.7 10^3/uL (0.8-4.8); Lymphocytes % 28.2 %; Mean Corpuscular HGB Conc 32.4 g/dL (30.0-36.0); Mean Corpuscular Volume 98.5 fl (80-94); Mean Platelet Volume 9.8 fL (7.4-10.4); Monocytes # 0.3 10^3/uL (0.2-0.9); Monocytes % 5.3 %; Neutrophils # 3.85 10^3/uL (1.8-7.7); Neutrophils % 65.8 %; Nucleated Red Blood Cells % 0 %; Platelet Count 222 10^3/cmm (130-400); Red Blood Count 4.13 10^6/uL (4.1-5.3); Red Cell Distribution Width 13.2 % (12.1-15.1); White Blood Count 5.9 10^3/uL (4.0-10.0)
[2022-08-05 13:45] LABS: Alanine Aminotransferase 15 U/L (0-41); Albumin Level 4.1 g/dL (3.5-5.2); Alkaline Phosphatase 102 U/L (40-130); Anion Gap 14.2 (5-19); Aspartate Amino Transferase 20 U/L (0-40); Blood Urea Nitrogen 8 mg/dL (8-23); Calcium 9.1 mg/dL (8.5-10.5); Carbon Dioxide 26 mmol/L (22-29); Chloride 101 mmol/L (98-107); Globulin 3.5 g/dL (1.3-4.6); Glucose 107 mg/dL (65-115); Osmolality Calculated 283 mOsm/kg (285-295); Potassium 4.2 mmol/L (3.5-5.1); Sodium 137 mmol/L (136-145); Total Bilirubin 0.2 mg/dL (0.15-1.2); Total Protein 7.6 g/dL (6.6-8.7)
[2022-08-05 14:26] LABS: Immunoglobulin IGA 2114 mg/dL (70-400); Immunoglobulin IGG 201 mg/dL (700-1600); Immunoglobulin IGM < 25 mg/dL (40-230)
[2022-08-09 11:51] LABS: KAPPA LIGHT CHAIN, FREE, SERUM 96.4 mg/L (3.3-19.4); KAPPA/LAMBDA LIGHT CHAINS FREE 34.43 (0.26-1.65); LAMBDA LIGHT CHAIN, FREE, SERU 2.8 mg/L (5.7-26.3)
[2022-08-10 00:15] LABS: PROTEIN, TOTAL 7.3 g/dL (6.1-8.1)
[2022-08-10 10:31] LABS: ABNORMAL PROTEIN BAND 1 1.7 g/dL (NONE DETECTED); ABNORMAL PROTEIN BAND 2 0.1 g/dL (NONE DETECTED); ALBUMIN 3.7 g/dL (3.8-4.8); ALPHA 1 GLOBULIN 0.3 g/dL (0.2-0.3); ALPHA 2 GLOBULIN 0.7 g/dL (0.5-0.9); BETA 1 GLOBULIN 0.4 g/dL (0.4-0.6); BETA 2 GLOBULIN 0.3 g/dL (0.2-0.5); GAMMA GLOBULIN 1.9 g/dL (0.8-1.7)
[2022-08-26] VITALS (9 sets, daily range): BP systolic 103–133; BP diastolic 67–79; PULSE 60–92; RESP 16–18; TEMP 35.7–36.7; O2SAT 98–99
[2022-08-26 08:27] LABS: Basophils % 0.2 %; Eosinophils % 0.5 %; Hematocrit 36.6 % (42.0-52.0); Lymphocytes # 1.5 10^3/uL (0.8-4.8); Lymphocytes % 33.8 %; Mean Corpuscular HGB Conc 32.8 g/dL (30.0-36.0); Mean Corpuscular Hemoglobin 32.3 pg (28.0-34.0); Mean Corpuscular Volume 98.7 fl (80-94); Mean Platelet Volume 9.9 fL (7.4-10.4); Monocytes # 0.3 10^3/uL (0.2-0.9); Monocytes % 6.4 %; Neutrophils # 2.56 10^3/uL (1.8-7.7); Neutrophils % 58.9 %; Nucleated Red Blood Cells % 0 %; Platelet Count 190 10^3/cmm (130-400); Red Blood Count 3.71 10^6/uL (4.1-5.3); White Blood Count 4.4 10^3/uL (4.0-10.0)
[2022-08-26 09:06] LABS: Alanine Aminotransferase 41 U/L (0-41); Albumin Level 3.6 g/dL (3.5-5.2); Alkaline Phosphatase 98 U/L (40-130); Aspartate Amino Transferase 43 U/L (0-40); Blood Urea Nitrogen 11 mg/dL (8-23); Calcium 8.8 mg/dL (8.5-10.5); Carbon Dioxide 26 mmol/L (22-29); Chloride 104 mmol/L (98-107); Globulin 3.4 g/dL (1.3-4.6); Glucose 100 mg/dL (65-115); Osmolality Calculated 289 mOsm/kg (285-295); Sodium 140 mmol/L (136-145); Total Bilirubin 0.3 mg/dL (0.15-1.2); Uric Acid 5.1 mg/dL (3.4-7.0)
[2022-08-26 09:28] LABS: Hepatitis A Antibody IgM Non-Reactive (Nonreactive); Hepatitis B Core AB, Total Non-Reactive (Nonreactive); Hepatitis B Surface Antigen Non-Reactive (Nonreactive); Hepatitis C Virus Antibody Non-Reactive (Nonreactive)
[2022-08-26 09:29] LABS: Hepatitis B Surface AB < 3.5 (11.5-1000)
[2022-08-26 09:34] LABS: Anion Gap 14.2 (5-19); Potassium 4.2 mmol/L (3.5-5.1)
[2022-08-26 09:49] LABS: Immunoglobulin IGA 1906 mg/dL (70-400); Immunoglobulin IGG 175 mg/dL (700-1600); Immunoglobulin IGM < 25 mg/dL (40-230)
[2022-08-26] MEDS: sodium chloride 0.9% 500 ML 75 ML IV (10:44)
[2022-08-26] MEDS: ondansetron 2 mg/ML SDV 2 mL 8 MG IVP (10:45)
[2022-08-26] MEDS: famotidine 20 mg/2 mL INJ IVP (10:45)
[2022-08-26] MEDS: diphenhydrAMINE 50 mg/mL SDV 1mL 25 MG IVP (10:46)
[2022-08-26] MEDS: acetaminophen 325 mg Tablet 650 MG PO (10:47)
[2022-08-26] MEDS: dextrose 5% 250 ML 75 ML IV (15:08)
[2022-08-27 12:20] LABS: PROTEIN, TOTAL 6.8 g/dL (6.1-8.1)
[2022-08-27 14:14] LABS: KAPPA LIGHT CHAIN, FREE, SERUM 93.8 mg/L (3.3-19.4); KAPPA/LAMBDA LIGHT CHAINS FREE 31.27 (0.26-1.65)
[2022-08-27 16:06] LABS: ABNORMAL PROTEIN BAND 1 1.6 g/dL (NONE DETECTED); ABNORMAL PROTEIN BAND 2 0.1 g/dL (NONE DETECTED); ALBUMIN 3.5 g/dL (3.8-4.8); ALPHA 1 GLOBULIN 0.3 g/dL (0.2-0.3); ALPHA 2 GLOBULIN 0.7 g/dL (0.5-0.9); BETA 1 GLOBULIN 0.3 g/dL (0.4-0.6); BETA 2 GLOBULIN 0.3 g/dL (0.2-0.5); GAMMA GLOBULIN 1.7 g/dL (0.8-1.7)
== END 2022-08-26 23:59 | disposition home or self-care (01) ==
PROVIDERS: PCP Internal Medicine Medical Oncology; Visit Provider Nurse Practitioner Family
DX: Z51.11 Encounter for antineoplastic chemotherapy (principal); C90.00 Multiple myeloma not having achieved remission; D47.2 Monoclonal gammopathy; R74.8 Abnormal levels of other serum enzymes; G89.3 Neoplasm related pain (acute) (chronic); R11.0 Nausea; Z79.52 Long term (current) use of systemic steroids; Z79.891 Long term (current) use of opiate analgesic; Z79.899 Other long term (current) drug therapy
CPT/HCPCS: 36415; 80053; 82784; 83883; 84153; 84155; 84165; 84550; 85025; 86705; 86706; 86709; 86803; 86850; 86900; 87340; 96375; 96413; 96415; 96417; 99214; 99215; J1200; J2405; J3490; J7040; J7050; J7060; J9047; J9227

== ENCOUNTER 2022-09-02 08:17 | Oncology outpatient (recurring) (ONCR) | payer OTHER, SELFPAY ==
[2022-09-02 08:28] VITALS: BP 120/62; PULSE 72; RESP 18; TEMP 36.2; O2SAT 99
[2022-09-02 08:38] LABS: Basophils % 0.1 %; Eosinophils % 0.5 %; Hematocrit 39.3 % (42.0-52.0); Hemoglobin 13.1 g/dL (11.7-16.6); Lymphocytes # 1.7 10^3/uL (0.8-4.8); Mean Corpuscular HGB Conc 33.3 g/dL (30.0-36.0); Mean Corpuscular Hemoglobin 32.3 pg (28.0-34.0); Mean Corpuscular Volume 96.8 fl (80-94); Mean Platelet Volume 9.8 fL (7.4-10.4); Monocytes # 0.6 10^3/uL (0.2-0.9); Neutrophils % 68.1 %; Nucleated Red Blood Cells % 0 %; Platelet Count 169 10^3/cmm (130-400); Red Blood Count 4.06 10^6/uL (4.1-5.3); Red Cell Distribution Width 13.3 % (12.1-15.1); White Blood Count 7.4 10^3/uL (4.0-10.0)
[2022-09-02 09:23] LABS: Alanine Aminotransferase 24 U/L (0-41); Albumin Level 3.7 g/dL (3.5-5.2); Alkaline Phosphatase 84 U/L (40-130); Anion Gap 13.7 (5-19); Aspartate Amino Transferase 14 U/L (0-40); Blood Urea Nitrogen 15 mg/dL (8-23); Calcium 8.3 mg/dL (8.5-10.5); Carbon Dioxide 26 mmol/L (22-29); Chloride 104 mmol/L (98-107); Globulin 2.7 g/dL (1.3-4.6); Glucose 94 mg/dL (65-115); Osmolality Calculated 291 mOsm/kg (285-295); Potassium 3.7 mmol/L (3.5-5.1); Sodium 140 mmol/L (136-145); Total Bilirubin 0.3 mg/dL (0.15-1.2); Total Protein 6.4 g/dL (6.6-8.7)
[2022-09-02] MEDS: sodium chloride 0.9% 500 ML 50 ML IV (10:44)
[2022-09-02] MEDS: famotidine 20 mg/2 mL INJ IVP (10:45)
[2022-09-02] MEDS: ondansetron 2 mg/ML SDV 2 mL 8 MG IVP (10:45)
[2022-09-02] MEDS: acetaminophen 325 mg Tablet 650 MG PO (10:46)
[2022-09-02] MEDS: diphenhydrAMINE 50 mg/mL SDV 1mL 25 MG IVP (10:47)
[2022-09-02 11:11] VITALS: BP 142/70; PULSE 68; RESP 18; TEMP 36.3; O2SAT 100
[2022-09-02 12:05] VITALS: BP 126/74; PULSE 79; RESP 18; TEMP 36.5; O2SAT 100
[2022-09-02 12:35] VITALS: BP 121/65; PULSE 78; RESP 18; TEMP 35.9; O2SAT 98
[2022-09-02 14:20] VITALS: BP 144/71; PULSE 81; RESP 18; TEMP 36.7; O2SAT 99
[2022-09-02] MEDS: dextrose 5% 250 ML 75 ML IV (16:12)
== END 2022-09-02 23:59 | disposition home or self-care (01) ==
PROVIDERS: Nurse Practitioner Family; PCP Internal Medicine Medical Oncology; Visit Provider Nurse Practitioner Family
DX: C90.00 Multiple myeloma not having achieved remission (principal); D47.2 Monoclonal gammopathy; R74.8 Abnormal levels of other serum enzymes; G89.3 Neoplasm related pain (acute) (chronic); Z79.52 Long term (current) use of systemic steroids; Z79.899 Other long term (current) drug therapy
CPT/HCPCS: 80053; 85025; 96375; 96413; 96415; 96417; 99214; J1200; J2405; J3490; J7040; J7050; J7060; J9047; J9227

== ENCOUNTER 2022-09-29 08:30 | Oncology outpatient (recurring) (ONCR) | payer OTHER, SELFPAY ==
[2022-09-09 08:43] VITALS: BP 148/78; PULSE 71; RESP 18; TEMP 35.9; O2SAT 99
[2022-09-09 08:45] LABS: Eosinophils % 0.2 %; Hematocrit 36.1 % (42.0-52.0); Hemoglobin 11.8 g/dL (11.7-16.6); Lymphocytes # 1.5 10^3/uL (0.8-4.8); Lymphocytes % 24.1 %; Mean Corpuscular HGB Conc 32.7 g/dL (30.0-36.0); Mean Corpuscular Hemoglobin 31.9 pg (28.0-34.0); Mean Corpuscular Volume 97.6 fl (80-94); Mean Platelet Volume 10.1 fL (7.4-10.4); Monocytes # 0.6 10^3/uL (0.2-0.9); Monocytes % 9.8 %; Neutrophils % 65.6 %; Nucleated Red Blood Cells % 0 %; Platelet Count 151 10^3/cmm (130-400); Red Cell Distribution Width 13.6 % (12.1-15.1); White Blood Count 6.1 10^3/uL (4.0-10.0)
[2022-09-09 08:47] VITALS: BMI 23.0
[2022-09-09 09:06] LABS: Alanine Aminotransferase 133 U/L (0-41); Albumin Level 3.4 g/dL (3.5-5.2); Alkaline Phosphatase 94 U/L (40-130); Anion Gap 13.3 (5-19); Aspartate Amino Transferase 60 U/L (0-40); Blood Urea Nitrogen 13 mg/dL (8-23); Calcium 8.5 mg/dL (8.5-10.5); Carbon Dioxide 25 mmol/L (22-29); Chloride 105 mmol/L (98-107); Creatinine Clr Calc Pharmacy 70.7653; Globulin 2.4 g/dL (1.3-4.6); Glucose 87 mg/dL (65-115); Osmolality Calculated 287 mOsm/kg (285-295); Potassium 4.3 mmol/L (3.5-5.1); Sodium 139 mmol/L (136-145); Total Bilirubin 0.6 mg/dL (0.15-1.2); Total Protein 5.8 g/dL (6.6-8.7)
[2022-09-16 12:24] VITALS: BP 130/69; PULSE 81; RESP 18; TEMP 36.7; O2SAT 98
[2022-09-16 12:48] LABS: Hematocrit 38.2 % (42.0-52.0); Hemoglobin 12.2 g/dL (11.7-16.6); Lymphocytes # 1.1 10^3/uL (0.8-4.8); Lymphocytes % 22.7 %; Mean Corpuscular HGB Conc 31.9 g/dL (30.0-36.0); Mean Corpuscular Hemoglobin 31.5 pg (28.0-34.0); Mean Corpuscular Volume 98.7 fl (80-94); Mean Platelet Volume 9.2 fL (7.4-10.4); Monocytes # 0.4 10^3/uL (0.2-0.9); Neutrophils # 3.33 10^3/uL (1.8-7.7); Neutrophils % 68.1 %; Nucleated Red Blood Cells % 0 %; Platelet Count 245 10^3/cmm (130-400); Red Blood Count 3.87 10^6/uL (4.1-5.3); Red Cell Distribution Width 13.1 % (12.1-15.1); White Blood Count 4.9 10^3/uL (4.0-10.0)
[2022-09-16 13:07] LABS: Alanine Aminotransferase 54 U/L (0-41); Albumin Level 3.8 g/dL (3.5-5.2); Alkaline Phosphatase 132 U/L (40-130); Anion Gap 13.1 (5-19); Aspartate Amino Transferase 26 U/L (0-40); Blood Urea Nitrogen 10 mg/dL (8-23); Calcium 8.6 mg/dL (8.5-10.5); Carbon Dioxide 23 mmol/L (22-29); Chloride 104 mmol/L (98-107); Globulin 2.6 g/dL (1.3-4.6); Glucose 95 mg/dL (65-115); Osmolality Calculated 281 mOsm/kg (285-295); Potassium 4.1 mmol/L (3.5-5.1); Sodium 136 mmol/L (136-145); Total Bilirubin 0.2 mg/dL (0.15-1.2); Total Protein 6.4 g/dL (6.6-8.7)
[2022-09-16] MEDS: sodium chloride 0.9% 250 ML 75 ML IV (15:08)
[2022-09-16] MEDS: acetaminophen 325 mg Tablet 650 MG PO (15:10)
[2022-09-16] MEDS: diphenhydrAMINE 50 mg/mL SDV 1mL 25 MG IVP (15:10)
[2022-09-16] MEDS: ondansetron 2 mg/ML SDV 2 mL 8 MG IVP (15:14)
[2022-09-16] MEDS: famotidine 20 mg/2 mL INJ IVP (15:19)
[2022-09-16 16:00] VITALS: BP 119/67; PULSE 63; RESP 18; TEMP 36.6; O2SAT 99
[2022-09-16 16:30] VITALS: BP 114/59; PULSE 68; RESP 16; TEMP 35.9; O2SAT 99
[2022-09-16 17:00] VITALS: BP 125/66; PULSE 68; RESP 18; TEMP 35.7; O2SAT 99
[2022-09-16 17:30] VITALS: BP 124/64; PULSE 73; RESP 16; TEMP 36.2; O2SAT 99
[2022-09-16 17:44] LABS: Add Urine Microscopic? NO; Charge for UA Resulting for Rev
[2022-09-16 17:55] LABS: Bilirubin Urine Neg (Negative); Blood Urine Neg (Negative); Glucose Urine UA Norm (Normal); Ketones Urine Negative (Negative); Leukocyte Esterase Urine Negative (Negative); Nitrate Urine Negative (Negative); Protein Urine Neg (Negative); Urine Appearance Clear (CLEAR); Urine Color Light yellow (Yellow); Urobilinogen Urine Norm (Negative); pH Urine 6 (5-7)
[2022-09-16 18:38] VITALS: BP 110/61; PULSE 65; RESP 18; TEMP 36.3; O2SAT 98
[2022-09-23 14:29] VITALS: BP 122/65; PULSE 87; RESP 18; TEMP 36.9; O2SAT 96
[2022-09-23 14:42] LABS: Basophils % 0.2 %; Eosinophils % 0.2 %; Hematocrit 36.4 % (42.0-52.0); Lymphocytes # 1.4 10^3/uL (0.8-4.8); Lymphocytes % 27.9 %; Mean Corpuscular Hemoglobin 31.7 pg (28.0-34.0); Mean Corpuscular Volume 96.3 fl (80-94); Monocytes # 0.4 10^3/uL (0.2-0.9); Monocytes % 7.8 %; Neutrophils # 3.29 10^3/uL (1.8-7.7); Neutrophils % 63.7 %; Nucleated Red Blood Cells % 0 %; Platelet Count 211 10^3/cmm (130-400); Red Blood Count 3.78 10^6/uL (4.1-5.3); Red Cell Distribution Width 12.7 % (12.1-15.1); White Blood Count 5.2 10^3/uL (4.0-10.0)
[2022-09-23 15:00] LABS: Alanine Aminotransferase 34 U/L (0-41); Albumin Level 3.7 g/dL (3.5-5.2); Alkaline Phosphatase 125 U/L (40-130); Aspartate Amino Transferase 17 U/L (0-40); Blood Urea Nitrogen 12 mg/dL (8-23); Calcium 8.4 mg/dL (8.5-10.5); Carbon Dioxide 25 mmol/L (22-29); Chloride 101 mmol/L (98-107); Creatinine Clr Calc Pharmacy 57.2963; Globulin 2.3 g/dL (1.3-4.6); Glucose 152 mg/dL (65-115); Immunoglobulin IGA 579 mg/dL (70-400); Immunoglobulin IGG 300 mg/dL (700-1600); Immunoglobulin IGM 25 mg/dL (40-230); Osmolality Calculated 287 mOsm/kg (285-295); Sodium 137 mmol/L (136-145); Total Bilirubin 0.3 mg/dL (0.15-1.2)
[2022-09-24 12:49] LABS: KAPPA LIGHT CHAIN, FREE, SERUM 27.4 mg/L (3.3-19.4); KAPPA/LAMBDA LIGHT CHAINS FREE 9.79 (0.26-1.65); LAMBDA LIGHT CHAIN, FREE, SERU 2.8 mg/L (5.7-26.3)
[2022-09-24 14:45] LABS: PROTEIN, TOTAL 5.9 g/dL (6.1-8.1)
[2022-09-24 16:09] LABS: ABNORMAL PROTEIN BAND 1 0.5 g/dL (NONE DETECTED); ALBUMIN 3.6 g/dL (3.8-4.8); ALPHA 1 GLOBULIN 0.3 g/dL (0.2-0.3); ALPHA 2 GLOBULIN 0.8 g/dL (0.5-0.9); BETA 1 GLOBULIN 0.4 g/dL (0.4-0.6); BETA 2 GLOBULIN 0.2 g/dL (0.2-0.5); GAMMA GLOBULIN 0.7 g/dL (0.8-1.7)
[2022-09-29 08:51] VITALS: BP 114/66; PULSE 68; RESP 16; TEMP 37.1; O2SAT 99
[2022-09-29 09:13] LABS: Basophils % 0.4 %; Eosinophils % 0.4 %; Hematocrit 38.6 % (42.0-52.0); Hemoglobin 12.8 g/dL (11.7-16.6); Lymphocytes # 1.6 10^3/uL (0.8-4.8); Lymphocytes % 30.5 %; Mean Corpuscular HGB Conc 33.2 g/dL (30.0-36.0); Mean Corpuscular Hemoglobin 31.8 pg (28.0-34.0); Mean Corpuscular Volume 95.8 fl (80-94); Mean Platelet Volume 9.2 fL (7.4-10.4); Monocytes # 0.6 10^3/uL (0.2-0.9); Monocytes % 10.9 %; Neutrophils # 3.03 10^3/uL (1.8-7.7); Neutrophils % 57.6 %; Nucleated Red Blood Cells % 0 %; Platelet Count 217 10^3/cmm (130-400); Red Blood Count 4.03 10^6/uL (4.1-5.3); Red Cell Distribution Width 12.9 % (12.1-15.1); White Blood Count 5.3 10^3/uL (4.0-10.0)
[2022-09-29 09:28] LABS: Alanine Aminotransferase 40 U/L (0-41); Albumin Level 3.8 g/dL (3.5-5.2); Alkaline Phosphatase 131 U/L (40-130); Blood Urea Nitrogen 11 mg/dL (8-23); Calcium 8.6 mg/dL (8.5-10.5); Carbon Dioxide 27 mmol/L (22-29); Chloride 102 mmol/L (98-107); Globulin 2.2 g/dL (1.3-4.6); Glucose 116 mg/dL (65-115); Osmolality Calculated 284 mOsm/kg (285-295); Sodium 137 mmol/L (136-145); Total Bilirubin 0.3 mg/dL (0.15-1.2)
[2022-09-29 09:31] LABS: Anion Gap 12.4 (5-19); Aspartate Amino Transferase 29 U/L (0-40); Potassium 4.4 mmol/L (3.5-5.1)
== END 2022-10-01 23:59 | disposition home or self-care (01) ==
PROVIDERS: Nurse Practitioner Family; PCP Internal Medicine Medical Oncology; Visit Provider Internal Medicine Medical Oncology
DX: C90.00 Multiple myeloma not having achieved remission (principal); D47.2 Monoclonal gammopathy; R53.0 Neoplastic (malignant) related fatigue; R74.01 Elevation of levels of liver transaminase levels; Z79.52 Long term (current) use of systemic steroids; Z79.899 Other long term (current) drug therapy
CPT/HCPCS: 36415; 80053; 81003; 82784; 83883; 84155; 84165; 85025; 96361; 96375; 96413; 96415; 99214; J1200; J2405; J3490; J7050; J9227

== ENCOUNTER 2022-11-10 10:44 | Oncology outpatient (recurring) (ONCR) | payer OTHER, SELFPAY ==
[2022-11-03 14:46] VITALS: BP 117/66; PULSE 72; RESP 18; TEMP 37.3; O2SAT 98; BMI 22.7
[2022-11-03 15:02] LABS: Basophils % 0.4 %; Eosinophils % 0.4 %; Hematocrit 39.4 % (42.0-52.0); Hemoglobin 13.3 g/dL (11.7-16.6); Lymphocytes % 37.1 %; Mean Corpuscular HGB Conc 33.8 g/dL (30.0-36.0); Mean Corpuscular Hemoglobin 32.9 pg (28.0-34.0); Mean Corpuscular Volume 97.5 fl (80-94); Mean Platelet Volume 9.4 fL (7.4-10.4); Monocytes # 0.4 10^3/uL (0.2-0.9); Monocytes % 6.8 %; Neutrophils # 2.98 10^3/uL (1.8-7.7); Neutrophils % 54.9 %; Nucleated Red Blood Cells % 0 %; Platelet Count 202 10^3/cmm (130-400); Red Blood Count 4.04 10^6/uL (4.1-5.3); Red Cell Distribution Width 12.7 % (12.1-15.1); White Blood Count 5.4 10^3/uL (4.0-10.0)
[2022-11-03 15:49] LABS: Alanine Aminotransferase 19 U/L (0-41); Albumin Level 4.2 g/dL (3.5-5.2); Alkaline Phosphatase 94 U/L (40-130); Aspartate Amino Transferase 20 U/L (0-40); Blood Urea Nitrogen 11 mg/dL (8-23); Calcium 8.6 mg/dL (8.5-10.5); Carbon Dioxide 26 mmol/L (22-29); Chloride 103 mmol/L (98-107); Globulin 1.9 g/dL (1.3-4.6); Glucose 120 mg/dL (65-115); Immunoglobulin IGA 410 mg/dL (70-400); Osmolality Calculated 287 mOsm/kg (285-295); Sodium 138 mmol/L (136-145); Total Bilirubin 0.4 mg/dL (0.15-1.2); Total Protein 6.1 g/dL (6.6-8.7)
[2022-11-03 16:08] LABS: Immunoglobulin IGM 25 mg/dL (40-230)
[2022-11-03 16:09] LABS: Immunoglobulin IGG < 300 mg/dL (700-1600)
[2022-11-05 10:55] LABS: PROTEIN, TOTAL 5.8 g/dL (6.1-8.1)
[2022-11-05 15:10] LABS: KAPPA LIGHT CHAIN, FREE, SERUM 21.7 mg/L (3.3-19.4); KAPPA/LAMBDA LIGHT CHAINS FREE 7.23 (0.26-1.65)
[2022-11-05 15:55] LABS: ABNORMAL PROTEIN BAND 1 0.4 g/dL (NONE DETECTED); ALBUMIN 3.7 g/dL (3.8-4.8); ALPHA 1 GLOBULIN 0.3 g/dL (0.2-0.3); ALPHA 2 GLOBULIN 0.7 g/dL (0.5-0.9); BETA 1 GLOBULIN 0.4 g/dL (0.4-0.6); BETA 2 GLOBULIN 0.2 g/dL (0.2-0.5); GAMMA GLOBULIN 0.5 g/dL (0.8-1.7)
== END 2022-12-02 23:59 | disposition home or self-care (01) ==
PROVIDERS: PCP Internal Medicine Medical Oncology; Visit Provider Internal Medicine Medical Oncology
DX: C90.00 Multiple myeloma not having achieved remission (principal); D47.2 Monoclonal gammopathy; R74.8 Abnormal levels of other serum enzymes; R53.0 Neoplastic (malignant) related fatigue; Z79.52 Long term (current) use of systemic steroids; Z79.899 Other long term (current) drug therapy
CPT/HCPCS: 36415; 80053; 82784; 83883; 84155; 84165; 85025; 99214

== ENCOUNTER 2023-02-14 14:42 | Oncology outpatient (recurring) (ONCR) | payer OTHER, SELFPAY ==
[2023-02-07 09:55] VITALS: BP 132/76; PULSE 74; RESP 16; TEMP 36.7; O2SAT 98
[2023-02-07 10:16] LABS: Basophils % 0.3 %; Eosinophils % 0.7 %; Hematocrit 42.1 % (37-53); Lymphocytes # 1.2 10^3/uL (0.8-4.8); Lymphocytes % 19.6 %; Mean Corpuscular HGB Conc 33.5 g/dL (30-55); Mean Corpuscular Hemoglobin 31.1 pg (27-33); Mean Corpuscular Volume 92.7 fl (82-101); Mean Platelet Volume 9.2 fL (7.4-10.4); Monocytes # 0.4 10^3/uL (0.2-0.9); Monocytes % 6.7 %; Neutrophils % 72.4 %; Nucleated Red Blood Cells % 0 %; Platelet Count 239 10^3/cmm (157-399); Red Blood Count 4.54 10^6/uL (3.85-5.65); Red Cell Distribution Width 13.1 % (12.1-15.1); White Blood Count 6.08 10^3/uL (3.29-11.43)
[2023-02-07 10:41] LABS: Alanine Aminotransferase 18 U/L (0-41); Albumin Level 4.1 g/dL (3.5-5.2); Alkaline Phosphatase 95 U/L (40-130); Anion Gap 13.5 (5-19); Aspartate Amino Transferase 18 U/L (0-40); Blood Urea Nitrogen 12 mg/dL (8-23); Calcium 8.7 mg/dL (8.5-10.5); Carbon Dioxide 28 mmol/L (22-29); Chloride 103 mmol/L (98-107); Globulin 1.9 g/dL (1.3-4.6); Glucose 131 mg/dL (65-115); Osmolality Calculated 292 mOsm/kg (285-295); Potassium 4.5 mmol/L (3.5-5.1); Sodium 140 mmol/L (136-145); Total Bilirubin 0.3 mg/dL (0.15-1.2)
[2023-02-07 15:43] LABS: Immunoglobulin IGA 426 mg/dL (70-400); Immunoglobulin IGG < 300 mg/dL (700-1600); Immunoglobulin IGM < 25 mg/dL (40-230)
[2023-02-08 11:39] LABS: KAPPA LIGHT CHAIN, FREE, SERUM 22.3 mg/L (3.3-19.4); KAPPA/LAMBDA LIGHT CHAINS FREE 7.19 (0.26-1.65); LAMBDA LIGHT CHAIN, FREE, SERU 3.1 mg/L (5.7-26.3)
[2023-02-08 16:39] LABS: ABNORMAL PROTEIN BAND 1 0.3 g/dL (NONE DETECTED); ALBUMIN 3.9 g/dL (3.8-4.8); ALPHA 1 GLOBULIN 0.3 g/dL (0.2-0.3); ALPHA 2 GLOBULIN 0.8 g/dL (0.5-0.9); BETA 1 GLOBULIN 0.3 g/dL (0.4-0.6); BETA 2 GLOBULIN 0.2 g/dL (0.2-0.5); GAMMA GLOBULIN 0.5 g/dL (0.8-1.7)
== END 2023-03-03 23:59 | disposition home or self-care (01) ==
PROVIDERS: PCP Internal Medicine Medical Oncology; Visit Provider Internal Medicine Medical Oncology
DX: C90.00 Multiple myeloma not having achieved remission (principal); Z79.899 Other long term (current) drug therapy; Z87.891 Personal history of nicotine dependence
CPT/HCPCS: 36415; 80053; 82784; 83883; 84155; 84165; 85025; 99213

== ENCOUNTER 2023-03-17 11:39 | Outpatient (CLI) | payer OTHER, SELFPAY ==
--- NOTE | 2023-03-17 12:00 | CT_ITS ---
WS: [id number] CT of the lumbar spine, additional two-dimensional coronal and sagittal imaging was obtained. 023 Clinical Data: back pain Comparison: MR lumbar spine, 05/27/2022 DLP: 1240.[address] scans at [facility] use at least one of these dose optimization techniques: automated e xposure control; mA and/or kV adjustment per patient size (includes targeted exams where dose is matc hed to clinical indication); or iterative reconstruction. Findings: There are no compression fractures. There is degenerative disc narrowing at L5-S1. Minimal anterior osteoarthritic spurring is seen at all the lumbar vertebral bodies. The transverse processes and SI joints show no abnormalities. There are no bony lesions suggestive of multiple myeloma. Impression: 1. Degenerative disc narrowing at L5-S1. 2. Minimal anterior osteoarthritic spurring. 3. Negative for bony lesions suggestive of multiple myeloma.
--- NOTE | 2023-03-17 12:30 | CT_ITS ---
WS: [id number] CT scan of the thoracic spine. Additional two-dimensional coronal and sagittal reconstruction was per formed. 03/17/2023 Clinical Data: back pain Comparison: MR thoracic spine, 07/30/2022 DLP: 1240.[address] scans at [facility] use at least one of these dose optimization techniques: automated e xposure control; mA and/or kV adjustment per patient size (includes targeted exams where dose is matc hed to clinical indication); or iterative reconstruction. Findings: In the posterior aspect of the T11 vertebral body there is slight cortical loss and an area of decrea sed cortical bony structure. The lesion measured 1.5 cm and corresponds to the abnormality noted on t MR T-spine. The remainder of the thoracic spine shows no other lesions. There is minimal osteoarth ritis of the vertebral bodies with kyphosis. No acute compression fractures are seen, but there are there are slight wedge deformities from T3-T8. The spinous processes are in good alignment. The proximal ribs are not remarkable. Impression: 1. Small posterior vertebral body defect T11 corresponding to the abnormality seen on the MR of the t horacic spine which could represent a small multiple myeloma lesion. 2. 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
[2023-03-17] MEDS: iohexol 350 mg/mL 500 mL Btl (per mL) IV (13:04)
== END 2023-03-17 11:40 | disposition home or self-care (01) ==
PROVIDERS: PCP Internal Medicine Medical Oncology; Visit Provider Nurse Practitioner Family
DX: R93.7 Abnormal findings on diagnostic imaging of other parts of musculoskeletal system (principal); M47.814 Spondylosis without myelopathy or radiculopathy, thoracic region; M51.37 Other intervertebral disc degeneration, lumbosacral region; M48.07 Spinal stenosis, lumbosacral region; M47.817 Spondylosis without myelopathy or radiculopathy, lumbosacral region
CPT/HCPCS: 72130; 72133; Q9967

== ENCOUNTER 2023-03-24 10:10 | Oncology outpatient (recurring) (ONCR) | payer OTHER, SELFPAY | END 2023-04-03 23:59 | disposition home or self-care (01) | LOC: ONCMED 10:10 | PROVIDERS: PCP Internal Medicine Medical Oncology; Visit Provider Internal Medicine Medical Oncology | DX: C90.00 Multiple myeloma not having achieved remission (principal); Z79.899 Other long term (current) drug therapy; Z87.891 Personal history of nicotine dependence | CPT/HCPCS: 99214 ==

== ENCOUNTER 2023-05-10 11:27 | Outpatient (CLI) | payer OTHER, SELFPAY ==
--- NOTE | 2023-05-10 12:00 | PETR_ITS ---
PROCEDURE INFORMATION: Exam: PET/CT Skull Base to Mid-thigh Exam date and time: 05/10/2023 12:49 PM Age: 78 years old Clinical indication: Condition or disease; Primary cancer: Multiple myeloma not having achieved remission. Secondary malignant neoplasm of bone; Follow-up oncological assessment; Additional info: Restaging myeloma. History of chemotherapy. LABS AND CLINICAL REPORTS: Glucose: 109 mg/dl Treatment strategy for malignancy (PET staging): Restaging (PS) TECHNIQUE: Imaging protocol: Following at least four-hour fasting and following the injection of radiopharmaceutical, low dose CT images were obtained. Then, PET images were obtained. Attenuation corrected images were constructed using the CT scan. Fused images of PET and CT were reviewed. The standardized uptake values (SUV) reported below are maximum values within a region of interest, expressed in gm/ml. Exam includes orbital meatal line to mid-thigh. Radiopharmaceutical: 12.86 mCi F-18 FDG (Fluorodeoxyglucose), IV. Time of imaging post radiopharmaceutical administration: 1 hour Injection site: Right antecubital COMPARISON: Thoracic and lumbar spine CT 03/17/2023, MRI thoracic spine 07/30/2022, [facility] [id number] 07/24/2022 9:02 AM FINDINGS: Brain: Visualized brain has normal physiologic uptake. Pharynx: No abnormal uptake. Larynx: No abnormal uptake. Thyroid: Elevated uptake within a 1.2 cm low-density left thyroid nodule is present, SUV max 3.1 (previously 4.0). Lungs, pleura and trachea: Non radiotracer avid dependent streaky and patchy density in the right lower lobe is noted suggestive of atelectasis. Mild left lower lobe atelectasis is present. Heart: Normal physiologic uptake. Mediastinal space: No abnormal uptake. Liver: No abnormal uptake. Gallbladder and bile ducts: No abnormal uptake. Cholecystectomy clips are present. Pancreas: There is benign-appearing fatty atrophy of the pancreas. No abnormal uptake. Spleen: No abnormal uptake. Adrenal glands: A 9 mm non radiotracer avid right adrenal nodule is present. Unremarkable left adrenal gland. Kidneys and ureters: Normal physiologic uptake. Stomach and bowel: No abnormal uptake. Urinary bladder: Mild thickening of the wall of the urinary bladder is noted diffusely. Assessment of the wall of the urinary bladder is limited on PET/CT. Reproductive: There is moderate prominence of the prostate gland without evidence of focal elevated uptake. Vasculature: No abnormal uptake. Diffuse atherosclerotic changes are noted including within the coronary arteries. Lymph nodes: Radiotracer avid bilateral hilar and mediastinal lymphadenopathy is noted. Examples: Right hilar region within ill-defined lymph nodes, SUV max 7.4 (previously 5.5) on series 3, image 77; left hilar region within ill-defined lymph nodes, SUV max 4.9 (previously 4.6) on series 3, image 74; within a similar in size subcarinal lymph node measuring 1.9 x 0.8 cm on series 3, image 79, SUV max 4.6 (previously 4.0). Bones/joints: Elevated uptake in the posterior aspect of the T11 vertebral body is noted corresponding to a similar lucent lesion on the CT images, SUV max 3.9 (previously 4.5) on series 3, image 108. This corresponds to an enhancing lesion noted on the prior MRI of 07/30/2022. Subtle uptake in the region of the superior endplate of T8 is noted, SUV max 2.6 (previously 3.1) on series 3, image 80 without a well-defined correlating lesion. Similarly, subtle uptake in the mid T6 vertebral body is noted without a well-defined lesion, SUV max 2.4 (previously 2.8) on series 3, image 68. Previously noted uptake in the T9 vertebral body is no longer identified. There is moderate thoracic spine kyphosis. Degenerative changes in the spine are present.The bones appear demineralized. Soft tissues: No abnormal uptake in the visualized head, neck, chest, abdomen, pelvis, and extremities. METRICS: Mediastinal blood pool: SUV max 1.6 PET/PET [facility] SUBSEQ [id number] IMPRESSION: 1. There is persistent elevated uptake within a known lesion compatible with the history of multiple myeloma in the T11 vertebral body with slightly decreased uptake (SUV max 3.9, previously 4.5) since the prior PET-CT suggestive of partial response to therapy. Previously noted uptake in the T9 vertebral body is no longer identified. Subtle areas of uptake in the T6 and T8 vertebral bodies are noted, likely physiologic, without definitive evidence of corresponding lesions on the current CT images. MRI with and without contrast could be performed for further assessment as clinically indicated. 2. Persistent radiotracer avid bilateral hilar and mediastinal lymphadenopathy with interval increase in uptake which may be related to increased inflammatory, infectious or malignant involvement. 3. Slight interval decrease in uptake within a left thyroid nodule. 4. Additional nonurgent findings as detailed above.
== END 2023-05-10 11:28 | disposition home or self-care (01) ==
LOC: RAD 11:28
PROVIDERS: PCP Internal Medicine Medical Oncology; Visit Provider Internal Medicine Medical Oncology
DX: C79.51 Secondary malignant neoplasm of bone (principal); C90.00 Multiple myeloma not having achieved remission; R59.0 Localized enlarged lymph nodes; E04.1 Nontoxic single thyroid nodule
CPT/HCPCS: 78815; A9552

== ENCOUNTER 2023-05-31 09:01 | Oncology outpatient (recurring) (ONCR) | payer OTHER, SELFPAY ==
[2023-05-31 09:15] LABS: Basophils % 0.2 %; Eosinophils % 0.2 %; Hematocrit 38.5 % (37-53); Lymphocytes # 1.7 10^3/uL (0.8-4.8); Lymphocytes % 15.5 %; Mean Corpuscular Hemoglobin 31.5 pg (27-33); Mean Corpuscular Volume 92.5 fl (82-101); Mean Platelet Volume 9.1 fL (7.4-10.4); Monocytes # 0.8 10^3/uL (0.2-0.9); Monocytes % 7.7 %; Neutrophils # 8.16 10^3/uL (1.8-7.7); Nucleated Red Blood Cells % 0 %; Platelet Count 234 10^3/cmm (157-399); Red Blood Count 4.16 10^6/uL (3.85-5.65); Red Cell Distribution Width 12.1 % (12.1-15.1); White Blood Count 10.74 10^3/uL (3.29-11.43)
[2023-05-31 09:47] LABS: Alanine Aminotransferase 28 U/L (0-41); Albumin Level 3.7 g/dL (3.5-5.2); Alkaline Phosphatase 130 U/L (40-130); Anion Gap 16.2 (5-19); Aspartate Amino Transferase 18 U/L (0-40); Blood Urea Nitrogen 15 mg/dL (8-23); Calcium 8.2 mg/dL (8.5-10.5); Carbon Dioxide 24 mmol/L (22-29); Chloride 99 mmol/L (98-107); Globulin 2.8 g/dL (1.3-4.6); Glucose 113 mg/dL (65-115); Immunoglobulin IGA 602 mg/dL (70-400); Osmolality Calculated 282 mOsm/kg (285-295); Potassium 4.2 mmol/L (3.5-5.1); Sodium 135 mmol/L (136-145); Thyroid Stimulating Hormone 2.99 uIU/mL (0.27-4.20); Total Bilirubin 0.4 mg/dL (0.15-1.2); Total Protein 6.5 g/dL (6.6-8.7)
[2023-05-31 09:51] LABS: Immunoglobulin IGG < 300 mg/dL (700-1600); Immunoglobulin IGM < 25 mg/dL (40-230)
--- NOTE | 2023-05-31 14:32 | N.ONRAD NP_ITS ---
Radiation Oncology New Patient Visit Patient: Sai Esqueda MR#: [id number] : 1945 Age: 78 Sex: Male Dictated by: Dr. Tete White Date of Service: 05/31/2023 Referring Physician(s) : Dr. 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 Radiotherapy to date: Summary > No prior radiation therapy. 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 He has had recent x-rays which show lesions at T11 on his MRI and CT. Today he describes pain that extends down through that area in the thoracic spine down to the lumbar spine. This area he says is actually been swollen as well. His pain is currently out of 10. He is taking oxycodone 10 mg and has a new prescription pending. He is here today to discuss treatment to the spine for pain control. Current Medications: Advair Diskus, aLPRAZolam, b-6, ceftin, cholecalciferol, dicyclomine HCl, dilaudid, dronabinol, ergocalciferol, flomax, lactulose, lORazepam, magnesium, nucynta, oxyCODONE HCl, oxyCODONE HCl, pepcid, prochlorperazine Maleate, proscar, protonix, proventil HFA, relistor, requip, senna, trelegy Ellipta, trelegy Ellipta, triamcinolone Acetonide, xanax, zithromax Z-Channing, zofran, zofran. Allergies: Aspirin, Pradaxa, antiinflammatory drugs, Prednisone, Carafate and Codeine Sulfate. Medical History: Acute NE in 1999, monoclonal gammopathy, post traumatic stress sydrome, pulmonary emboli. No history of collagen vascular disease. No previous radiation therapy. Surgical History: Bone marrow biopsy on 01/25/2012, bone marrow biopsy on 04/02/2008, cholecystectomy in 2004, covid19 Vacc (Moderna Booster) on 01/28/2021, excision right side of neck, benign, flu Vaccine on 04/07/2012, pneumovax on 04/07/2012, pneumovax on 10/29/2011 and sub total thyroidectomy in 1990. Family History: Father is at age 90 having experienced natural causes . Mother's alive status is unknown. Brother's alive status is unknown having experienced diabetes. Brother's alive status is unknown having experienced diabetes. Brother's alive status is unknown having experienced diabetes and melanoma. Daughter's alive status is unknown having experienced diabetes. Social History: Last screened on 06/19/2021 - Yes - but has quit for 37 years. Smoked 1.0 pack/day for 25 years (25 pack years). Last screened on 06/19/2021 - Past drinker who quit for 14 years. Patient indicated use of the following products: cigarettes. Patient indicated access to the following support systems: lives alone, lives in own house, and adequate transportation available for expected visits. Patient indicated the following nutritional habits: regular meals. Patient indicated participation in the following forms of activity: daily activities. Current Complaints / Review of Systems: . Vital Signs: Performed on 05/31/2023 10:57 AM BMI - 24.335 kg/m2 (high), Height - 70 in, Weight - 169.6 lbs, Temperature - 98.9 f, Pulse - 80 /min, Respiration - 17 /min, O2 Sat - 95 % (low), Pain - 10, Fatigue - 5 and BP - 111/ 64 mm(hg)(/low). Physical Exam: General: Patient is sitting fairly comfortably in his chair. He is alone today HEENT: Normocephalic atraumatic. Pupils are equal, sclera clear, extraocular muscles intact Pulmonary: Respiratory rate is regular nonlabored Cardiovascular: Regular rate and rhythm Abdomen: Patient is quite thin with minimal adipose tissue. Abdomen soft and nontender Extremities: Without clubbing cyanosis or edema Skin: Warm and dry without ecchymoses or hypopigmentation Thorax: He does have some areas of palpable tenderness in the lower thoracic and upper lumbar area Neurological: Alert and orient x 3. Gait and speech within normal limits Psych: Appropriate for current situation Performance Status: KPS 90 Pathology: Primary, z77.098 - contact with and (suspected) exposure to other hazardous, chiefly nonmedicinal, chemicals, Diagnosed 05/19/2016 (active) , Primary, c90.00 - multiple myeloma not having achieved remission, Diagnosed 02/16/2012 (active) , Primary, d47.2 - monoclonal gammopathy, Diagnosed 04/04/1799 (active) , Secondary, k59.09 - other constipation, Diagnosed 11/11/2015 (active) , Secondary, 276.51 - dehydration, Diagnosed 10/29/2013 (active) , Secondary, 780.71 - chronic fatigue syndrome, Diagnosed 02/16/2012 (active) , Secondary, 309.81 - prolonged posttraumatic stress disorder, Diagnosed 02/16/2012 (active) , Secondary, 410.90 - acute myocardial infarction of unspecified site, episode of care unspecified, Diagnosed 1999 (active) and Secondary, 415.19 - other pulmonary embolism and infarction, Diagnosed 04/04/1799 (active) . Lab: Imaging: See HPI Impression: Multiple myeloma with bony lesions causing pain Plan: I reviewed with him the usual course of treatment with radiation for multiple myeloma. We discussed how sensitive multiple myeloma is 2 radiation treatments. We reviewed the area that he is currently having pain. I reviewed with him the typical course of treatment. We reviewed the simulation process. We discussed the daily treatment regiment. He does have a hour and 15-minute drive [address] for treatment. We talked about the risks and side effects both acute and long-term for the treatment. At this point he is agreed to proceed and is anxious to get started. He will undergo simulation today and begin his treatments sometime later this week with a course for a 1 week of treatment. Signed by: 05/31/2023 2:31:50 PM <<Signature on File>> Time spent with patient:45 CPT Code: CPT Code:
[2023-06-01 11:00] LABS: PROTEIN, TOTAL 5.9 g/dL (6.1-8.1)
[2023-06-01 16:09] LABS: KAPPA LIGHT CHAIN, FREE, SERUM 19.9 mg/L (3.3-19.4); KAPPA/LAMBDA LIGHT CHAINS FREE 4.63 (0.26-1.65); LAMBDA LIGHT CHAIN, FREE, SERU 4.3 mg/L (5.7-26.3)
[2023-06-02 09:03] LABS: ABNORMAL PROTEIN BAND 1 0.5 g/dL (NONE DETECTED); ALBUMIN 3.4 g/dL (3.8-4.8); ALPHA 1 GLOBULIN 0.4 g/dL (0.2-0.3); ALPHA 2 GLOBULIN 0.9 g/dL (0.5-0.9); BETA 1 GLOBULIN 0.3 g/dL (0.4-0.6); BETA 2 GLOBULIN 0.3 g/dL (0.2-0.5); GAMMA GLOBULIN 0.6 g/dL (0.8-1.7)
== END 2023-06-02 23:59 | disposition home or self-care (01) ==
PROVIDERS: PCP Internal Medicine Medical Oncology; Visit Provider Internal Medicine Medical Oncology
DX: Z51.0 Encounter for antineoplastic radiation therapy (principal); C90.00 Multiple myeloma not having achieved remission; Z87.891 Personal history of nicotine dependence; C79.51 Secondary malignant neoplasm of bone; Z79.899 Other long term (current) drug therapy; Z77.098 Contact with and (suspected) exposure to other hazardous, chiefly nonmedicinal, chemicals; D47.2 Monoclonal gammopathy; Z79.891 Long term (current) use of opiate analgesic; J06.9 Acute upper respiratory infection, unspecified; Z53.9 Procedure and treatment not carried out, unspecified reason
CPT/HCPCS: 36415; 77263; 77290; 77295; 77300; 77334; 80053; 82784; 83883; 84153; 84155; 84165; 84443; 85025; 86334; 99205; 99214

== ENCOUNTER 2023-06-28 12:45 | Oncology outpatient (recurring) (ONCR) | payer OTHER, SELFPAY ==
--- NOTE | 2023-06-07 11:21 | ONCRAD TMN_ITS ---
Radiation Oncology Weekly Treatment Management Patient: Sai Esqueda MR#: [id number] : 1945 Attending Physician: Dr. Tete White Date of Service: 06/07/2023 Fractions: 2 of 5 Referring Physician(s) : Dr. Ajay Linares Diagnosis: Z77.098 - Contact with and (suspected) exposure to other hazardous, chiefly nonmedicinal, chemicals, Diagnosed 05/19/2016 (Active) C90.00 - Multiple myeloma not having achieved remission, Diagnosed 02/16/2012 (Active) D47.2 - Monoclonal gammopathy, Diagnosed 04/04/1799 (Active) Radiotherapy to date: Course: bone met 2023, Treatment Site: T&L Spine, Ref. ID: GTV, Energy: 15X, Dose/Fx (cGy): 300, #Fx: 2 / 5, Dose Correction (cGy): 0, Total Dose Delivered (cGy): 600, Start Date: 06/06/2023, Elapsed Days: 1 Reason for visit: The patient is being seen today as part of their regularly scheduled weekly on treatment visits to assess for acute toxicities from radiotherapy. Review of Systems: He is just receiving second treatment today. He has noticed no issues or changes. Vital Signs: Performed on 06/07/2023 11:03 AM BMI - 23.761 kg/m2 (high), Height - 70 in, Weight - 165.6 lbs, Temperature - 96.7 f, Pulse - 69 /min, Respiration - 18 /min, O2 Sat - 99 %, Pain - 8, Fatigue - 0 and BP - 137/ 73 mm(hg). Physical Exam: Patient is in no apparent distress. He respiratory rate is regular nonlabored. Imaging: Radiation therapy imaging related to accurate target localization (i.e. KV, MV and CBCT) was reviewed. Appropriate changes, if any, were made to ensure treatment accuracy. Plan: Will continue with his treatments as planned. He did say today that he was having some issues with passing blood when he had stools. Apparently this has been going on for about a month. He thinks that he has an infection with it but I could not pin him down on why he felt there was an infection. He does state there is mucus along with the stool. He thought his last colonoscopy was 6 months ago but it was actually December 2021. We will get him set up with an appointment to see Dr. Linares in the next few weeks. He would like to have his routine lab work done after we have completed his treatments. Signed by: Dr. Tete White 06/07/2023 11:20:27 AM
--- NOTE | 2023-06-27 09:12 | N.ONRD TS_ITS ---
Radiation Oncology Treatment Summary Patient: Sai Esqueda MR#: [id number] : 1945> Age: 78> Sex: Male Dictated by: Dr. Tete White Date of Service: 06/10/2023 Referring Physician(s) : Dread Suarez Diagnosis: Z77.098 - Contact with and (suspected) exposure to other hazardous, chiefly nonmedicinal, chemicals, Diagnosed 05/19/2016 (Active) C90.00 - Multiple myeloma not having achieved remission, Diagnosed 02/16/2012 (Active) D47.2 - Monoclonal gammopathy, Diagnosed 04/04/1799 (Active) Radiotherapy to Date: Course: bone met 2023, Treatment Site: T&L Spine, Ref. ID: GTV, Energy: 15X, Dose/Fx (cGy): 300, #Fx: 5 / 5, Dose Correction (cGy): 0, Total Dose Delivered (cGy): 1,500, Start Date: 06/06/2023, End Date: 06/10/2023, Elapsed Days: 4 Clinical Summary: The patient tolerated RT well. Had no acute SE Plan: End of treatment today. Follow up with Medical Oncology. Signed by: Dr. Tete White>06/27/2023 9:10:46 AM <<Signature on File>>
[2023-06-28 11:53] LABS: Basophils % 0.3 %; Eosinophils % 0.3 %; Hematocrit 39.4 % (37-53); Lymphocytes # 0.6 10^3/uL (0.8-4.8); Lymphocytes % 16.3 %; Mean Corpuscular HGB Conc 33.8 g/dL (30-55); Mean Corpuscular Hemoglobin 31.8 pg (27-33); Mean Corpuscular Volume 94.3 fl (82-101); Mean Platelet Volume 8.9 fL (7.4-10.4); Monocytes # 0.4 10^3/uL (0.2-0.9); Monocytes % 9.7 %; Neutrophils % 73.4 %; Nucleated Red Blood Cells % 0 %; Platelet Count 117 10^3/cmm (157-399); Red Blood Count 4.18 10^6/uL (3.85-5.65); Red Cell Distribution Width 13.2 % (12.1-15.1); White Blood Count 3.81 10^3/uL (3.29-11.43)
[2023-06-28 12:12] LABS: Alanine Aminotransferase 40 U/L (0-41); Albumin Level 4.1 g/dL (3.5-5.2); Alkaline Phosphatase 118 U/L (40-130); Anion Gap 14.1 (5-19); Aspartate Amino Transferase 32 U/L (0-40); Blood Urea Nitrogen 12 mg/dL (8-23); Calcium 8.8 mg/dL (8.5-10.5); Carbon Dioxide 27 mmol/L (22-29); Chloride 101 mmol/L (98-107); Globulin 2.2 g/dL (1.3-4.6); Glucose 92 mg/dL (65-115); Immunoglobulin IGA 674 mg/dL (70-400); Osmolality Calculated 285 mOsm/kg (285-295); Potassium 4.1 mmol/L (3.5-5.1); Sodium 138 mmol/L (136-145); Total Bilirubin 0.3 mg/dL (0.15-1.2); Total Protein 6.3 g/dL (6.6-8.7)
[2023-06-28 12:13] LABS: Immunoglobulin IGG < 300 mg/dL (700-1600); Immunoglobulin IGM < 25 mg/dL (40-230)
[2023-06-29 09:14] LABS: PROTEIN, TOTAL 6.2 g/dL (6.1-8.1)
[2023-06-29 13:45] LABS: KAPPA LIGHT CHAIN, FREE, SERUM 24.9 mg/L (3.3-19.4); KAPPA/LAMBDA LIGHT CHAINS FREE 7.78 (0.26-1.65); LAMBDA LIGHT CHAIN, FREE, SERU 3.2 mg/L (5.7-26.3)
[2023-06-30 09:50] LABS: ABNORMAL PROTEIN BAND 1 0.6 g/dL (NONE DETECTED); ALBUMIN 3.8 g/dL (3.8-4.8); ALPHA 1 GLOBULIN 0.3 g/dL (0.2-0.3); ALPHA 2 GLOBULIN 0.7 g/dL (0.5-0.9); BETA 1 GLOBULIN 0.4 g/dL (0.4-0.6); BETA 2 GLOBULIN 0.2 g/dL (0.2-0.5); GAMMA GLOBULIN 0.8 g/dL (0.8-1.7)
== END 2023-07-03 23:59 | disposition home or self-care (01) ==
PROVIDERS: PCP Internal Medicine Medical Oncology; Visit Provider Internal Medicine Medical Oncology
DX: C90.00 Multiple myeloma not having achieved remission (principal); Z53.9 Procedure and treatment not carried out, unspecified reason; C79.51 Secondary malignant neoplasm of bone; Z79.899 Other long term (current) drug therapy; Z92.3 Personal history of irradiation; Z87.891 Personal history of nicotine dependence; Z79.891 Long term (current) use of opiate analgesic
CPT/HCPCS: 36415; 77336; 77387; 77412; 80053; 82784; 83883; 84155; 84165; 85025; 86334; 99024; 99214

== ENCOUNTER → 2023-07-11 10:30 | Outpatient (BNVA) | payer OTHER, SELFPAY | PROVIDERS: PCP Internal Medicine Medical Oncology; Visit Provider Internal Medicine Medical Oncology | DX: R30.9 Painful micturition, unspecified (principal) | CPT/HCPCS: 81003 ==

== ENCOUNTER 2023-09-28 10:30 | Oncology outpatient (recurring) (ONCR) | payer OTHER, SELFPAY ==
[2023-09-28 11:01] LABS: Basophils % 0.4 %; Eosinophils # 0.1 10^3/uL (0.0-0.8); Eosinophils % 1.2 %; Hematocrit 40.3 % (37-53); Lymphocytes # 1.3 10^3/uL (0.8-4.8); Lymphocytes % 25.3 %; Mean Corpuscular HGB Conc 33.5 g/dL (30-55); Mean Corpuscular Hemoglobin 31.9 pg (27-33); Mean Corpuscular Volume 95.3 fl (82-101); Mean Platelet Volume 9.3 fL (7.4-10.4); Monocytes # 0.4 10^3/uL (0.2-0.9); Monocytes % 7.8 %; Neutrophils # 3.35 10^3/uL (1.8-7.7); Neutrophils % 65.1 %; Nucleated Red Blood Cells % 0 %; Platelet Count 163 10^3/cmm (157-399); Red Blood Count 4.23 10^6/uL (3.85-5.65); Red Cell Distribution Width 12.7 % (12.1-15.1); White Blood Count 5.14 10^3/uL (3.29-11.43)
[2023-09-28 11:22] LABS: Alanine Aminotransferase 14 U/L (0-41); Alkaline Phosphatase 105 U/L (40-130); Anion Gap 13.1 (5-19); Aspartate Amino Transferase 18 U/L (0-40); Blood Urea Nitrogen 13 mg/dL (8-23); Calcium 8.8 mg/dL (8.5-10.5); Carbon Dioxide 28 mmol/L (22-29); Chloride 103 mmol/L (98-107); Globulin 2.5 g/dL (1.3-4.6); Glucose 133 mg/dL (65-115); Immunoglobulin IGA 684 mg/dL (70-400); Osmolality Calculated 292 mOsm/kg (285-295); Potassium 4.1 mmol/L (3.5-5.1); Sodium 140 mmol/L (136-145); Total Bilirubin 0.4 mg/dL (0.15-1.2); Total Protein 6.5 g/dL (6.6-8.7)
[2023-09-28 11:23] LABS: Immunoglobulin IGG < 300 mg/dL (700-1600); Immunoglobulin IGM < 25 mg/dL (40-230)
[2023-09-29 14:14] LABS: KAPPA LIGHT CHAIN, FREE, SERUM 28.2 mg/L (3.3-19.4); KAPPA/LAMBDA LIGHT CHAINS FREE 7.23 (0.26-1.65); LAMBDA LIGHT CHAIN, FREE, SERU 3.9 mg/L (5.7-26.3)
[2023-09-29 16:08] LABS: ABNORMAL PROTEIN BAND 1 0.6 g/dL (NONE DETECTED); ALBUMIN 3.6 g/dL (3.8-4.8); ALPHA 1 GLOBULIN 0.3 g/dL (0.2-0.3); ALPHA 2 GLOBULIN 0.8 g/dL (0.5-0.9); BETA 1 GLOBULIN 0.3 g/dL (0.4-0.6); BETA 2 GLOBULIN 0.3 g/dL (0.2-0.5); GAMMA GLOBULIN 0.8 g/dL (0.8-1.7)
== END 2023-10-02 23:59 | disposition home or self-care (01) ==
LOC: ONCMED 10:30
PROVIDERS: PCP Internal Medicine Medical Oncology; Visit Provider Internal Medicine Medical Oncology
DX: C90.00 Multiple myeloma not having achieved remission (principal); C79.51 Secondary malignant neoplasm of bone; K92.1 Melena; Z79.899 Other long term (current) drug therapy; Z87.891 Personal history of nicotine dependence
CPT/HCPCS: 36415; 80053; 82784; 83883; 84155; 84165; 85025; 86334; 99214

== ENCOUNTER 2023-11-02 12:09 | Oncology outpatient (recurring) (ONCR) | payer OTHER, SELFPAY | END 2023-11-02 23:59 | disposition home or self-care (01) | PROVIDERS: PCP Internal Medicine Medical Oncology; Visit Provider Internal Medicine Medical Oncology | DX: C90.00 Multiple myeloma not having achieved remission (principal); C79.51 Secondary malignant neoplasm of bone; Z79.899 Other long term (current) drug therapy; Z87.891 Personal history of nicotine dependence | CPT/HCPCS: 99214 ==

== ENCOUNTER 2023-12-01 12:30 | Oncology outpatient (recurring) (ONCR) | payer OTHER, SELFPAY ==
--- NOTE | 2023-11-07 13:45 | USCV_ITS ---
Sai Esqueda Age: 78 Gender: M : 1945 Exam Date: 11/07/2023 13:15 Ordering Phys: Ajay Linares MD Technologist: ADE [place] [facility] [place]: clots Risk Factors: Previous Vascular Surgery: Right Brachial BP: / Left Brachial BP: / Right Left Velocity (cm/s) Spectral Plaque Velocity (cm/s) Spectral Plaque Syst/Diast Broadening Syst/Diast Broadening 116.20/10.70 Prox CCA 98.60 / 14.00 109.00/21.30 Mid CCA 105.10/ 16.90 74.20/ 14.20 Distal CCA 133.40/ 20.80 82.40/ 14.20 Prox ICA 49.80 / 8.70 89.40/ 18.00 Mid ICA 61.70 / 10.90 76.30/ 21.20 Distal ICA 54.20 / 14.60 58.60 ECA 137.80 1.20 ICA/CCA 0.50 Antegrade Vertebral Antegrade 50.00/ 10.10 cm/s 58.70/ 13.20 cm/s Tri Subclavian Tri 89.30 90.60 FINDINGS Comparison: none available. No significant elevation of systolic or diastolic velocities. Waveforms are normal. Mild bilateral scattered calcified plaque and intimal thickening throughout the common carotid arteries and extending through the bifurcation. Antegrade vertebral arteries. CONCLUSIONS Bilateral ICA stenosis less than 50%. Mild carotid atherosclerosis. Dr. Lucia Stock DO (Electronically Signed) Final Date: 07 November 2023 14:29 S
[2023-12-01 13:08] LABS: Basophils % 0.2 %; Eosinophils % 0.4 %; Hematocrit 36.9 % (37-53); Lymphocytes # 0.7 10^3/uL (0.8-4.8); Lymphocytes % 15.4 %; Mean Corpuscular HGB Conc 33.6 g/dL (30-55); Mean Corpuscular Hemoglobin 31.7 pg (27-33); Mean Corpuscular Volume 94.4 fl (82-101); Monocytes # 0.3 10^3/uL (0.2-0.9); Monocytes % 5.7 %; Neutrophils # 3.56 10^3/uL (1.8-7.7); Neutrophils % 78.1 %; Nucleated Red Blood Cells % 0 %; Platelet Count 166 10^3/cmm (157-399); Red Blood Count 3.91 10^6/uL (3.85-5.65); Red Cell Distribution Width 13.1 % (12.1-15.1); White Blood Count 4.56 10^3/uL (3.29-11.43)
[2023-12-01 13:44] LABS: Alanine Aminotransferase 22 U/L (0-41); Albumin Level 3.9 g/dL (3.5-5.2); Alkaline Phosphatase 102 U/L (40-130); Anion Gap 14.4 (5-19); Aspartate Amino Transferase 26 U/L (0-40); Blood Urea Nitrogen 13 mg/dL (8-23); Calcium 8.3 mg/dL (8.5-10.5); Carbon Dioxide 26 mmol/L (22-29); Chloride 106 mmol/L (98-107); Creatinine Clr Calc Pharmacy 63.0513; Globulin 2.3 g/dL (1.3-4.6); Glucose 111 mg/dL (65-115); Osmolality Calculated 295 mOsm/kg (285-295); Potassium 4.4 mmol/L (3.5-5.1); Sodium 142 mmol/L (136-145); Total Bilirubin 0.2 mg/dL (0.15-1.2); Total Protein 6.2 g/dL (6.6-8.7)
[2023-12-01 14:43] LABS: Immunoglobulin IGG < 300 mg/dL (700-1600); Immunoglobulin IGM < 25 mg/dL (40-230)
[2023-12-01 14:44] LABS: Immunoglobulin IGA 732 mg/dL (70-400)
[2023-12-02 11:54] LABS: KAPPA LIGHT CHAIN, FREE, SERUM 33.3 mg/L (3.3-19.4); KAPPA/LAMBDA LIGHT CHAINS FREE 8.12 (0.26-1.65); LAMBDA LIGHT CHAIN, FREE, SERU 4.1 mg/L (5.7-26.3)
[2023-12-02 15:49] LABS: ABNORMAL PROTEIN BAND 1 0.6 g/dL (NONE DETECTED); ALBUMIN 3.6 g/dL (3.8-4.8); ALPHA 1 GLOBULIN 0.3 g/dL (0.2-0.3); ALPHA 2 GLOBULIN 0.7 g/dL (0.5-0.9); BETA 1 GLOBULIN 0.4 g/dL (0.4-0.6); BETA 2 GLOBULIN 0.3 g/dL (0.2-0.5); GAMMA GLOBULIN 0.8 g/dL (0.8-1.7)
== END 2023-12-03 23:59 | disposition home or self-care (01) ==
PROVIDERS: PCP Internal Medicine Medical Oncology; Visit Provider Internal Medicine Medical Oncology
DX: C90.00 Multiple myeloma not having achieved remission (principal); C79.51 Secondary malignant neoplasm of bone; Z79.899 Other long term (current) drug therapy; Z87.891 Personal history of nicotine dependence; Z86.718 Personal history of other venous thrombosis and embolism; Z53.9 Procedure and treatment not carried out, unspecified reason; R33.9 Retention of urine, unspecified
CPT/HCPCS: 36415; 80053; 82784; 83883; 84155; 84165; 85025; 93880; 99213

== ENCOUNTER 2024-01-16 10:25 | Outpatient (CLI) | payer OTHER, SELFPAY ==
--- NOTE | 2024-01-16 11:00 | MR_ITS ---
WS: [id number] MRI THORACIC SPINE WITH CONTRAST TECHNIQUE: Sagittal T1, T2 and STIR imaging. Axial T2 imaging. Post gadolinium imaging was obtained. CLINICAL INFORMATION: lower back pain COMPARISON: MRI 07/30/[address] to 09/25 FINDINGS: Diffuse fatty marrow replacement in the mid and lower thoracic spine compatible with radiation thera py. Enhancing lesion in the T11 vertebral body measuring approximately 1.6 x 1.0 cm. Fatty marrow rep lacement at T8-L1. Additional enhancing lesion T5 vertebral body eccentric to the RIGHT measuring 11 mm compatible with metastatic disease. Heterogeneous bone marrow signal in the upper and mid thoracic spine. No other enhancing lesions. Moderate thoracic kyphosis. No acute compression fractures. No high-grade central canal stenosis. Cor d signal is normal. Small RIGHT adrenal lesion likely adenoma. LEFT adrenal gland is normal. Tiny eso phageal hernia. Normal caliber thoracic aorta. Moderate facet arthropathy lower thoracic spine. MR/MR thoracic spine wo/w [id number] IMPRESSION: 1. Again seen are the enhancing metastatic lesions involving the T11 and T5 ve rtebral bodies which are similar in appearance and measure slightly larger toda y when compared to prior MRI thoracic 07/30/2022. Avid enhancement is suspicious for active disease. 2. No other enhancing metastatic lesions. 3. Diffuse fatty marrow replacement thoracic spine T8-L1 due to radiation ther apy. 4. No high-grade central canal stenosis. Cord signal is normal.
--- NOTE | 2024-01-16 11:45 | MR_ITS ---
WS: [id number] MRI LUMBAR SPINE WITH CONTRAST TECHNIQUE: Sagittal T1, T2 and STIR imaging. Axial T1 and T2 imaging. Post gadolinium imaging was obt ained. CLINICAL INFORMATION: lower back pain COMPARISON: MRI 05/27/2022 FINDINGS: Diffuse fatty marrow replacement throughout the lumbar spine and partially visualized bony pelvis. En hancing metastatic lesion T11 vertebral body described on the thoracic spine MRI. Enhancing lesion hopkins per endplates at L5 compatible with endplate Schmorl's node. Additional endplate Schmorl's node infer ior endplate L3. L1-L2: Mild facet arthropathy. Spinal canal and foramen are patent. L2-L3: No significant disc bulging. Mild facet arthropathy. Spinal canal and foramen are patent. L3-L4: Mild annular bulging. Slight effacement of the ventral thecal sac. Mild narrowing of the subar ticular recess. Moderate facet arthropathy. Mild LEFT foraminal narrowing. L4-L5: Mild annular bulging with mild central canal stenosis. Slight impingement traversing L5 nerve roots bilaterally. Moderate facet arthropathy. Mild LEFT foraminal narrowing. L5-S1: Disc osteophyte complex with endplate ridging. Slight effacement of the ventral thecal sac. Mi ld facet arthropathy. Mild to moderate RIGHT and mild LEFT bony foraminal narrowing.Small amount of e ndplate enhancement at L5 likely degenerative. Heterogeneous low signal in the S2 and S3 vertebral bodies may be due to prior healed sacral insuffic iency fractures. No edema or enhancement visualized although incompletely evaluated at the edge of th e [id number]. This can be further evaluated with MRI sacrum if sacral pain. Partially visualized tiny LEFT renal cyst. MR/MR lumbar spine wo/w con [id number] IMPRESSION: 1. Enhancing metastatic lesion in T11 vertebral body described on the thoracic spine MRI. 2. Small amount of enhancement L3 and L5 vertebral bodies likely endplate Schm orl's nodes and small amount of degenerative change. No definite additional enh ancing metastatic lesions. 3. Decreased heterogeneous bone marrow signal S1 and S2 vertebral body suspici ous for sacral insufficiency fractures. No significant edema or enhancement alt edgar incompletely evaluated on this study. This could be followed up with MRI sacrum if sacral pain. 4. Mild central canal stenosis L4-5 unchanged compared to previous. 5. Mild to moderate RIGHT L5-S1 foraminal narrowing. 6. Enhancement involving the L4-L5 and L5-S1 facets compatible with synovitis.
[2024-01-16] MEDS: gadobenate dimeglumine 20 mL vial 16 ML IV (13:00)
== END 2024-01-16 10:26 | disposition home or self-care (01) ==
LOC: RAD 10:26
PROVIDERS: PCP Internal Medicine Medical Oncology; Visit Provider Nurse Practitioner Family
DX: M47.896 Other spondylosis, lumbar region (principal); R93.7 Abnormal findings on diagnostic imaging of other parts of musculoskeletal system; M99.63 Osseous and subluxation stenosis of intervertebral foramina of lumbar region; M25.78 Osteophyte, vertebrae; M40.204 Unspecified kyphosis, thoracic region; D35.01 Benign neoplasm of right adrenal gland; M46.94 Unspecified inflammatory spondylopathy, thoracic region
CPT/HCPCS: 72157; 72158; A9577

== ENCOUNTER 2024-01-19 10:32 | Oncology outpatient (recurring) (ONCR) | payer OTHER, SELFPAY ==
[2024-01-19 11:10] LABS: Basophils % 0.3 %; Eosinophils % 0.3 %; Hematocrit 41.3 % (37-53); Lymphocytes # 1.4 10^3/uL (0.8-4.8); Lymphocytes % 23.5 %; Mean Corpuscular HGB Conc 33.4 g/dL (30-55); Mean Corpuscular Hemoglobin 31.7 pg (27-33); Mean Corpuscular Volume 94.9 fl (82-101); Mean Platelet Volume 8.9 fL (7.4-10.4); Monocytes # 0.4 10^3/uL (0.2-0.9); Monocytes % 6.7 %; Neutrophils # 4.22 10^3/uL (1.8-7.7); Nucleated Red Blood Cells % 0 %; Platelet Count 209 10^3/cmm (157-399); Red Blood Count 4.35 10^6/uL (3.85-5.65); Red Cell Distribution Width 13.2 % (12.1-15.1); White Blood Count 6.12 10^3/uL (3.29-11.43)
[2024-01-19 11:25] LABS: Alanine Aminotransferase 14 U/L (0-41); Albumin Level 4.2 g/dL (3.5-5.2); Alkaline Phosphatase 120 U/L (40-130); Aspartate Amino Transferase 15 U/L (0-40); Blood Urea Nitrogen 15 mg/dL (8-23); Calcium 8.6 mg/dL (8.5-10.5); Carbon Dioxide 27 mmol/L (22-29); Chloride 101 mmol/L (98-107); Creatinine Clr Calc Pharmacy 62.5977; Globulin 2.5 g/dL (1.3-4.6); Glucose 112 mg/dL (65-115); Immunoglobulin IGG 305 mg/dL (700-1600); Osmolality Calculated 286 mOsm/kg (285-295); Sodium 137 mmol/L (136-145); Total Bilirubin 0.3 mg/dL (0.15-1.2); Total Protein 6.7 g/dL (6.6-8.7)
[2024-01-19 11:37] LABS: Immunoglobulin IGA 985 mg/dL (70-400); Immunoglobulin IGM < 25 mg/dL (40-230)
[2024-01-20 06:04] LABS: PROTEIN, TOTAL 6.4 g/dL (6.1-8.1)
[2024-01-21 12:24] LABS: ABNORMAL PROTEIN BAND 1 0.7 g/dL (NONE DETECTED); ALBUMIN 3.7 g/dL (3.8-4.8); ALPHA 1 GLOBULIN 0.3 g/dL (0.2-0.3); ALPHA 2 GLOBULIN 0.8 g/dL (0.5-0.9); BETA 1 GLOBULIN 0.4 g/dL (0.4-0.6); BETA 2 GLOBULIN 0.3 g/dL (0.2-0.5); GAMMA GLOBULIN 0.9 g/dL (0.8-1.7)
[2024-01-24 11:09] LABS: KAPPA LIGHT CHAIN, FREE, SERUM 30.8 mg/L (3.3-19.4); KAPPA/LAMBDA LIGHT CHAINS FREE 9.06 (0.26-1.65); LAMBDA LIGHT CHAIN, FREE, SERU 3.4 mg/L (5.7-26.3)
== END 2024-02-02 23:59 | disposition home or self-care (01) ==
PROVIDERS: Nurse Practitioner; PCP Internal Medicine Medical Oncology; Visit Provider Internal Medicine Medical Oncology
DX: C90.00 Multiple myeloma not having achieved remission (principal); C79.51 Secondary malignant neoplasm of bone; M47.9 Spondylosis, unspecified; F41.9 Anxiety disorder, unspecified; Z87.891 Personal history of nicotine dependence; Z79.891 Long term (current) use of opiate analgesic; Z79.899 Other long term (current) drug therapy
CPT/HCPCS: 36415; 80053; 82784; 83883; 84155; 84165; 85025; 99214

== ENCOUNTER 2024-02-08 11:53 | Emergency (ER) | payer OTHER, SELFPAY ==
[2024-02-08 12:22] VITALS: BP 110/67; PULSE 68; RESP 17; TEMP 36.6; O2SAT 99; BMI 31.1
--- NOTE | 2024-02-08 13:11 | CT_ITS ---
WS: [id number] CT ABDOMEN PELVIS TECHNIQUE: Contrast-enhanced CT of the abdomen and pelvis with coronal and sagittal reformatted image s. CLINICAL INFORMATION: abd pain COMPARISON: 2021 DLP: 736.[address] scans at [facility] use at least one of these dose optimization techniques: automated e xposure control; mA and/or kV adjustment per patient size (includes targeted exams where dose is matc hed to clinical indication); or iterative reconstruction. FINDINGS: Diffuse fatty infiltration of the liver. Prior cholecystectomy. Normal portal vein and sple irina vein. Bibasilar atelectasis. Fatty atrophy of the pancreas. 8 mm RIGHT adrenal adenoma. Normal re nal parenchymal enhancement. No hydronephrosis. Small LEFT renal cyst. Enlarged prostate measuring 5.1 cm. Recommend correlation PSA. Evidence of bladder outlet obstruction . Normal caliber abdominal aorta. No evidence of small or large bowel obstruction. Moderate fecal ret ention in the transverse colon. Normal appendix. Tiny fat-containing umbilical hernia. Disc space tamra rowing L5-S1. Lower thoracic metastatic lesions better evaluated on the recent MRI. CT/CT abdomen pelvis w con* [id number] IMPRESSION: 1. No acute findings in the abdomen or pelvis. 2. Enlarged prostate measuring 5.1 cm. Recommend correlation PSA. 3. Moderate fecal retention in the transverse colon. 4. Myelomatous lesions in the lower thoracic spine better evaluated on the rec ent thoracic spine MRI
--- NOTE | 2024-02-08 13:15 | ED_ITS ---
HPI - Abdominal Pain 2 General: Chief Complaint: Abdominal Pain Stated Complaint: right side abd pain Time Seen by Provider: 02/08/24 13:05 Source: patient Mode of arrival: ambulatory Limitations: no limitations History of Present Illness: 78-year-old male states been having some right lower quadrant abdominal pain for the last 2 days he denies any fever states the pain some mild pain rates it a 2 out of 10 denies any constipation or diarrhea denies any dysuria denies any worse improved factors Associated Symptoms: Denies chills, diarrhea, dysuria, fever(s), nausea and vomiting Related Data Home Medications Medication Instructions Recorded Confirmed albuterol sulfate 90 mcg/actuation 2 puff inhalation Q6H PRN 04/22/19 01/19/24 aerosol inhaler (ProAir HFA) fluticasone fur. 100 mcg-umeclid 1 inh inhalation DAILY 09/21/21 01/19/24 62.5 mcg-vilant 25 mcg inhalat.powder (Trelegy Ellipta) Previous Rx's Medication Instructions Recorded cetirizine 10 mg tablet (Zyrtec) 10 mg PO QAM #90 tabs 11/10/22 montelukast 10 mg tablet 10 mg PO BEDTIME #90 tabs 11/10/22 citalopram 20 mg tablet 20 mg PO DAILY #30 tabs 02/01/23 azithromycin 250 mg tablet See Rx Instructions PO .COMPLEX #6 05/31/23 (Zithromax Z-Channing) tabs triamcinolone acetonide 0.1 % 1 applic topical TID PRN itching 06/06/23 topical cream #15 grams ondansetron HCl 8 mg tablet 8 mg PO TID PRN nausea and 06/30/23 vomiting #90 tabs lactulose 20 gram/30 mL oral 20 g (30 mL) PO .COMPLEX 12/01/23 solution constipation #1,200 mL alprazolam 0.5 mg tablet 0.5 mg PO TID PRN anxiety #90 tabs 01/19/24 oxycodone 15 mg tablet 30 mg (2 x 15 mg) PO Q4H PRN pain 01/19/24 30 days #180 tabs Allergies Allergy/AdvReac Type Severity Reaction Status Date / Time dexlansoprazole Allergy Intermediate ALGY-Swell Verified 12/01/23 13:44 [From Dexilant] Lip/Tongue/Throat cephalexin [From Keflex] Allergy ADR-Gastrointestinal Verified 12/01/23 13:44 Upset morphine Allergy ADR-Itching Verified 12/01/23 13:44 prednisone Allergy ADR-Anxiety Verified 12/01/23 13:44 valacyclovir Allergy ADR-Nausea Verified 12/01/23 13:44 Review of Systems 2 Const: Denies: fever(s), chills, body aches or change in appetite ENMT: Denies: throat pain or dental pain Card: Denies: chest pain Resp: Denies: dyspnea GI: Reports: abdominal pain; Denies: nausea, vomiting or diarrhea : Denies: dysuria Musc: Denies: neck pain or back pain Skin/Breast: Denies: rash Neuro: Denies: headache(s) PFSH ED 2 PFSH: Medical History History of agent [place] exposure History of pulmonary embolism History of MD (myocardial infarction) Abdominal pain Chronic pain Post traumatic stress disorder Multiple myeloma not having achieved remission Surgical History History of lobectomy of lung Right lung History of cholecystectomy 2004 History of partial thyroidectomy 1990 History of bone marrow biopsy 01/30/2012 04/02/2008 History of excision of mass Right side of neck, benign History of colonoscopy Family History Father Lung disease COPD - smoker Brother Cancer Melanoma Denies family history of Diabetes CAD (coronary artery disease) Clotting disorder Dementia Hyperlipidemia Psychiatric illness Chronic kidney disease (CKD) Suicide Anesthesia complication Bleeding disorder Hypertension Stroke Social History Smoking and tobacco/nicotine status: never used tobacco/nicotine Quit status (tobacco/nicotine): has quit using Year quit tobacco: 1979 Former quit date comment: Smoked for 30 years Substance/Drug Use: never Physical Exam 2 Const: COMMON NORMALS: no acute distress, patient oriented x3 and healthy appearing HENMT: COMMON NORMALS: normocephalic and atraumatic HEAD & SCALP: n ormocephalic and atraumatic Eye: COMMON NORMALS: Equal, round and reactive pupils present and EOMs intact bilaterally PUPIL: Yes Equal, round and reactive pupils present Neck/C-Spine: COMMON NORMALS: full ROM and supple Chest: COMMONS NORMALS: normal inspection of the chest Resp: COMMON NORMALS: normal respiratory effort, No retractions, No use of accessory muscles and clear to auscultation bilaterally AUSCULTATION: clear to auscultation bilaterally Cardio: COMMON NORMALS: regular rate, regular rhythm and No murmurs present (Cardio) RATE: regular rate RHYTHM: regular rhythm GI: COMMON NORMALS: Normal to inspection, nondistended, normoactive bowel sounds present, Soft to palpation and no masses PALPATION: Yes Soft to palpation and Yes Tenderness to palpation present (GI) Details: RLQ Extremity: COMMON NORMALS: normal to inspection and full ROM Neuro: COMMON NORMALS: patient oriented x3, moves all extremities and no focal motor deficits Psych: COMMON NORMALS: mental status grossly normal, Normal thought process present and cooperative THOUGHT PROCESS: Normal thought process present Skin: COMMON NORMALS: no rashes or lesions noted and no wounds GENERAL SKIN EXAM: no rashes or lesions noted Course 2 Vital Signs: Vital signs: Vital Signs Temperature 97.8 F 02/08/24 12:22 Pulse Rate 66 02/08/24 13:34 Respiratory Rate 16 02/08/24 13:34 Blood Pressure 130/74 02/08/24 13:34 Pulse Oximetry 98 02/08/24 13:34 Oxygen Delivery Me thod Room Air 02/08/24 13:34 MDM - Abdominal Pain Medical Decision Making Patient presents with abdominal pain CT scan showed constipation no other acute findings blood work here is normal he is well-appearing here he stable for discharge she is follow-up with PCP and return if worsening he understands agrees to plan. Medical Records I reviewed the patient's medical records. Lab Data I reviewed the patient's lab results. 02/08/24 13:26 02/08/24 13:26 Labs/Radiology: Radiology Impressions Abdomen/Pelvis CT 02/08/24 13:11 IMPRESSION: 1. No acute findings in the abdomen or pelvis. 2. Enlarged prostate measuring 5.1 cm. Recommend correlation PSA. 3. Moderate fecal retention in the transverse colon. 4. Myelomatous lesions in the lower thoracic spine better evaluated on the recent thoracic spine MRI Laboratory Results WBC 6.31 10^3/uL (3.29-11.43) 02/08/24 13:26 RBC 4.13 10^6/uL (3.85-5.65) 02/08/24 13:26 Hgb 13.10 g/dL (11.27-16.99) 02/08/24 13:26 Hct 39.9 % (37-53) 02/08/24 13:26 MCV 96.6 fl (82-101) 02/08/24 13:26 MCH 31.7 pg (27-33) 02/08/24 13:26 MCHC 32.8 g/dL (30-55) 02/08/24 13:26 RDW 13.1 % (12.1-15.1) 02/08/24 13:26 Plt Count 203 10^3/cmm (157-399) 02/08/24 13:26 MPV 8.8 fL (7.4-10.4) 02/08/24 13:26 Neut % (Auto) 61.6 % 02/08/24 13:26 Lymph % (Auto) 30.4 % 02/08/24 13:26 [place] % (Auto) 7.0 % 02/08/24 13:26 Eos % (Auto) 0.6 % 02/08/24 13:26 Baso % (Auto) 0.2 % 02/08/24 13:26 Neut # (Auto) 3.89 10^3/uL (1.8-7.7) 02/08/24 13:26 Lymph # (Auto) 1.9 10^3/uL (0.8-4.8) 02/08/24 13:26 [place] # (Auto) 0.4 10^3/uL (0.2-0.9) 02/08/24 13:26 Eos # (Auto) 0.0 10^3/uL (0.0-0.8) 02/08/24 13:26 Baso # (Auto) 0.0 10^3/uL (0.0-0.1) 02/08/24 13:26 Nucleated RBC % (auto) 0 % 02/08/24 13:26 Nucleated RBCs # 0.0 /100WBC 02/08/24 13:26 Sodium 137 mmol/L (136-145) 02/08/24 13:26 Potassium 4.6 mmol/L (3.5-5.1) 02/08/24 13:26 Chloride 100 mmol/L (98-107) 02/08/24 13:26 Carbon Dioxide 25 mmol/L (22-29) 02/08/24 13:26 Anion Gap 16.6 (5-19) 02/08/24 13:26 BUN 16 mg/dL (8-23) 02/08/24 13:26 Creatinine 1.0 mg/dL (0.7-1.2) 02/08/24 13:26 GFR Calculation Not Reportable 02/08/24 13:26 Glucose 106 mg/dL (65-115) 02/08/24 13:26 Calculated Osmolality 286 mOsm/kg (285-295) 02/08/24 13:26 Calcium 8.4 mg/dL (8.5-10.5) L 02/08/24 13:26 Total Bilirubin 0.2 mg/dL (0.15-1.2) 02/08/24 13:26 AST 39 U/L (0-40) 02/08/24 13:26 ALT 41 U/L (0-41) 02/08/24 13:26 Alkaline Phosphatase 145 U/L (40-130) H 02/08/24 13:26 Total Protein 6.4 g/dL (6.6-8.7) L 02/08/24 13:26 Albumin 4.3 g/dL (3.5-5.2) 02/08/24 13:26 Globulin 2.1 g/dL (1.3-4.6) 02/08/24 13:26 Lipase 15 U/L (13-60) 02/08/24 13:26 Urine Color Yellow (Yellow) 02/08/24 13:30 Urine Appearance Clear (CLEAR) 02/08/24 13:30 Urine pH 6.0 (5-7) 02/08/24 13:30 Ur Specific [place] 1.007 (1.005-1.030) 02/08/24 13:30 Urine Protein Negative (Negative) 02/08/24 13:30 Urine Glucose (UA) Negative (Normal) 02/08/24 13:30 Urine Ketones Negative (Negative) 02/08/24 13:30 Urine Blood Negative (Negative) 02/08/24 13:30 Urine Nitrate Negative (Negative) 02/08/24 13:30 Urine Bilirubin Negative (Negative) 02/08/24 13:30 Urine Urobilinogen 0.2 mg/dL (Negative) 02/08/24 13:30 Ur Leukocyte Esterase Negative (Negative) 02/08/24 13:30 Urine RBC 0-2 /hpf (0-2) 02/08/24 13:30 Urine WBC 0-5 /hpf (0-5) 02/08/24 13:30 Ur Squamous Epith Cells 0-5 /hpf (0-5) 02/08/24 13:30 Amorphous Sediment Not Reportable 02/08/24 13:30 Urine Bacteria None seen /hpf (NONE) 02/08/24 13:30 Hyaline Casts 0-4 /lpf H 02/08/24 13:30 All radiology interpretation(s) finalized by discharge Discharge Plan Discharge Patient Disposition: Home Clinical Impression: Abdominal pain, Constipation Condition: Stable Prescriptions: No Action albuterol sulfate [ProAir HFA] 90 mcg/actuation HFA aerosol inhaler 2 puff INHALATION Q6H PRN Trelegy Ellipta 100-62.5-25 mcg blister with device 1 inh inhalation DAILY lactulose 20 gram/30 mL solution 20 g PO .COMPLEX MDD 180 ml Qty: 1200 0RF Rx Instructions: 30 mL Q2H PRN until bowel movement, repeat every 72 hours as needed cetirizine [Zyrtec] 10 mg tablet 10 mg PO QAM Qty: 90 0RF montelukast 10 mg tablet 10 mg PO BEDTIME Qty: 90 0RF azithromycin [Zithromax Z-Channing] 250 mg tablet See Rx Instructions PO .COMPLEX Qty: 6 0RF Rx Instructions: For 250 mg dose pack: take 500 mg today (day 1), then 250 mg for 4 days (days 2-5) PO oxycodone 15 mg tablet 30 mg PO Q4H MDD 6 tabs PRN (Reason: pain) 30 Days Qty: 180 0RF alprazolam 0.5 mg tablet 0.5 mg PO TID PRN (Reason: anxiety) Qty: 90 0RF citalopram 20 mg tablet 20 mg PO DAILY Qty: 30 3RF triamcinolone acetonide 0.1 % cream 1 applic topical TID PRN (Reason: itching) Qty: 15 0RF ondansetron HCl 8 mg tablet 8 mg PO TID PRN (Reason: nausea and vomiting) Qty: 90 3RF Rx Instructions: 340B Discharge Orders: Discharge ED (Routine); Ordered 02/08/24 Ordered By: Yvonne Mario Referrals: Ajay Linares MD [Primary Care Provider] - 1-3 days Discharge Diet: Advance as tolerated Discharge Activity: Resume usual activity Patient Instructions: Abdominal Pain (ED) Coding Level of Care Code ED Treatment Technician for Kiersten Sinclair
[2024-02-08] MEDS: ondansetron 2 mg/ML SDV 2 mL 4 MG IVP (13:28)
[2024-02-08 13:29] LABS: Basophils % 0.2 %; Eosinophils % 0.6 %; Hematocrit 39.9 % (37-53); Lymphocytes # 1.9 10^3/uL (0.8-4.8); Lymphocytes % 30.4 %; Mean Corpuscular HGB Conc 32.8 g/dL (30-55); Mean Corpuscular Hemoglobin 31.7 pg (27-33); Mean Corpuscular Volume 96.6 fl (82-101); Mean Platelet Volume 8.8 fL (7.4-10.4); Monocytes # 0.4 10^3/uL (0.2-0.9); Neutrophils # 3.89 10^3/uL (1.8-7.7); Neutrophils % 61.6 %; Nucleated Red Blood Cells % 0 %; Platelet Count 203 10^3/cmm (157-399); Red Blood Count 4.13 10^6/uL (3.85-5.65); Red Cell Distribution Width 13.1 % (12.1-15.1); White Blood Count 6.31 10^3/uL (3.29-11.43)
[2024-02-08 13:34] VITALS: BP 130/74; PULSE 66; RESP 16; O2SAT 98
[2024-02-08 13:34] LABS: Bilirubin Urine Negative (Negative); Blood Urine Negative (Negative); Glucose Urine UA Negative (Normal); Ketones Urine Negative (Negative); Leukocyte Esterase Urine Negative (Negative); Nitrate Urine Negative (Negative); Protein Urine Negative (Negative); Specific Gravity, Urine 1.007 (1.005-1.030); Urine Appearance Clear (CLEAR); Urine Color Yellow (Yellow); Urobilinogen Urine 0.2 mg/dL (Negative)
[2024-02-08 13:36] LABS: Add Urine Microscopic? YES; Bacteria Urine None Seen /hpf; Hyaline Casts Urine 0-4 /lpf; RBC Urine 0-2 /hpf (0-2); Squamous Epithelial Cell Urine 0-5 /hpf (0-5); WBC Urine 0-5 /hpf (0-5)
[2024-02-08 13:46] LABS: Alanine Aminotransferase 41 U/L (0-41); Albumin Level 4.3 g/dL (3.5-5.2); Alkaline Phosphatase 145 U/L (40-130); Aspartate Amino Transferase 39 U/L (0-40); Blood Urea Nitrogen 16 mg/dL (8-23); Calcium 8.4 mg/dL (8.5-10.5); Carbon Dioxide 25 mmol/L (22-29); Chloride 100 mmol/L (98-107); Creatinine Clr Calc Pharmacy 51.0977; Globulin 2.1 g/dL (1.3-4.6); Glucose 106 mg/dL (65-115); Lipase 15 U/L (13-60); Osmolality Calculated 286 mOsm/kg (285-295); Sodium 137 mmol/L (136-145); Total Bilirubin 0.2 mg/dL (0.15-1.2); Total Protein 6.4 g/dL (6.6-8.7)
[2024-02-08 13:47] LABS: Anion Gap 16.6 (5-19); Potassium 4.6 mmol/L (3.5-5.1)
[2024-02-08] MEDS: iohexol 350 mg/mL 500 mL Btl (per mL) IV (14:02)
[2024-02-08 15:04] VITALS: BP 149/72; PULSE 69; RESP 14; O2SAT 97
== END 2024-02-08 15:16 | disposition home or self-care (01) ==
PROVIDERS: Emergency Provider Emergency Medicine; PCP Internal Medicine Medical Oncology
DX: K59.00 Constipation, unspecified (principal); Z87.891 Personal history of nicotine dependence
CPT/HCPCS: 74177; 80053; 81001; 83690; 85025; 96374; 99285; J2405

== ENCOUNTER 2024-02-16 09:17 | Oncology outpatient (recurring) (ONCR) | payer OTHER, SELFPAY ==
[2024-02-16 09:42] LABS: Basophils % 0.1 %; Eosinophils % 0.1 %; Hematocrit 40.4 % (37-53); Lymphocytes # 1.4 10^3/uL (0.8-4.8); Lymphocytes % 19.5 %; Mean Corpuscular HGB Conc 33.4 g/dL (30-55); Mean Corpuscular Hemoglobin 32.1 pg (27-33); Mean Platelet Volume 8.9 fL (7.4-10.4); Monocytes # 0.4 10^3/uL (0.2-0.9); Monocytes % 5.7 %; Neutrophils # 5.49 10^3/uL (1.8-7.7); Neutrophils % 74.3 %; Nucleated Red Blood Cells % 0 %; Platelet Count 190 10^3/cmm (157-399); Red Blood Count 4.21 10^6/uL (3.85-5.65); Red Cell Distribution Width 13.2 % (12.1-15.1); White Blood Count 7.39 10^3/uL (3.29-11.43)
[2024-02-16 09:57] LABS: Alanine Aminotransferase 40 U/L (0-41); Albumin Level 4.2 g/dL (3.5-5.2); Alkaline Phosphatase 144 U/L (40-130); Anion Gap 13.3 (5-19); Aspartate Amino Transferase 34 U/L (0-40); Blood Urea Nitrogen 12 mg/dL (8-23); Calcium 8.2 mg/dL (8.5-10.5); Carbon Dioxide 27 mmol/L (22-29); Chloride 103 mmol/L (98-107); Creatinine Clr Calc Pharmacy 69.8889; Globulin 2.6 g/dL (1.3-4.6); Glucose 115 mg/dL (65-115); Immunoglobulin IGG 323 mg/dL (700-1600); Osmolality Calculated 289 mOsm/kg (285-295); Potassium 4.3 mmol/L (3.5-5.1); Sodium 139 mmol/L (136-145); Total Bilirubin 0.3 mg/dL (0.15-1.2); Total Protein 6.8 g/dL (6.6-8.7)
[2024-02-16 09:58] LABS: Immunoglobulin IGM < 25 mg/dL (40-230)
[2024-02-16 10:10] LABS: Immunoglobulin IGA 1079 mg/dL (70-400)
[2024-02-16] MEDS: denosumab 120 mg SDV SUBCUT (12:55)
[2024-02-17 06:15] LABS: PROTEIN, TOTAL 6.5 g/dL (6.1-8.1)
[2024-02-20 10:58] LABS: ABNORMAL PROTEIN BAND 1 0.7 g/dL (NONE DETECTED); ALBUMIN 3.8 g/dL (3.8-4.8); ALPHA 1 GLOBULIN 0.3 g/dL (0.2-0.3); ALPHA 2 GLOBULIN 0.8 g/dL (0.5-0.9); BETA 1 GLOBULIN 0.4 g/dL (0.4-0.6); BETA 2 GLOBULIN 0.3 g/dL (0.2-0.5)
[2024-02-22 11:49] LABS: KAPPA LIGHT CHAIN, FREE, SERUM 35.9 mg/L (3.3-19.4); KAPPA/LAMBDA LIGHT CHAINS FREE 10.26 (0.26-1.65); LAMBDA LIGHT CHAIN, FREE, SERU 3.5 mg/L (5.7-26.3)
== END 2024-03-03 23:59 | disposition home or self-care (01) ==
PROVIDERS: Internal Medicine; PCP Internal Medicine Medical Oncology; Visit Provider Internal Medicine Medical Oncology
DX: C90.00 Multiple myeloma not having achieved remission (principal); C79.51 Secondary malignant neoplasm of bone; F41.9 Anxiety disorder, unspecified; Z87.891 Personal history of nicotine dependence; Z79.891 Long term (current) use of opiate analgesic; Z79.899 Other long term (current) drug therapy; Z92.3 Personal history of irradiation; Z92.21 Personal history of antineoplastic chemotherapy; G89.3 Neoplasm related pain (acute) (chronic)
CPT/HCPCS: 36415; 80053; 82784; 83883; 84155; 84165; 85025; 96372; 99213; J0897

== ENCOUNTER 2024-03-15 09:15 | Oncology outpatient (recurring) (ONCR) | payer OTHER, SELFPAY ==
[2024-03-15 09:58] LABS: Basophils % 0.2 %; Eosinophils % 0.2 %; Hematocrit 39.6 % (37-53); Lymphocytes # 0.7 10^3/uL (0.8-4.8); Mean Corpuscular HGB Conc 33.6 g/dL (30-55); Mean Corpuscular Hemoglobin 32.7 pg (27-33); Mean Corpuscular Volume 97.3 fl (82-101); Mean Platelet Volume 9.2 fL (7.4-10.4); Monocytes # 0.3 10^3/uL (0.2-0.9); Monocytes % 6.6 %; Neutrophils # 3.16 10^3/uL (1.8-7.7); Neutrophils % 76.8 %; Nucleated Red Blood Cells % 0 %; Platelet Count 150 10^3/cmm (157-399); Red Blood Count 4.07 10^6/uL (3.85-5.65); Red Cell Distribution Width 13.6 % (12.1-15.1); White Blood Count 4.12 10^3/uL (3.29-11.43)
[2024-03-15 10:14] LABS: Alanine Aminotransferase 64 U/L (0-41); Albumin Level 3.9 g/dL (3.5-5.2); Alkaline Phosphatase 182 U/L (40-130); Aspartate Amino Transferase 29 U/L (0-40); Blood Urea Nitrogen 9 mg/dL (8-23); Calcium 8.2 mg/dL (8.5-10.5); Carbon Dioxide 23 mmol/L (22-29); Chloride 101 mmol/L (98-107); Creatinine Clr Calc Pharmacy 69.7207; Glucose 121 mg/dL (65-115); Immunoglobulin IGG 313 mg/dL (700-1600); Osmolality Calculated 280 mOsm/kg (285-295); Sodium 135 mmol/L (136-145); Total Bilirubin 0.2 mg/dL (0.15-1.2); Total Protein 6.9 g/dL (6.6-8.7)
[2024-03-15 10:38] LABS: Immunoglobulin IGA 984 mg/dL (70-400); Immunoglobulin IGM < 25 mg/dL (40-230)
[2024-03-15 10:39] LABS: Anion Gap 14.9 (5-19); Lactate Dehydrogenase 179 U/L (135-225); Potassium 3.9 mmol/L (3.5-5.1)
[2024-03-16 05:44] LABS: PROTEIN, TOTAL 6.6 g/dL (6.1-8.1)
[2024-03-16 12:50] LABS: KAPPA LIGHT CHAIN, FREE, SERUM 38.7 mg/L (3.3-19.4); KAPPA/LAMBDA LIGHT CHAINS FREE 9.92 (0.26-1.65); LAMBDA LIGHT CHAIN, FREE, SERU 3.9 mg/L (5.7-26.3)
[2024-03-16 20:25] LABS: ABNORMAL PROTEIN BAND 1 0.7 g/dL (NONE DETECTED); ALBUMIN 3.8 g/dL (3.8-4.8); ALPHA 1 GLOBULIN 0.3 g/dL (0.2-0.3); ALPHA 2 GLOBULIN 0.8 g/dL (0.5-0.9); BETA 1 GLOBULIN 0.4 g/dL (0.4-0.6); BETA 2 GLOBULIN 0.3 g/dL (0.2-0.5)
== END 2024-04-03 23:59 | disposition home or self-care (01) ==
PROVIDERS: Internal Medicine; PCP Internal Medicine Medical Oncology; Visit Provider Internal Medicine Medical Oncology
DX: C90.00 Multiple myeloma not having achieved remission (principal); C79.51 Secondary malignant neoplasm of bone; Z87.891 Personal history of nicotine dependence; Z79.891 Long term (current) use of opiate analgesic; Z79.899 Other long term (current) drug therapy; Z92.3 Personal history of irradiation; Z92.21 Personal history of antineoplastic chemotherapy; D47.2 Monoclonal gammopathy
CPT/HCPCS: 36415; 80053; 82784; 83615; 83883; 84155; 84165; 85025; 99214

== ENCOUNTER 2024-04-28 08:03 | Emergency (ER) | payer OTHER, MEDICARE, SELFPAY ==
[2024-04-28] VITALS (10 sets, daily range): BP systolic 121–148; BP diastolic 70–98; PULSE 60–93; RESP 14–17; TEMP 36.4; O2SAT 95–100; BMI 23.7
--- NOTE | 2024-04-28 08:25 | W.ED.DIZZY ---
Documented by User: MAN Ruelas STDNT 04/28/24 11:53 HPI - Dizziness General: Chief Complaint: Dizziness Stated Complaint: dizzy Time Seen by Provider: 04/28/24 08:06 History of Present Illness: HPI Narrative: Patient is an 79-year-old male with past medical history of NE and multiple myeloma presenting after waking up at 0200 this morning feeling dizzy and unable to walk. He states that he has been having dizzy spells intermittently over the past several weeks and his doctor has been planning on doing a brain scan to look for mets. He notes change in vision over the last several months with blurriness bilaterally, was evaluated in [place] and they told him he needs new glasses. Has been having intermittent mild headaches, endorses one now. Feeling weak all over particularly his legs. Notes bilateral lower facial numbness as well as over the back of his head and his neck. Denies abdominal pain, shortness of breath, chest pain. Related Data Previous Rx's ?Medication ?Instructions ?Recorded cetirizine 10 mg tablet (Zyrtec) 10 mg PO QAM #90 tabs 11/10/22 triamcinolone acetonide 0.1 % 1 applic topical TID PRN itching 06/06/23 topical cream #15 grams ondansetron HCl 8 mg tablet 8 mg PO TID PRN nausea and 06/30/23 vomiting #90 tabs aspirin 81 mg tablet,delayed 81 mg PO DAILY #30 tabs 04/28/24 release atorvastatin 40 mg tablet 40 mg PO DAILY #30 tabs 04/28/24 clopidogrel 75 mg tablet 75 mg PO DAILY #30 tabs 04/28/24 meclizine 25 mg tablet 25 mg PO QID PRN dizziness #20 tabs 04/28/24 alprazolam 0.5 mg tablet 0.5 mg PO TID PRN anxiety #90 tabs 05/07/24 oxycodone 30 mg tablet 15 mg (1/2 x 30 mg) PO Q4H PRN 05/07/24 pain 30 days #240 tabs Allergies Allergy/AdvReac Type Severity Reaction Status Date / Time dexlansoprazole (From Allergy Intermediate ALGY-Swell Verified 03/15/24 09:21 Dexilant) Lip/Tongue/Throat denosumab (From Prolia) Allergy Mild ALGY-Rash Verified 03/15/24 09:21 cephalexin (From Keflex) Allergy ADR-Gastrointestinal Verified 03/15/24 09:21 Upset morphine Allergy ADR-Itching Verified 03/15/24 09:21 prednisone Allergy ADR-Anxiety Verified 03/15/24 09:21 valacyclovir Allergy ADR-Nausea Verified 03/15/24 09:21 [facility] PFS: Medical History History of agent Atalissa exposure History of pulmonary embolism History of NE (myocardial infarction) Abdominal pain Chronic pain Post traumatic stress disorder Multiple myeloma not having achieved remission Surgical History History of lobectomy of lung Right lung History of cholecystectomy 2004 History of partial thyroidectomy 1990 History of bone marrow biopsy 01/30/2012 04/02/2008 History of excision of mass Right side of neck, benign History of colonoscopy Family History Father Lung disease COPD - smoker Brother Cancer Melanoma Denies family history of Diabetes CAD (coronary artery disease) Clotting disorder Dementia Hyperlipidemia Psychiatric illness Chronic kidney disease (CKD) Suicide Anesthesia complication Bleeding disorder Hypertension Stroke Social History Smoking and tobacco/nicotine status: never used tobacco/nicotine Quit status (tobacco/nicotine): has quit using Year quit tobacco: 1979 Former quit date comment: Smoked for 30 years Substance/Drug Use: never Physical Exam Const: COMMON NORMALS: no acute distress, patient oriented x3 and alert HENMT: COMMON NORMALS: normocephalic and atraumatic HEAD & SCALP: normocephalic and atraumatic Eye: COMMON NORMALS: Equal, round and reactive pupils present, EOMs intact bilaterally and conjunctivae normal CONJUNCTIVA: Yes conjunctivae normal PUPIL: Yes Equal, round and reactive pupils present Neck/C-Spine: COMMON NORMALS: no meningeal signs Resp: COMMON NORMALS: normal respiratory effort and clear to auscultation bilaterally EFFORT & INSPECTION: Yes able to speak in complete sentences and Yes symmetric chest movement AUSCULTATION: clear to auscultation bilaterally Cardio: COMMON NORMALS: regular rate, regular rhythm and No murmurs present (Cardio) RATE: regular rate RHYTHM: regular rhythm GI: COMMON NORMALS: Normal to inspection, nondistended, normoactive bowel sounds present, Soft to palpation, non-tender and No hepatosplenomegaly present PALPATION: Yes Soft to palpation and Yes No hepatosplenomegaly present Neuro: COMMON NORMALS: patient oriented x3, CN's II-XII intact bilaterally, moves all extremities, no focal motor deficits, no sensory deficits noted and gait normal SENSORIUM/ORIENTATION: Yes alert MENINGEAL SIGNS: Yes no meningeal signs COORDINATION/BALANCE: [id number] test normal GAIT: Yes Normal gait present MOTOR EXAM: 5/5 motor strength present throughout and Pronator motor function not present COORDINATION: [id number] test normal Course Vital Signs: Vital signs: Vital Signs Temperature 97.6 F 04/28/24 08:05 Pulse Rate 74 04/28/24 12:17 Respiratory Rate 14 04/28/24 10:27 Blood Pressure 121/78 04/28/24 12:17 Pulse Oximetry 95 04/28/24 12:17 Oxygen Delivery Me thod Room Air 04/28/24 08:05 MDM - Dizziness Medical Decision Making Patient is an 79-year-old male with past medical history of NE and multiple myeloma presenting after waking up at 0200 this morning feeling dizzy, unable to walk, and disoriented. On arrival patient without focal neurodeficits, alert and oriented x 4. EKGs and troponin were unremarkable. No leukocytosis or electrolyte abnormalities. Urinalysis was normal. Head CT without acute abnormalities. Dizziness improved over the course of his stay. Patient ambulated without issues and endorsed feeling much improved. Out of an abundance of caution, we will start aspirin, Plavix and atorvastatin. Encourage close follow-up with his PCP and ordered outpatient MRI brain to further evaluate given his history of multiple myeloma. Prescribed meclizine as well in case dizziness returns. Lives alone, his daughter does check on him daily. Lab Data 04/28/24 08:46 04/28/24 08:[address] 04/28/24 08:31 IMPRESSION: No acute intracranial abnormality. Chronic changes as above. Laboratory Results WBC 4.49 10^3/uL (3.29-11.43) 04/28/24 08:46 RBC 3.90 10^6/uL (3.85-5.65) 04/28/24 08:46 Hgb 12.70 g/dL (11.27-16.99) 04/28/24 08:46 Hct 38.2 % (37-53) 04/28/24 08:46 MCV 97.9 fl (82-101) 04/28/24 08:46 MCH 32.6 pg (27-33) 04/28/24 08:46 MCHC 33.2 g/dL (30-55) 04/28/24 08:46 RDW 13.4 % (12.1-15.1) 04/28/24 08:46 Plt Count 187 10^3/cmm (157-399) 04/28/24 08:46 MPV 9.3 fL (7.4-10.4) 04/28/24 08:46 Neut % (Auto) 70.2 % 04/28/24 08:46 Lymph % (Auto) 22.5 % 04/28/24 08:46 [place] % (Auto) 6.5 % 04/28/24 08:46 Eos % (Auto) 0.4 % 04/28/24 08:46 Baso % (Auto) 0.2 % 04/28/24 08:46 Neut # (Auto) 3.15 10^3/uL (1.8-7.7) 04/28/24 08:46 Lymph # (Auto) 1.0 10^3/uL (0.8-4.8) 04/28/24 08:46 [place] # (Auto) 0.3 10^3/uL (0.2-0.9) 04/28/24 08:46 Eos # (Auto) 0.0 10^3/uL (0.0-0.8) 04/28/24 08:46 Baso # (Auto) 0.0 10^3/uL (0.0-0.1) 04/28/24 08:46 Nucleated RBC % (auto) 0 % 04/28/24 08:46 Nucleated RBCs # 0.0 /100WBC 04/28/24 08:46 Sodium 139 mmol/L (136-145) 04/28/24 08:46 Potassium 4.4 mmol/L (3.5-5.1) 04/28/24 08:46 Chloride 104 mmol/L (98-107) 04/28/24 08:46 Carbon Dioxide 25 mmol/L (22-29) 04/28/24 08:46 Anion Gap 14.4 (5-19) 04/28/24 08:46 BUN 13 mg/dL (8-23) 04/28/24 08:46 Creatinine 1.0 mg/dL (0.7-1.2) 04/28/24 08:46 GFR Calculation Not Reportable 04/28/24 08:46 Glucose 124 mg/dL (65-115) H 04/28/24 08:46 POC Glucose 120 mg/dL (70-110) H 04/28/24 10:19 Calculated Osmolality 290 mOsm/kg (285-295) 04/28/24 08:46 Calcium 8.3 mg/dL (8.5-10.5) L 04/28/24 08:46 Magnesium 2.4 mg/dL (1.7-2.3) H 04/28/24 08:46 Total Bilirubin 0.2 mg/dL (0.15-1.2) 04/28/24 08:46 AST 17 U/L (0-40) 04/28/24 08:46 ALT 20 U/L (0-41) 04/28/24 08:46 Alkaline Phosphatase 104 U/L (40-130) 04/28/24 08:46 Total Protein 6.2 g/dL (6.6-8.7) L 04/28/24 08:46 Albumin 3.9 g/dL (3.5-5.2) 04/28/24 08:46 Globulin 2.3 g/dL (1.3-4.6) 04/28/24 08:46 Urine Color Yellow (Yellow) 04/28/24 10:14 Urine Appearance Clear (CLEAR) 04/28/24 10:14 Urine pH 7.0 (5-7) 04/28/24 10:14 Ur Specific Evans 1.014 (1.005-1.030) 04/28/24 10:14 Urine Protein Negative (Negative) 04/28/24 10:14 Urine Glucose (UA) Negative (Normal) 04/28/24 10:14 Urine Ketones Negative (Negative) 04/28/24 10:14 Urine Blood Negative (Negative) 04/28/24 10:14 Urine Nitrate Negative (Negative) 04/28/24 10:14 Urine Bilirubin Negative (Negative) 04/28/24 10:14 Urine Urobilinogen 0.2 mg/dL (Negative) 04/28/24 10:14 Ur Leukocyte Esterase Negative (Negative) 04/28/24 10:14 Urine RBC 0-2 /hpf (0-2) 04/28/24 10:14 Urine WBC 0-5 /hpf (0-5) 04/28/24 10:14 Ur Squamous Epith Cells 0-5 /hpf (0-5) 04/28/24 10:14 Amorphous Sediment Not Reportable 04/28/24 10:14 Urine Bacteria None seen /hpf (NONE) 04/28/24 10:14 Hyaline Casts 0-4 /lpf H 04/28/24 10:14 Discharge Plan Discharge Patient Disposition: Home Clinical Impression: Acute labyrinthitis, Multiple myeloma not having achieved remission, Secondary malignant neoplasm of bone Condition: Stable Prescriptions: New aspirin 81 mg tablet,delayed release (DR/EC) 81 mg PO DAILY Qty: 30 0RF atorvastatin 40 mg tablet 40 mg PO DAILY Qty: 30 0RF clopidogrel 75 mg tablet 75 mg PO DAILY Qty: 30 0RF meclizine 25 mg tablet 25 mg PO QID PRN (Reason: dizziness) Qty: 20 0RF No Action cetirizine [Zyrtec] 10 mg tablet 10 mg PO QAM Qty: 90 0RF triamcinolone acetonide 0.1 % cream 1 applic topical TID PRN (Reason: itching) Qty: 15 0RF ondansetron HCl 8 mg tablet 8 mg PO TID PRN (Reason: nausea and vomiting) Qty: 90 3RF Rx Instructions: 340B oxycodone 30 mg tablet 15 mg PO Q4H PRN (Reason: pain) 30 Days Qty: 240 0RF Rx Instructions: take two 15mg tab Q4H as needed alprazolam 0.5 mg tablet 0.5 mg PO TID PRN (Reason: anxiety) Qty: 90 2RF Discharge Orders: Discharge ED (Routine); Ordered 04/28/24 Ordered By: Phillip Baez Referrals: Ajay Linares MD [Primary Care Provider] - Discharge Diet: Usual diet Discharge Activity: Resume usual activity Patient Instructions: Opioid Safety, Pain Management Activity Restrictions/Additional Instructions: Thank you for choosing [facility] for your healthcare needs today. It is very important that you follow up as instructed or that you return to the Emergency Department should you have concerns or if your condition changes or worsens in any way. You were seen in the emergency room with complaints of dizziness. Your symptoms resolved while here CT of your head was negative. We do recommend you start atorvastatin aspirin and clopidogrel will set you up for an outpatient MRI of the head. Print Language: Turkish Coding Level of Care Code ED Job Service Specialist for [employer]g Fwd Documented by User: Phillip Baez DO 05/09/24 11:56 HPI - Dizziness General: Chief Complaint: Dizziness Stated Complaint: dizzy Time Seen by Provider: 04/28/24 08:06 Related Data Previous Rx's ?Medication ?Instructions ?Recorded cetirizine 10 mg tablet (Zyrtec) 10 mg PO QAM #90 tabs 11/10/22 triamcinolone acetonide 0.1 % 1 applic topical TID PRN itching 06/06/23 topical cream #15 grams ondansetron HCl 8 mg tablet 8 mg PO TID PRN nausea and 06/30/23 vomiting #90 tabs aspirin 81 mg tablet,delayed 81 mg PO DAILY #30 tabs 04/28/24 release atorvastatin 40 mg tablet 40 mg PO DAILY #30 tabs 04/28/24 clopidogrel 75 mg tablet 75 mg PO DAILY #30 tabs 04/28/24 meclizine 25 mg tablet 25 mg PO QID PRN dizziness #20 tabs 04/28/24 alprazolam 0.5 mg tablet 0.5 mg PO TID PRN anxiety #90 tabs 05/07/24 oxycodone 30 mg tablet 15 mg (1/2 x 30 mg) PO Q4H PRN 05/07/24 pain 30 days #240 tabs Allergies Allergy/AdvReac Type Severity Reaction Status Date / Time dexlansoprazole (From Allergy Intermediate BRYAN-Ruth Annll Verified 03/15/24 09:21 Dexilant) Lip/Tongue/Throat denosumab (From Prolia) Allergy Mild ALGY-Rash Verified 03/15/24 09:21 cephalexin (From Keflex) Allergy ADR-Gastrointestinal Verified 03/15/24 09:21 Upset morphine Allergy ADR-Itching Verified 03/15/24 09:21 prednisone Allergy ADR-Anxiety Verified 03/15/24 09:21 valacyclovir Allergy ADR-Nausea Verified 03/15/24 09:21 [facility] PFSH: Medical History History of agent Atalissa exposure History of pulmonary embolism History of NE (myocardial infarction) Abdominal pain Chronic pain Post traumatic stress disorder Multiple myeloma not having achieved remission Surgical History History of lobectomy of lung Right lung History of cholecystectomy 2004 History of partial thyroidectomy 1990 History of bone marrow biopsy 01/30/2012 04/02/2008 History of excision of mass Right side of neck, benign History of colonoscopy Family History Father Lung disease COPD - smoker Brother Cancer Melanoma Denies family history of Diabetes CAD (coronary artery disease) Clotting disorder Dementia Hyperlipidemia Psychiatric illness Chronic kidney disease (CKD) Suicide Anesthesia complication Bleeding disorder Hypertension Stroke Social History Smoking and tobacco/nicotine status: never used tobacco/nicotine Quit status (tobacco/nicotine): has quit using Year quit tobacco: 1979 Former quit date comment: Smoked for 30 years Substance/Drug Use: never Course Vital Signs: Vital signs: Vital Signs Temperature 97.6 F 04/28/24 08:05 Pulse Rate 74 04/28/24 12:17 Respiratory Rate 14 04/28/24 10:27 Blood Pressure 121/78 04/28/24 12:17 Pulse Oximetry 95 04/28/24 12:17 Oxygen Delivery Me thod Room Air 04/28/24 08:05 MDM - Dizziness Medical Decision Making Patient is an 79-year-old male with past medical history of NE and multiple myeloma presenting after waking up at 0200 this morning feeling dizzy, unable to walk, and disoriented. On arrival patient without focal neurodeficits, alert and oriented x 4. EKGs and troponin were unremarkable. No leukocytosis or electrolyte abnormalities. Urinalysis was normal. Head CT without acute abnormalities. Dizziness improved over the course of his stay. Patient ambulated without issues and endorsed feeling much improved. Out of an abundance of caution, we will start aspirin, Plavix and atorvastatin. Encourage close follow-up with his PCP and ordered outpatient MRI brain to further evaluate given his history of multiple myeloma. Prescribed meclizine as well in case dizziness returns. Lives alone, his daughter does check on him daily. Patient seen and evaluated in conjunction with Dr. Reyes. Agree with history assessment and plan. Lab Data 04/28/24 08:46 04/28/24 08:[address] 04/28/24 08:31 IMPRESSION: No acute intracranial abnormality. Chronic changes as above. Laboratory Results WBC 4.49 10^3/uL (3.29-11.43) 04/28/24 08:46 RBC 3.90 10^6/uL (3.85-5.65) 04/28/24 08:46 Hgb 12.70 g/dL (11.27-16.99) 04/28/24 08:46 Hct 38.2 % (37-53) 04/28/24 08:46 MCV 97.9 fl (82-101) 04/28/24 08:46 MCH 32.6 pg (27-33) 04/28/24 08:46 MCHC 33.2 g/dL (30-55) 04/28/24 08:46 RDW 13.4 % (12.1-15.1) 04/28/24 08:46 Plt Count 187 10^3/cmm (157-399) 04/28/24 08:46 MPV 9.3 fL (7.4-10.4) 04/28/24 08:46 Neut % (Auto) 70.2 % 04/28/24 08:46 Lymph % (Auto) 22.5 % 04/28/24 08:46 [place] % (Auto) 6.5 % 04/28/24 08:46 Eos % (Auto) 0.4 % 04/28/24 08:46 Baso % (Auto) 0.2 % 04/28/24 08:46 Neut # (Auto) 3.15 10^3/uL (1.8-7.7) 04/28/24 08:46 Lymph # (Auto) 1.0 10^3/uL (0.8-4.8) 04/28/24 08:46 [place] # (Auto) 0.3 10^3/uL (0.2-0.9) 04/28/24 08:46 Eos # (Auto) 0.0 10^3/uL (0.0-0.8) 04/28/24 08:46 Baso # (Auto) 0.0 10^3/uL (0.0-0.1) 04/28/24 08:46 Nucleated RBC % (auto) 0 % 04/28/24 08:46 Nucleated RBCs # 0.0 /100WBC 04/28/24 08:46 Sodium 139 mmol/L (136-145) 04/28/24 08:46 Potassium 4.4 mmol/L (3.5-5.1) 04/28/24 08:46 Chloride 104 mmol/L (98-107) 04/28/24 08:46 Carbon Dioxide 25 mmol/L (22-29) 04/28/24 08:46 Anion Gap 14.4 (5-19) 04/28/24 08:46 BUN 13 mg/dL (8-23) 04/28/24 08:46 Creatinine 1.0 mg/dL (0.7-1.2) 04/28/24 08:46 GFR Calculation Not Reportable 04/28/24 08:46 Glucose 124 mg/dL (65-115) H 04/28/24 08:46 POC Glucose 120 mg/dL (70-110) H 04/28/24 10:19 Calculated Osmolality 290 mOsm/kg (285-295) 04/28/24 08:46 Calcium 8.3 mg/dL (8.5-10.5) L 04/28/24 08:46 Magnesium 2.4 mg/dL (1.7-2.3) H 04/28/24 08:46 Total Bilirubin 0.2 mg/dL (0.15-1.2) 04/28/24 08:46 AST 17 U/L (0-40) 04/28/24 08:46 ALT 20 U/L (0-41) 04/28/24 08:46 Alkaline Phosphatase 104 U/L (40-130) 04/28/24 08:46 Total Protein 6.2 g/dL (6.6-8.7) L 04/28/24 08:46 Albumin 3.9 g/dL (3.5-5.2) 04/28/24 08:46 Globulin 2.3 g/dL (1.3-4.6) 04/28/24 08:46 Urine Color Yellow (Yellow) 04/28/24 10:14 Urine Appearance Clear (CLEAR) 04/28/24 10:14 Urine pH 7.0 (5-7) 04/28/24 10:14 Ur Specific Evans 1.014 (1.005-1.030) 04/28/24 10:14 Urine Protein Negative (Negative) 04/28/24 10:14 Urine Glucose (UA) Negative (Normal) 04/28/24 10:14 Urine Ketones Negative (Negative) 04/28/24 10:14 Urine Blood Negative (Negative) 04/28/24 10:14 Urine Nitrate Negative (Negative) 04/28/24 10:14 Urine Bilirubin Negative (Negative) 04/28/24 10:14 Urine Urobilinogen 0.2 mg/dL (Negative) 04/28/24 10:14 Ur Leukocyte Esterase Negative (Negative) 04/28/24 10:14 Urine RBC 0-2 /hpf (0-2) 04/28/24 10:14 Urine WBC 0-5 /hpf (0-5) 04/28/24 10:14 Ur Squamous Epith Cells 0-5 /hpf (0-5) 04/28/24 10:14 Amorphous Sediment Not Reportable 04/28/24 10:14 Urine Bacteria None seen /hpf (NONE) 04/28/24 10:14 Hyaline Casts 0-4 /lpf H 04/28/24 10:14 All radiology interpretation(s) finalized by discharge Discharge Plan Discharge Patient Disposition: Home Clinical Impression: Acute labyrinthitis, Multiple myeloma not having achieved remission, Secondary malignant neoplasm of bone Condition: Stable Prescriptions: New aspirin 81 mg tablet,delayed release (DR/EC) 81 mg PO DAILY Qty: 30 0RF atorvastatin 40 mg tablet 40 mg PO DAILY Qty: 30 0RF clopidogrel 75 mg tablet 75 mg PO DAILY Qty: 30 0RF meclizine 25 mg tablet 25 mg PO QID PRN (Reason: dizziness) Qty: 20 0RF No Action cetirizine [Zyrtec] 10 mg tablet 10 mg PO QAM Qty: 90 0RF triamcinolone acetonide 0.1 % cream 1 applic topical TID PRN (Reason: itching) Qty: 15 0RF ondansetron HCl 8 mg tablet 8 mg PO TID PRN (Reason: nausea and vomiting) Qty: 90 3RF Rx Instructions: 340B oxycodone 30 mg tablet 15 mg PO Q4H PRN (Reason: pain) 30 Days Qty: 240 0RF Rx Instructions: take two 15mg tab Q4H as needed alprazolam 0.5 mg tablet 0.5 mg PO TID PRN (Reason: anxiety) Qty: 90 2RF Discharge Orders: Discharge ED (Routine); Ordered 04/28/24 Ordered By: Phillip Baez Referrals: Ajay Linares MD [Primary Care Provider] - Discharge Diet: Usual diet Discharge Activity: Resume usual activity Patient Instructions: Opioid Safety, Pain Management Activity Restrictions/Additional Instructions: Thank you for choosing [facility] for your healthcare needs today. It is very important that you follow up as instructed or that you return to the Emergency Department should you have concerns or if your condition changes or worsens in any way. You were seen in the emergency room with complaints of dizziness. Your symptoms resolved while here CT of your head was negative. We do recommend you start atorvastatin aspirin and clopidogrel will set you up for an outpatient MRI of the head. Print Language: Turkish Coding Level of Care Code ED Job Service Specialist for Kiersten Sinclair
--- NOTE | 2024-04-28 08:31 | CTR_ITS ---
PROCEDURE INFORMATION: Exam: CT Head Without And With Contrast Exam date and time: 04/28/2024 9:33 AM Age: 79 years old Clinical indication: Dizziness; Additional info: Dizzy spells, HX multiple myeloma TECHNIQUE: Imaging protocol: Computed tomography of the head without and with contrast. Radiation optimization: All CT scans at this facility use at least one of these dose optimization techniques: automated exposure control; mA and/or kV adjustment per patient size (includes targeted exams where dose is matched to clinical indication); or iterative reconstruction. Contrast material: OMNIPAQUE 350; Contrast volume: 100 ml; Contrast route: INTRAVENOUS (IV); COMPARISON: MR head wo/w con [id number] 05/27/2022 2:18 PM RADIATION DOSE METRICS: Total DLP (mGy-cm): 2274.58 FINDINGS: Brain: Underlying brain parenchymal atrophy.. No hemorrhage. Sequela of chronic microvascular ischemic changes of the white matter. No mass effect. Abnormal intracranial enhancement. Cerebral ventricles: No ventriculomegaly. Paranasal sinuses: Visualized sinuses are unremarkable. No fluid levels. Mastoid air cells: Visualized mastoid air cells are well aerated. Bones: Along the inner table of the occipital bone there scalloped lesions which likely represent arachnoid granulations. There is were also present on prior examination.. No acute fracture. Soft tissues: Unremarkable. CT/CT head wo/w con [id number] IMPRESSION: No acute intracranial abnormality. Chronic changes as above.
--- NOTE | 2024-04-28 08:31 | ECG_ITS ---
[employer] Test Date: 2024-04-28 Pat Name: Sai Esqueda Department: Room: Gender: Male Learning Disabilities Resource Teacher: : 1945 Requested By: Phillip Castillo Order Number: [id number] Laci MD: Wyatt Ramirez M.D. Measurements Intervals [place] Rate: 66 P: 58 NC: 198 QRS: -32 QRSD: 96 T: 33 QT: 390 QTc: 411 Interpretive Statements SINUS RHYTHM LEFT AXIS DEVIATION [QRS AXIS < -30] LOW QRS VOLTAGE IN PRECORDIAL LEADS [QRS DEFLECTION < 1.0 mV IN CHEST LEADS] LEFT VENTRICULAR HYPERTROPHY AND ST-T CHANGE [VOLTAGE CRITERIA PLUS ST/T ABNORMALITY] Compared to ECG 05/27/2016 10:29:20 Low QRS voltage now present Left ventricular hypertrophy now present ST (T wave) deviation now present Ventricular premature complex(es) no longer present Electronically Signed On 04-28-2024 22:59:51 SHOE STITCHER by Wyatt Ramierz M.D. [email or web address]
[2024-04-28 08:58] LABS: Basophils % 0.2 %; Eosinophils % 0.4 %; Hematocrit 38.2 % (37-53); Lymphocytes % 22.5 %; Mean Corpuscular HGB Conc 33.2 g/dL (30-55); Mean Corpuscular Hemoglobin 32.6 pg (27-33); Mean Corpuscular Volume 97.9 fl (82-101); Mean Platelet Volume 9.3 fL (7.4-10.4); Monocytes # 0.3 10^3/uL (0.2-0.9); Monocytes % 6.5 %; Neutrophils # 3.15 10^3/uL (1.8-7.7); Neutrophils % 70.2 %; Nucleated Red Blood Cells % 0 %; Platelet Count 187 10^3/cmm (157-399); Red Cell Distribution Width 13.4 % (12.1-15.1); White Blood Count 4.49 10^3/uL (3.29-11.43)
[2024-04-28 09:12] LABS: Alanine Aminotransferase 20 U/L (0-41); Albumin Level 3.9 g/dL (3.5-5.2); Alkaline Phosphatase 104 U/L (40-130); Anion Gap 14.4 (5-19); Aspartate Amino Transferase 17 U/L (0-40); Blood Urea Nitrogen 13 mg/dL (8-23); Calcium 8.3 mg/dL (8.5-10.5); Carbon Dioxide 25 mmol/L (22-29); Chloride 104 mmol/L (98-107); Creatinine Clr Calc Pharmacy 62.2978; Globulin 2.3 g/dL (1.3-4.6); Glucose 124 mg/dL (65-115); Magnesium 2.4 mg/dL (1.7-2.3); Osmolality Calculated 290 mOsm/kg (285-295); Potassium 4.4 mmol/L (3.5-5.1); Sodium 139 mmol/L (136-145); Total Bilirubin 0.2 mg/dL (0.15-1.2); Total Protein 6.2 g/dL (6.6-8.7)
[2024-04-28] MEDS: iohexol 350 mg/mL 500 mL Btl (per mL) IV (09:38)
[2024-04-28 10:23] LABS: Glucose Point of Care 120 mg/dL (70-110)
[2024-04-28] MEDS: oxyCODONE 5 mg IR Tab/Cap 10 MG PO (10:27)
[2024-04-28 10:28] LABS: Bilirubin Urine Negative (Negative); Blood Urine Negative (Negative); Glucose Urine UA Negative (Normal); Ketones Urine Negative (Negative); Leukocyte Esterase Urine Negative (Negative); Nitrate Urine Negative (Negative); Protein Urine Negative (Negative); Specific Gravity, Urine 1.014 (1.005-1.030); Urine Appearance Clear (CLEAR); Urine Color Yellow (Yellow); Urobilinogen Urine 0.2 mg/dL (Negative)
[2024-04-28 10:36] LABS: Add Urine Microscopic? YES; Bacteria Urine None Seen /hpf; Hyaline Casts Urine 0-4 /lpf; RBC Urine 0-2 /hpf (0-2); Squamous Epithelial Cell Urine 0-5 /hpf (0-5); WBC Urine 0-5 /hpf (0-5)
--- NOTE | 2024-04-28 11:32 | PC.NURSE ---
Orthostatics laying-150/92 sitting- 141/76 standing- 137/76 pt also ambulated by tech, stated he did great.
--- NOTE | 2024-05-07 15:33 | DCPLANNER ---
faxed outpatient mri order to scheduling
== END 2024-04-28 12:18 | disposition home or self-care (01) ==
PROVIDERS: Family Medicine; Emergency Provider Physician Assistant Medical; PCP Internal Medicine Medical Oncology
DX: H83.09 Labyrinthitis, unspecified ear (principal); C90.00 Multiple myeloma not having achieved remission; C79.51 Secondary malignant neoplasm of bone; Z87.891 Personal history of nicotine dependence
CPT/HCPCS: 36415; 36416; 70470; 80053; 81001; 82962; 83735; 85025; 93005; 99285

== ENCOUNTER 2024-05-16 09:52 | Outpatient (CLI) | payer OTHER, SELFPAY ==
--- NOTE | 2024-05-16 09:56 | MR_ITS ---
WS: [id number] MRI BRAIN WITH AND WITHOUT CONTRAST HISTORY: DIZZINESS COMPARISON: 05/27/2022 TECHNIQUE: Multiplanar imaging performed through the brain with MultiHance 16 ml's IV. No acute infarcts are seen. Mena-white matter differentiation is well preserved. Very minimal small vessel disease. Mild cerebral and cerebellar atrophy is very slightly progressed since 2022. Mild hippocampal atrophy, RIGHT greater than LEFT. No susceptibility artifacts or prior lacunar infarcts. Ventricles and extra-axial spaces are normal. Clivus and pituitary gland are normal. Visualized posterior fossa and brainstem are also normal. Postcontrast images are negative for masses or vascular malformations. Dural venous sinuses are normal. Paranasal sinuses: Well aerated with no significant disease. Mastoid air cells: Normal. Calvarium and scalp: Normal. MR/MR head wo/w con [id number] IMPRESSION: 1. No acute infarct or hemorrhage. 2. No enhancing masses or vascular malformations. 3. Mild cerebral, cerebellar and hippocampal atrophy with minimal progression since 2022. No interval infarct. 4. No abnormality at the cerebellopontine angle or along the internal auditory canals.
[2024-05-16] MEDS: gadobenate dimeglumine 20 mL vial IV (11:14)
== END 2024-05-16 09:53 | disposition home or self-care (01) ==
LOC: RAD 09:54
PROVIDERS: PCP Internal Medicine; Visit Provider Family Medicine
DX: Z01.89 Encounter for other specified special examinations (principal); G31.89 Other specified degenerative diseases of nervous system
CPT/HCPCS: 70553

== ENCOUNTER 2024-05-30 09:29 | Oncology outpatient (recurring) (ONCR) | payer OTHER, SELFPAY ==
[2024-05-16 12:11] LABS: Basophils % 0.2 %; Eosinophils % 0.2 %; Hematocrit 38.8 % (37-53); Lymphocytes % 17.6 %; Mean Corpuscular HGB Conc 33.2 g/dL (30-55); Mean Corpuscular Hemoglobin 32.9 pg (27-33); Mean Platelet Volume 9.2 fL (7.4-10.4); Monocytes # 0.3 10^3/uL (0.2-0.9); Monocytes % 5.9 %; Neutrophils # 4.16 10^3/uL (1.8-7.7); Neutrophils % 75.9 %; Nucleated Red Blood Cells % 0 %; Platelet Count 165 10^3/cmm (157-399); Red Blood Count 3.92 10^6/uL (3.85-5.65); Red Cell Distribution Width 13.1 % (12.1-15.1); White Blood Count 5.47 10^3/uL (3.29-11.43)
[2024-05-16 12:33] LABS: Alanine Aminotransferase 44 U/L (0-41); Alkaline Phosphatase 105 U/L (40-130); Anion Gap 14.4 (5-19); Aspartate Amino Transferase 35 U/L (0-40); Blood Urea Nitrogen 12 mg/dL (8-23); Calcium 8.6 mg/dL (8.5-10.5); Carbon Dioxide 26 mmol/L (22-29); Chloride 102 mmol/L (98-107); Globulin 2.5 g/dL (1.3-4.6); Glucose 136 mg/dL (65-115); Immunoglobulin IGG 309 mg/dL (700-1600); Lactate Dehydrogenase 151 U/L (135-225); Osmolality Calculated 288 mOsm/kg (285-295); Potassium 4.4 mmol/L (3.5-5.1); Sodium 138 mmol/L (136-145); Total Bilirubin 0.2 mg/dL (0.15-1.2); Total Protein 6.5 g/dL (6.6-8.7)
[2024-05-16 12:43] LABS: Immunoglobulin IGM < 25 mg/dL (40-230)
[2024-05-16 12:46] LABS: Immunoglobulin IGA 894 mg/dL (70-400)
[2024-05-17 06:30] LABS: PROTEIN, TOTAL 6.4 g/dL (6.1-8.1)
[2024-05-17 20:20] LABS: ABNORMAL PROTEIN BAND 1 0.7 g/dL (NONE DETECTED); ALBUMIN 3.9 g/dL (3.8-4.8); ALPHA 1 GLOBULIN 0.3 g/dL (0.2-0.3); ALPHA 2 GLOBULIN 0.7 g/dL (0.5-0.9); BETA 1 GLOBULIN 0.4 g/dL (0.4-0.6); BETA 2 GLOBULIN 0.3 g/dL (0.2-0.5); GAMMA GLOBULIN 0.9 g/dL (0.8-1.7)
[2024-05-18 14:30] LABS: KAPPA LIGHT CHAIN, FREE, SERUM 36.9 mg/L (3.3-19.4); KAPPA/LAMBDA LIGHT CHAINS FREE 11.18 (0.26-1.65); LAMBDA LIGHT CHAIN, FREE, SERU 3.3 mg/L (5.7-26.3)
== END 2024-06-01 23:59 | disposition home or self-care (01) ==
PROVIDERS: Nurse Practitioner; PCP Internal Medicine; Visit Provider Internal Medicine
DX: C90.00 Multiple myeloma not having achieved remission (principal); C79.51 Secondary malignant neoplasm of bone; R42 Dizziness and giddiness; K29.00 Acute gastritis without bleeding; G89.3 Neoplasm related pain (acute) (chronic); I95.1 Orthostatic hypotension; M47.815 Spondylosis without myelopathy or radiculopathy, thoracolumbar region; Z92.3 Personal history of irradiation; Z92.21 Personal history of antineoplastic chemotherapy; Z79.899 Other long term (current) drug therapy
CPT/HCPCS: 36415; 80053; 82784; 83615; 83883; 84155; 84165; 85025; 99213; 99214

== ENCOUNTER 2024-06-27 11:19 | Oncology outpatient (recurring) (ONCR) | payer OTHER, SELFPAY ==
[2024-06-27 11:34] LABS: Basophils % 0.2 %; Eosinophils % 0.4 %; Hematocrit 37.2 % (37-53); Mean Corpuscular HGB Conc 33.3 g/dL (30-55); Mean Corpuscular Hemoglobin 32.4 pg (27-33); Mean Corpuscular Volume 97.1 fl (82-101); Mean Platelet Volume 8.7 fL (7.4-10.4); Monocytes # 0.3 10^3/uL (0.2-0.9); Neutrophils # 4.13 10^3/uL (1.8-7.7); Nucleated Red Blood Cells % 0 %; Platelet Count 228 10^3/cmm (157-399); Red Blood Count 3.83 10^6/uL (3.85-5.65); Red Cell Distribution Width 12.9 % (12.1-15.1)
[2024-06-27 11:53] LABS: Alanine Aminotransferase 14 U/L (0-41); Alkaline Phosphatase 81 U/L (40-130); Anion Gap 14.5 (5-19); Aspartate Amino Transferase 18 U/L (0-40); Blood Urea Nitrogen 9 mg/dL (8-23); Calcium 8.4 mg/dL (8.5-10.5); Carbon Dioxide 25 mmol/L (22-29); Chloride 102 mmol/L (98-107); Globulin 2.8 g/dL (1.3-4.6); Glucose 141 mg/dL (65-115); Osmolality Calculated 285 mOsm/kg (285-295); Potassium 4.5 mmol/L (3.5-5.1); Sodium 137 mmol/L (136-145); Total Bilirubin 0.3 mg/dL (0.15-1.2); Total Protein 6.8 g/dL (6.6-8.7)
== END 2024-07-02 23:59 | disposition home or self-care (01) ==
PROVIDERS: PCP Internal Medicine; Visit Provider Internal Medicine
DX: C79.51 Secondary malignant neoplasm of bone (principal); Z85.79 Personal history of other malignant neoplasms of lymphoid, hematopoietic and related tissues; R42 Dizziness and giddiness; R31.9 Hematuria, unspecified; I95.1 Orthostatic hypotension; Z92.3 Personal history of irradiation; M47.895 Other spondylosis, thoracolumbar region; G89.3 Neoplasm related pain (acute) (chronic); Z92.21 Personal history of antineoplastic chemotherapy; Z92.25 Personal history of immunosuppression therapy
CPT/HCPCS: 36415; 80053; 85025; 99213

== ENCOUNTER 2024-09-26 12:55 | Oncology outpatient (recurring) (ONCR) | payer OTHER, SELFPAY ==
[2024-09-26 13:18] LABS: Basophils % 0.2 %; Eosinophils % 0.6 %; Hematocrit 36.5 % (37-53); Lymphocytes # 0.7 10^3/uL (0.8-4.8); Mean Corpuscular HGB Conc 33.7 g/dL (30-55); Mean Corpuscular Hemoglobin 32.9 pg (27-33); Mean Corpuscular Volume 97.6 fl (82-101); Monocytes # 0.3 10^3/uL (0.2-0.9); Neutrophils # 5.04 10^3/uL (1.8-7.7); Neutrophils % 81.9 %; Nucleated Red Blood Cells % 0 %; Platelet Count 150 10^3/cmm (157-399); Red Blood Count 3.74 10^6/uL (3.85-5.65); Red Cell Distribution Width 13.2 % (12.1-15.1); Reticulocyte % 1.6 % (0.5-2.0); White Blood Count 6.16 10^3/uL (3.29-11.43)
[2024-09-26 13:35] LABS: Alanine Aminotransferase 20 U/L (0-41); Albumin Level 3.8 g/dL (3.5-5.2); Alkaline Phosphatase 77 U/L (40-130); Anion Gap 15.5 (5-19); Aspartate Amino Transferase 18 U/L (0-40); Blood Urea Nitrogen 14 mg/dL (8-23); Calcium 8.4 mg/dL (8.5-10.5); Carbon Dioxide 24 mmol/L (22-29); Chloride 103 mmol/L (98-107); Globulin 2.4 g/dL (1.3-4.6); Glucose 142 mg/dL (65-115); Lactate Dehydrogenase 139 U/L (135-225); Osmolality Calculated 289 mOsm/kg (285-295); Potassium 4.5 mmol/L (3.5-5.1); Sodium 138 mmol/L (136-145); Total Bilirubin 0.3 mg/dL (0.15-1.2); Total Protein 6.2 g/dL (6.6-8.7)
[2024-09-26 17:20] LABS: Immunoglobulin IGA 771 mg/dL (70-400)
[2024-09-26 17:21] LABS: Immunoglobulin IGG < 300 mg/dL (700-1600); Immunoglobulin IGM < 25 mg/dL (40-230)
[2024-09-27 07:24] LABS: PROTEIN, TOTAL 6.2 g/dL (6.1-8.1)
[2024-09-27 16:09] LABS: KAPPA LIGHT CHAIN, FREE, SERUM 39.3 mg/L (3.3-19.4); KAPPA/LAMBDA LIGHT CHAINS FREE 11.91 (0.26-1.65); LAMBDA LIGHT CHAIN, FREE, SERU 3.3 mg/L (5.7-26.3)
[2024-09-27 16:19] LABS: Creatinine, Random Urine 39 mg/dL (20-320); Protein, Total, Random <4 mg/dL (5-25); Protein/Creatinine Ratio NOTE (0.025-0.148); Protein/Creatinine Ratio NOTE mg/g creat (25-148)
[2024-09-28 08:55] LABS: ABNORMAL PROTEIN BAND 1 0.7 g/dL (NONE DETECTED); ALBUMIN 3.8 g/dL (3.8-4.8); ALPHA 1 GLOBULIN 0.3 g/dL (0.2-0.3); ALPHA 2 GLOBULIN 0.7 g/dL (0.5-0.9); BETA 1 GLOBULIN 0.3 g/dL (0.4-0.6); BETA 2 GLOBULIN 0.3 g/dL (0.2-0.5); GAMMA GLOBULIN 0.9 g/dL (0.8-1.7)
[2024-10-03 13:34] LABS: Albumin,Urine Random 0 %; Alpha-1-Globulins Urine Random 0 %; Alpha-2-Globulins Urine Random 0 %; Beta-Globulin,Urine Random 0 %; Gamma Globulin,Urine Random 0 %
== END 2024-10-01 23:59 | disposition home or self-care (01) ==
PROVIDERS: PCP Internal Medicine; Visit Provider Internal Medicine
DX: Z08 Encounter for follow-up examination after completed treatment for malignant neoplasm (principal); C79.51 Secondary malignant neoplasm of bone; R42 Dizziness and giddiness; R31.9 Hematuria, unspecified; Z92.3 Personal history of irradiation; Z85.79 Personal history of other malignant neoplasms of lymphoid, hematopoietic and related tissues; M79.89 Other specified soft tissue disorders; G89.29 Other chronic pain
CPT/HCPCS: 36415; 80053; 82570; 82784; 83615; 83883; 84155; 84156; 84165; 84166; 85025; 85045; 86140; 86334; 99214

== ENCOUNTER 2024-12-26 11:22 | Oncology outpatient (recurring) (ONCR) | payer OTHER, SELFPAY ==
[2024-12-26 12:12] LABS: Hematocrit 36.9 % (37-53); Hemoglobin 12.30 g/dL (11.27-16.99); Mean Corpuscular HGB Conc 33.3 g/dL (30-55); Mean Corpuscular Hemoglobin 32.1 pg (27-33); Mean Corpuscular Volume 96.3 fl (82-101); Nucleated Red Blood Cells % 0 %; Platelet Count 183 10^3/cmm (157-399); Red Blood Count 3.83 10^6/uL (3.85-5.65); White Blood Count 6.25 10^3/uL (3.29-11.43)
[2024-12-26 12:34] LABS: Alanine Aminotransferase 15 U/L (0-41); Albumin Level 4.1 g/dL (3.5-5.2); Alkaline Phosphatase 72 U/L (40-130); Anion Gap 13.6 (5-19); Aspartate Amino Transferase 15 U/L (0-40); Blood Urea Nitrogen 15 mg/dL (8-23); Calcium 8.9 mg/dL (8.5-10.5); Carbon Dioxide 27 mmol/L (22-29); Chloride 104 mmol/L (98-107); Creatinine Clr Calc Pharmacy 57.0396; Globulin 2.7 g/dL (1.3-4.6); Glucose 100 mg/dL (65-115); Osmolality Calculated 291 mOsm/kg (285-295); Potassium 4.6 mmol/L (3.5-5.1); Sodium 140 mmol/L (136-145); Total Protein 6.8 g/dL (6.6-8.7)
[2024-12-27 06:31] LABS: PROTEIN, TOTAL 6.5 g/dL (6.1-8.1)
[2024-12-27 14:10] LABS: KAPPA LIGHT CHAIN, FREE, SERUM 35.5 mg/L (3.3-19.4); KAPPA/LAMBDA LIGHT CHAINS FREE 10.14 (0.26-1.65); LAMBDA LIGHT CHAIN, FREE, SERU 3.5 mg/L (5.7-26.3)
[2024-12-28 08:35] LABS: ALPHA 1 GLOBULIN 0.3 g/dL (0.2-0.3); ALPHA 2 GLOBULIN 0.8 g/dL (0.5-0.9); BETA 1 GLOBULIN 0.4 g/dL (0.4-0.6); BETA 2 GLOBULIN 0.3 g/dL (0.2-0.5)
== END 2025-01-01 23:59 | disposition home or self-care (01) ==
PROVIDERS: PCP Internal Medicine; Visit Provider Internal Medicine
DX: C90.00 Multiple myeloma not having achieved remission (principal); C79.51 Secondary malignant neoplasm of bone; R42 Dizziness and giddiness; R31.9 Hematuria, unspecified; Z92.3 Personal history of irradiation
CPT/HCPCS: 36415; 80053; 82784; 83883; 84155; 84165; 85025; 86334; 99214